=== PATIENT | female | born 1975 | race Caucasian/White ===

== ENCOUNTER 2017-10-11 11:16 | Emergency (ER) | payer OTHER, SELFPAY | END 2017-10-11 12:58 | disposition home or self-care (01) | PROVIDERS: Emergency Provider Emergency Medicine; Family Provider Internal Medicine Adolescent Medicine; Visit Provider Emergency Medicine | DX: S83.92XA Sprain of unspecified site of left knee, initial encounter (principal); S20.211A Contusion of right front wall of thorax, initial encounter; W18.2XXA Fall in (into) shower or empty bathtub, initial encounter; Y92.002 Bathroom of unspecified non-institutional (private) residence as the place of occurrence of the external cause; Z79.899 Other long term (current) drug therapy; E11.9 Type 2 diabetes mellitus without complications; I10 Essential (primary) hypertension; E78.5 Hyperlipidemia, unspecified; K21.9 Gastro-esophageal reflux disease without esophagitis; D64.9 Anemia, unspecified; Z88.6 Allergy status to analgesic agent | CPT/HCPCS: 71101; 73562; 99282 ==

== ENCOUNTER → 2017-11-20 14:44 | Outpatient (CLI) | payer MEDICAID, SELFPAY ==
[2017-11-20 16:37] LABS: Blood Urea Nitrogen 14 mg/dL (7-18); Creatinine,Serum 0.84 mg/dL (0.55-1.02); Estimated Glomerular Filt Rate 74 ml/min (>60); GFR (African American) 89 ML/MIN (>60)
== END ==
PROVIDERS: PCP Internal Medicine Adolescent Medicine; Visit Provider Podiatrist
DX: M79.671 Pain in right foot (principal); M79.672 Pain in left foot; M72.2 Plantar fascial fibromatosis
CPT/HCPCS: 36415; 82565; 84520

== ENCOUNTER → 2017-11-21 12:56 | Outpatient (CLI) | payer MEDICAID, SELFPAY ==
--- NOTE | 2017-11-21 13:02 | MR_ITS ---
MR foot RT wo/w con Ordering Physician: Nichole Phan DPM Patient Age: 42 years: Female . HISTORY: ITS.REASON: RT PT, FDL TENDON TRANSFER, R/O NEW TEAR Status post right posterior tibialis tendon repairFDL transfer surgery. Excision of bone spur medial malleolus to 2916. 1. Pain in both feet M79.671; M79.672 2. Posterior tibial tendon dysfunction (PTTD) of right lower extremity 3. Plantar fasciitis of right foot 4. Plantar fasciitis of left foot M72.2 TECHNIQUE: Multiplanar multisequence imaging on 1.5 Renee MRI right foot COMPARISON :Previous radiographs 08/17/2016 & September 03, 2017 FINDINGS . I believe there is Abnormal signal is seen throughout the tibialis posterior tendon. Begins proximally and I believe evident just behind the medial medial malleolus. More distally Postsurgical changes are seen at the medial aspect of navicular at the posterior tibialis tendon insertion region. The flexor digitalis longus tendon appears relatively enlarged & hypertrophied. It seems to blend in with the medial aspect of of navicular which may reflect the reported FD L tendon transfer procedure.. There are likely some scarring & fibrosis here accounting for low signal changes here overlying the medial margin of the navicular. The recent weightbearing plain films shows slight pes planus is less evident on the MR.. The metatarsals & tarsals intact.. Minimal spurring at insertion of Achilles tendon. No remarkable plantar calcaneal spur noted on MR normal recent prior films. No inflammation along the plantar aponeurosis. The ankle joint maintained. Subtalar joint upper normal fluid. Scant edema throughout soft tissues of the heel pad region negligible. There is some mild roughening at tip of the medial malleolus which may reflect a previous trimmed spurring in this region. Nonspecific ill-defined IMPRESSION Postsurgical changes medial aspect navicular and overlying this region are evident reflecting theFDL transfer to address the abnormal posterior tibialis tendon . There appear to be abnormal signal and atrophy of the posterior tibialis tendon with slight enlargement of the flexor digitorum longus tendon behind the medial malleolus.
== END ==
PROVIDERS: Family Provider Internal Medicine Adolescent Medicine; PCP Internal Medicine Adolescent Medicine; Visit Provider Podiatrist
DX: M79.671 Pain in right foot (principal)
CPT/HCPCS: 73720; A9576

== ENCOUNTER → 2017-12-03 17:16 | Outpatient (CLI) | payer MEDICAID, SELFPAY | PROVIDERS: Visit Provider Podiatrist | DX: M21.41 Flat foot [pes planus] (acquired), right foot (principal); M21.42 Flat foot [pes planus] (acquired), left foot; M79.671 Pain in right foot; M79.672 Pain in left foot; S86.892A Other injury of other muscle(s) and tendon(s) at lower leg level, left leg, initial encounter ==

== ENCOUNTER → 2017-12-05 08:00 | Outpatient (CLI) | payer MEDICAID, SELFPAY ==
--- NOTE | 2017-12-05 15:38 | XR_ITS ---
XR ankle LT min 3V HISTORY: Left ankle pain ORDERING PHYSICIAN: Nichole Phan DPM PATIENT AGE: 42 years COMPARISON: 09/03/2017 FINDINGS: No fracture or dislocation. No lytic or blastic change. There is normal mineralization.. The joint spaces are well-preserved. No significant degenerative/arthritic changes. No erosive changes evident. Minimal spurring once again noted involving the major distal tibia. Small calcaneal spur noted IMPRESSION: No change no acute finding. Minimal spurring anterior distal tibia with small calcaneal spur present
--- NOTE | 2017-12-05 15:38 | XR_ITS ---
XR ankle RT min 3V HISTORY: ITS.REASON: BILATERAL ANKLE PAIN ORDERING PHYSICIAN: Nichole Phan DPM PATIENT AGE: 42 years COMPARISON: 09/03/2017 FINDINGS: Weightbearing views are performed No fracture or dislocation. No lytic or blastic change. There is normal mineralization.. The joint spaces are well-preserved. No significant degenerative/arthritic changes. No erosive changes evident. There is a small calcific density at the medial malleolus nonspecific and may be due to old injury. There is minimal spurring of the anterior distal tibia as before IMPRESSION: 1. No no change with no acute finding. 2. Suspect old small avulsion fracture medial malleolus
== END ==
PROVIDERS: Visit Provider Podiatrist
DX: M25.571 Pain in right ankle and joints of right foot; M25.572 Pain in left ankle and joints of left foot
CPT/HCPCS: 73610

== ENCOUNTER 2017-12-11 08:59 | Outpatient (RCR) | payer MEDICAID, SELFPAY ==
--- NOTE | 2017-12-11 09:41 | HMH.PTOPEV ---
Rehab Outpatient Evaluation Rehab OP Evaluation Start: 12/11/17 09:30 Freq: Status: Active Protocol: Document 12/11/17 09:30 MAGGY (Rec: 12/11/17 09:40 MAGGY [id number]) Electronically Signed By Neri Rogers, PT 12/11/17 09:30 Outpatient Therapy Subjective History Subjective History Pt reports h/o chronic R foot pain since undergoing sx. in 2015 for a FDL T/F. Pt reports sx. procedure improved s/s for a while, but a 'new pain' started ~6 months ago. Pt reports medial aspect foot pain, with referred pain into medial ankle/calf area. Chief Complaint Pain Symptom Type Ache Throb Sharp Dull Symptoms Relieved By Rest/Positioning Symptoms Aggravated By Standing Physical Activity Walking Prior Functional Limitations Housework Standing Walking Current Functional Limitations Housework Standing Walking Symptom Description Constant but Variable Level of pain today (0-10) 3 Pain scale - at its best (0-10) 2 Pain scale - at its worst (0-10) 5 Ankle/Foot Eval Gait Observation General Gait Pattern Observation No Deviations/Normal Antalgic Gait Assistive Device Ambulation Assistive Device None Palpation Tenderness right Ankle/Foot Palpation Findings Tenderness Ankle/Foot Palpation Overall Comment 3/4 post. tib. tendon ROM left Ankle/Foot ROM Reason Not Measured Within Functional Limits right Ankle/Foot Dorsiflexion w/Knee Flexed 0-10 Active Range of Motion (degrees) Ankle/Foot Plantar Flexion Active Range 0-50 of Motion (degrees) Ankle/Foot Eversion Active Range of 0-30 Motion (degrees) Ankle/Foot Inversion Active Range of 0-35 Motion (degrees) Ankle/Foot ROM Limitations Pain MMT left Ankle Dorsiflexion Strength Grade 4 Good Ankle Plantarflexion Strength Grade 4 Good Foot Eversion Strength Grade 4- Good- Foot Inversion Strength Grade 4- Good- right Ankle Dorsiflexion Strength Grade 4- Good- Ankle Plantarflexion Strength Grade 4- Good- Foot Eversion Strength Grade 4- Good- Foot Inversion Strength Grade 3+ Fair+ Outpatient Therapy Assessment Impairments Problems/Impairmments Palpation Tenderness
== END 2017-12-11 09:00 | disposition home or self-care (01) ==
LOC: PT 08:59
PROVIDERS: Family Provider Internal Medicine Adolescent Medicine; Visit Provider Podiatrist
DX: M21.41 Flat foot [pes planus] (acquired), right foot (principal); M21.42 Flat foot [pes planus] (acquired), left foot; M79.671 Pain in right foot; M79.672 Pain in left foot; S86.892A Other injury of other muscle(s) and tendon(s) at lower leg level, left leg, initial encounter

== ENCOUNTER → 2017-12-12 12:29 | Outpatient (CLI) | payer MEDICAID, SELFPAY ==
[2017-12-12 12:58] LABS: Basophils % 0.3 % (0.1-2.0); Eosinophils # 0.1 K/mm3 (0.0-0.4); Eosinophils % 0.6 % (0.1-12.0); Hematocrit 36.3 % (37.0-47.0); Hemoglobin 12.2 g/dL (12.2-16.2); Lymphocytes # 2.9 K/mm3 (0.7-4.5); Lymphocytes % 23.8 K/mm3 (10-50); Mean Corpuscular HGB Conc 33.6 g/dL (31.8-35.4); Mean Corpuscular Hemoglobin 25.9 pg (27.0-31.2); Mean Corpuscular Volume 77.3 fl (81-99); Mean Platelet Volume 7.4 fl (7.4-10.4); Monocytes # 0.6 K/mm3 (0.1-1.0); Monocytes % 4.5 % (1.7-9.3); Neutrophils # 8.7 K/mm3 (1.8-7.8); Neutrophils % 70.8 % (37.0-80.0); Platelet Count 367 K/mm3 (142-424); Red Blood Count 4.69 M/mm3 (4.20-5.40); Red Cell Distribution Width 13.7 % (11.5-17.5); White Blood Count 12.3 K/mm3 (4.8-10.8)
[2017-12-12 13:16] LABS: Alanine Aminotransferase 29 U/L (12-78); Albumin Level 3.5 gm/dL (3.4-5.0); Albumin/Globulin Ratio 0.9 (1.1-1.8); Alkaline Phosphatase 68 U/L (46-116); Anion Gap 11.9 mEq/L (5-15); Aspartate Amino Transferase 10 U/L (15-37); Bilirubin,Total 0.4 mg/dL (0.2-1.0); Blood Urea Nitrogen 17 mg/dL (7-18); Calcium 9.2 mg/dL (8.5-10.1); Carbon Dioxide 27 mmol/L (21.0-32.0); Chloride 104 mmol/L (98-107); Chol/HDL Ratio 3.4 (1-3.5); Cholesterol 163 mg/dL (140-200); Creatinine,Serum 0.85 mg/dL (0.55-1.02); Estimated Glomerular Filt Rate 73 ml/min (>60); GFR (African American) 88 ML/MIN (>60); Glucose 131 mg/dL (74-106); HDL Cholesterol 48 mg/dL (29-89); LDL Cholesterol 54 mg/dL (0-130); Potassium 3.9 mmoL/L (3.5-5.1); Sodium 139 mmol/L (136-145); Thyroid Stimulating Hormone 2.33 uIU/ml (0.358-3.740); Total Protein,Serum 7.5 gm/dL (6.4-8.2); Triglycerides 305 mg/dL (30-200); VLDL Cholesterol 61 mg/dL (0-40)
[2017-12-12 14:00] LABS: Hemoglobin A1C 6.8 % (0.0-7.0)
== END ==
PROVIDERS: PCP Internal Medicine Adolescent Medicine; Visit Provider Internal Medicine Adolescent Medicine
DX: E78.5 Hyperlipidemia, unspecified (principal); E11.9 Type 2 diabetes mellitus without complications; E04.1 Nontoxic single thyroid nodule; K62.5 Hemorrhage of anus and rectum
CPT/HCPCS: 36415; 80053; 80061; 83036; 84443; 85025

== ENCOUNTER → 2017-12-14 09:44 | Outpatient (POV) | payer MEDICAID, SELFPAY | PROVIDERS: Visit Provider Podiatrist | DX: Z00.00 Encounter for general adult medical examination without abnormal findings (principal) ==

== ENCOUNTER → 2018-01-11 11:31 | Outpatient (POV) | payer MEDICAID, SELFPAY | PROVIDERS: Visit Provider Podiatrist | DX: Z00.00 Encounter for general adult medical examination without abnormal findings (principal) ==

== ENCOUNTER 2018-03-07 08:00 | Outpatient (RCR) | payer MEDICAID, SELFPAY ==
--- NOTE | 2018-01-30 14:55 | HMH.PTOPEV ---
Rehab Outpatient Evaluation Rehab OP Evaluation Start: 01/29/18 17:22 Freq: Status: Active Protocol: Document 01/29/18 17:22 RUBY (Rec: 01/29/18 18:23 MAGILANNY [id number]) Electronically Signed By Zeferino Berg, PT 01/29/18 17:22 Outpatient Therapy Subjective History Subjective History Ms. Farfan is a 42 year old female who presents to outpatient PT for chronic bilateral ft. pain R>L for a few years of insidious onset that has progressively gotten worse per pt. report. Patient underwent surgical reconstruction R posterior tibialis tendon with FDL transfer in 2016. Obserbvation indicates significant bilateral pes planus. Pt. currently using orthotics for arch support for approximatley 1 month. PMH includes HTN, high cholesterol , hysterectomy. Chief Complaint Pain Symptom Type Sharp Other Symptoms Relieved By Rest/Positioning Heat Ice Brace/Support OTC Meds Prescription Meds Symptoms Aggravated By Standing Physical Activity Walking Prior Functional Limitations None Current Functional Limitations Housework Standing Squatting Recreation Activity Walking Stairs Balance Symptom Description Activity Dependent Level of pain today (0-10) 0 Pain scale - at its best (0-10) 0 Pain scale - at its worst (0-10) 7 Ankle/Foot Eval Gait Observation General Gait Pattern Observation Antalgic Gait Assistive Device Ambulation Assistive Device None Palpation Tenderness right Ankle/Foot Palpation Findings Tenderness Ankle/Foot Palpation Overall Comment R post. tibialis insertion 2/4 +TTP ATF TTP negative PTF TTP negative CF TTP negative Deltoid ligament TTP negative left Ankle/Foot Palpation Findings None/Nor
--- NOTE | 2018-03-07 10:08 | HMH.RHREAS ---
Rehab Reassessment Rehab OP Re-assessment Start: 03/07/18 08:20 Freq: Status: Active Protocol: Document 03/07/18 08:20 RUBY (Rec: 03/07/18 08:55 RUBY [id number]) Electronically Signed By Zeferino Berg, PT 03/07/18 08:20 Rehab Re-assessment Subjective Subjective Pt reports 0% improvement to date. Pt reports non- compliance with HEP. Objective Objective Notes AROM: -DF: 3 -PF: 60 -INV: 35 -EV: 16 MMT: -INV 4/5 -PF 4/5 -DF 4+/5 -EV 4+/5 Pain: current 01/29; worst past week 05/31 Neuro: WNL Assessment Progress Assessment Slower Than Expected Assessment Notes Non-compliance with HEP/ regular attendance to treatment noted. Persistent functional limitations with any standing/walking activity. Reviewed importance of attendance and completion of HEP for decreased symptoms. Patient goals met STG's Goals Not Met LTG's Revised Goals NA Plan Plan Continue with POC Frequency of Therapy 2x/week Duration of therapy 4 weeks Time and Billing Re-Eval Time 15 Re-Eval Billing Units 1 PHYSICIAN CERTIFICATION: I certify the specified therapy services for Ena Farfan are required, authorized, and reviewed every 30 days.
== END 2018-03-07 08:01 | disposition home or self-care (01) ==
LOC: PT 08:00
PROVIDERS: Family Provider Internal Medicine Adolescent Medicine; PCP Internal Medicine Adolescent Medicine; Visit Provider Podiatrist
DX: M76.822 Posterior tibial tendinitis, left leg (principal); M76.821 Posterior tibial tendinitis, right leg
CPT/HCPCS: 97014; 97016; 97033; 97035; 97110; 97164; G0283

== ENCOUNTER 2018-03-14 08:10 | Observation (INO) ==
--- NOTE | 2018-03-14 08:55 | Emergency Department Note ---
ED Disposition Clinical Impression: Atypical chest pain, Hypertension, Diabetes, Chest pain, Elevated d-dimer Disposition: Still a Patient Condition on Discharge: Fair Referrals: Sang Araiza MD [Primary Care Provider] - - Critical Care Critical Care Time: No Attestation: On 03/14/18, the high probability of a clinically significant, sudden or life threatening deterioration of the following system(s) required my full and direct attention, intervention and personal management. The time I documented below is in addition to time spent performing reported procedures but includes the following listed in this critical care notation. Medical Decision Making - Wyatt Inquiry Pt receiving controlled substance: No Wyatt was queried for this patient: No Vital Signs: 03/14/18 08:11 03/14/18 09:11 03/14/18 12:00 Temperature 98.0 F 98.0 F Temperature Source Oral Oral Pulse Rate [Right Radial] 76 79 77 Respiratory Rate 20 18 18 Blood Pressure [Right Arm] 148/99 133/100 126/80 Blood Pressure Mean [Right Arm] 115 111 95 Blood Pressure Source [Right Arm] Automatic Cuff Automatic Cuff Blood Pressure Position [Right Arm] Sitting Sitting 02 Sat by Pulse Oximetry 98 97 95 Oxygen Delivery Method Room Air Room Air - Lab Data Lab Results 03/14/18 09:10: WBC 6.4, RBC 4.74, Hgb 11.7 L, Hct 34.9 L, MCV 73.5 L, MCH 24.7 L, MCHC 33.7, RDW 14.3, Plt Count 337, MPV 7.8, Neut % (Auto) 63.1, Lymph % ( Auto) 31.2, [place] % (Auto) 4.0, Eos % (Auto) 1.2, Baso % (Auto) 0.5, Neut # (Auto ) 4.0, Lymph # (Auto) 2.0, [place] # (Auto) 0.3, Eos # (Auto) 0.1, Baso # (Auto) 0.0, ESR 29 H 03/14/18 09:10: D-Dimer 602 H* 03/14/18 09:10: Sodium 135 L, Potassium 4.1, Chloride 103, Carbon Dioxide 21, Anion Gap 15.1 H, BUN 18, Creatinine 0.80, Estimated Creat Clear 138, Estimated GFR 78, Est GFR ( Amer) 94, Glucose 178 H, Calcium 9.3, Total Bilirubin 0.4, AST 17, ALT 25, Alkaline Phosphatase 74, Total Creatine Kinase 98, CK-MB ( CK-2) 1.1, CK-MB (CK-2) Rel Index 1.1, Troponin I < 0.02, C-Reactive Protein < 0.2, Total Protein 7.7, Albumin 3.5, Globulin 4.2 H, Albumin/Globulin Ratio 0.8 L 03/14/18 09:10: B-Natriuretic Peptide 12 Result diagrams: 03/14/18 09:10 03/14/18 09:10 Orders (Tests/Meds): ED MEDICATIONS Discontinued Medications Generic Name Dose Route Start Last Admin Trade Name Freq PRN Reason Stop Dose Admin Amlodipine Besylate 5 mg 03/14/18 11:55 03/14/18 12:49 Norvasc 5mg Tablet PO 03/14/18 11:56 5 mg ONCE ONE Administration Aspirin 324 mg 03/14/18 09:11 03/14/18 09:20 Aspirin 81mg Chewable Tablet PO 03/14/18 09:12 324 mg ONCE ONE Administration Iopamidol 70 ml 03/14/18 12:18 03/14/18 12:19 [id number]-204; 100ml Vial IV 03/14/18 12:19 70 ml ONCE ONE Administration Nitroglycerin 0.4 mg 03/14/18 08:51 03/14/18 09:20 Nitrostat 0.4mg Sl Tablet SL 03/14/18 08:52 0.4 mg ONCE ONE Administration Sodium Chloride 50 ml 03/14/18 12:18 03/14/18 12:19 Rad-Ns 50ml Vial IV 03/14/18 12:19 50 ml ONCE ONE Administration Sodium Chloride 10 ml 03/14/18 12:18 03/14/18 12:19 Rad-Saline Flush 10ml Syringe IV 03/14/18 12:19 10 ml ONCE ONE Administration - Radiology Data #1 Image(s): Chest Image Reviewed: Yes I reviewed the patient's radiology image Preliminary Findings: Abnormal IMPRESSION: 1. No acute finding. 2. Subtle increased density left paraspinal region at the cardiophrenic angle which may be better evaluated with CT. Mediastinal fat pad, hiatal hernia, or mass is a consideration. I did order a ct chest. the reading is pending. - CT Data CT Scan: Chest Time Received: 12:[address] Reviewed: Yes: I discussed the CT results w/the radiologist, I have viewed the radiologist's interpretation Preliminary Findings: Normal/NAD - ECG Data Tracing #1 Normal sinus rhythm 78/min baseline artifact poor R-wave progression is no acute findings. ECG initial impression date: 03/14/18 ECG initial impression time: 08:11 Medical Decision Narrative: 1200 PM The patient remained chest pain-free underwent negative CT scan for pulmonary embolism consult who agreed to see the patient in consultation for possible cardiac catheterization. 1230 spoke to María Araiza's private nurse practitioner accepted the patient for admission. 1233 patient declined admission because of recent graduation she understand the risk of heart attack and . 1325 the patient agreed for admission. Chest Pain HPI - General Chief Complaint: Chest Pain Stated Complaint: CHEST PAIN/SOA Time Seen by Provider: 03/14/18 08:11 Mode of Arrival: Ambulatory Limitations: No Limitations Description of Symptoms (Recalled from ER Triage Doc. by RN): CHEST PAIN SINCE YESTERDAY MORNING WHILE AT WORK DOING [employer]. CHEST PAIN LASTED A COUPLE HOURS AND STOPPED. CP CAME BACK AT MIDNIGHT, ACCOMPANIED BY SOA AND NAUSEA. - History of Present Illness HPI narrative: 42 years old white female non-smoker with history of hypertension and diabetes mellitus. Yesterday , she developed left upper chest sharp pain rated 6/10 worse with deep inspiration that lasted from 9 AM until noon. The pain subsided spontaneously and reoccurred at midnight rated 10/10 when she was laying down and got better this morning to 6/10. She admits for mild shortness of breath without palpitations or hemoptysis. She has no hematemesis coffee- ground emesis melanotic stool or bleeding per rectum. MD complaint: chest pain Onset (ago): day(s) (1 day.) Time: 00:00 Duration: constant Activity at onset: during rest Pain location: left chest Severity: moderate Severity scale (1-10): 6 Quality: sharp Exacerbating factors: inspiration Risk Factors for CAD: Hypertension, Diabetes Treatments prior to or on arrival for Cardiac Chest Pain: none - Related Data Home Medications Medication Instructions Recorded Confirmed atorvastatin 40 mg tablet 40 mg PO QDAY 10/25/17 03/14/18 carvedilol 25 mg tablet 25 mg PO BID 10/25/17 03/14/18 hydrochlorothiazide 25 mg tablet 25 mg PO QDAY 10/25/17 03/14/18 lisinopril 10 mg tablet 10 mg PO QDAY 10/25/17 03/14/18 meloxicam 7.5 mg tablet 7.5 mg PO QDAY 10/25/17 03/14/18 metformin 500 mg tablet 500 mg PO BID 10/25/17 03/14/18 omeprazole 20 mg capsule,delayed 20 mg PO ONCE 10/25/17 03/14/18 release potassium chloride ER 20 mEq 20 meq PO QDAY 10/25/17 03/14/18 tablet,extended release Previous Rx's Medication Instructions Recorded diclofenac 1 % topical gel 4 g TOPICAL QID #30 g 12/03/17 Allergies Allergy/AdvReac Type Severity Reaction Status Date / Time acetaminophen [From ULTRACET] Allergy Unknown Verified 03/14/18 08:19 tramadol [TRAMADOL] Allergy Unknown I-ITCHING Verified 03/14/18 08:19 [facility] History I have reviewed the patient's past medical history: Yes Medical History: Reports:: Diabetes Mellitus Type 2, Hyperlipidemia, Hypertension Denies:: Cancer, Diabetes Mellitus Type 1, MRSA Other Medical History: Reports: Arthritis. Denies: Hypothyroidism, Thyroid Disease Other Surgeries: Yes: Hysterectomy-Partial, Tubal Ligation, Other Amputation: No Fractures: No Comment: S/p right posterior tibial tendon repair, flexor digitorum longus tendon transfer and excision of medial malleolus bone spur (Dr. Marcel Benitez, ) - Social History Educational Level: Completed High School Smoking Status: Former smoker Tobacco Type: cigarettes # Packs/Day (cigarettes): 0 #Yrs smoked (if former smoker): 12 Alcohol Intake: never Alcohol Intake Frequency:: other Substance Use Type: denies use Occupational Status: employed - Psychiatric History Expresses thoughts of harming self/others: None Suicide Plan Description: No Plan Family Hx:: Diabetes, Hypertension, Hyperlipidemia Comment: heart murmur, irregular heart rate ROS Obtained: Yes All systems reviewed & no additional complaints Physical Exam - General General appearance: alert, in no apparent distress - Head Head exam: atraumatic, normocephalic, normal inspection - Eye Eye exam: Present: normal appearance, PERRL, EOMI - ENT ENT exam: Present: normal exam, normal oropharynx, mucous membranes moist, TM's normal bilaterally, normal external ear exam - Neck Neck exam: Present: normal inspection, full ROM, trachea midline. Absent: tenderness, meningismus, lymphadenopathy - Chest Chest inspection: Present: normal inspection, symmetric chest wall rise. Absent : tenderness - Respiratory Respiratory exam: Present: normal lung sounds bilaterally. Absent: respiratory distress - Cardiovascular Cardiovascular exam: Present: regular rate, normal rhythm. Absent: JVD - Abdominal Exam Abdominal exam: Present: soft, normal bowel sounds. Absent: distention, tenderness, guarding, rebound, rigidity - Extremities Exam Extremities exam: Present: normal inspection, full ROM, normal capillary refill. Absent: calf tenderness - Back Exam Back exam: Present: normal inspection. Absent: tenderness - Neurological Exam Neurological exam: Present: alert, oriented X3, CN II-XII intact, normal gait, motor sensory deficit, reflexes normal - Psychiatric Psychiatric exam: Present: normal affect, normal mood - Skin Skin exam: Present: warm, dry, intact, normal color - Lymphatic Lymphatic Findings: no adenopathy
[2018-03-14 09:31] LABS: Basophils % 0.5 % (0.1-2.0); Eosinophils # 0.1 K/mm3 (0.0-0.4); Eosinophils % 1.2 % (0.1-12.0); Hematocrit 34.9 % (37.0-47.0); Hemoglobin 11.7 g/dL (12.2-16.2); Lymphocytes % 31.2 K/mm3 (10-50); Mean Corpuscular HGB Conc 33.7 g/dL (31.8-35.4); Mean Corpuscular Hemoglobin 24.7 pg (27.0-31.2); Mean Corpuscular Volume 73.5 fl (81-99); Mean Platelet Volume 7.8 fl (7.4-10.4); Monocytes # 0.3 K/mm3 (0.1-1.0); Neutrophils % 63.1 % (37.0-80.0); Platelet Count 337 K/mm3 (142-424); Red Blood Count 4.74 M/mm3 (4.20-5.40); Red Cell Distribution Width 14.3 % (11.5-17.5); White Blood Count 6.4 K/mm3 (4.8-10.8)
[2018-03-14 10:05] LABS: Alanine Aminotransferase 25 U/L (12-78); Albumin Level 3.5 gm/dL (3.4-5.0); Albumin/Globulin Ratio 0.8 (1.1-1.8); Alkaline Phosphatase 74 U/L (46-116); Anion Gap 15.1 mEq/L (5-15); Aspartate Amino Transferase 17 U/L (15-37); Bilirubin,Total 0.4 mg/dL (0.2-1.0); Blood Urea Nitrogen 18 mg/dL (7-18); Calcium 9.3 mg/dL (8.5-10.1); Carbon Dioxide 21 mmol/L (21.0-32.0); Chloride 103 mmol/L (98-107); Creatine Kinase 98 U/L (26-192); Globulin 4.2 gm/dl (1.3-3.2); Glucose 178 mg/dL (74-106); Potassium 4.1 mmoL/L (3.5-5.1); Sodium 135 mmol/L (136-145); Total Protein,Serum 7.7 gm/dL (6.4-8.2)
[2018-03-14 10:24] LABS: Erythrocyte Sedimentation Rate 29 mm/hr (0-20)
[2018-03-14 10:40] LABS: C-Reactive Protein < 0.2 mg/L (0.0-0.9)
--- NOTE | 2018-03-14 14:20 | Pharmacy Consult Notes ---
[facility] Pharmacy VTE Monitoring - Patient Demographics Admission date: 03/14/18 Report Date: 03/14/18 Time: 14:20 Allergies/Adverse Reactions: Patient Allergies acetaminophen [From ULTRACET] Allergy (Unknown, Verified 03/14/18 08:19) tramadol [TRAMADOL] Allergy (Unknown, Verified 03/14/18 08:19) I-ITCHING Height: 1.57 m Weight: 97.522 kg Patient Problems: Current Active Problems Atypical chest pain (Acute) Hypertension (Acute) Diabetes (Acute) Chest pain (Acute) Elevated d-dimer (Acute) - VTE Risk Labs: VTE Related Lab Results Hgb 11.7 g/dL (12.2-16.2) L 03/14/18 09:10 Hct 34.9 % (37.0-47.0) L 03/14/18 09:10 Plt Count 337 K/mm3 (142-424) 03/14/18 09:10 BUN 18 mg/dL (7-18) 03/14/18 09:10 Creatinine 0.80 mg/dL (0.55-1.02) 03/14/18 09:10 Estimated Creat Clear 138 mL/min (0-300) 03/14/18 09:10 Clinical Trial Participant: No - Prophylaxis VTE Prophylaxis Ordered?: Yes Types of VTE Prophylaxis: TEDS Knee High
--- NOTE | 2018-03-14 14:54 | Consult Report ---
History of Present Illness Consult date: 03/14/18 Requesting physician: Sang Araiza Consult reason: chest pain Chief complaint: chest pain Additional Medical History:: 1. DM, treated for about 8 yrs 2. Obesity 3. HTN 4. Hyperlipidemia History of present illness: 42-year-old white female with history of diabetes, hypertension hyperlipidemia presented to the emergency department for recurrent episodes of chest pain. Initial chest pain started yesterday evening and resolve spontaneously. Symptoms recurred in the middle of the night about 2 AM and woke her from sleep. Symptoms continued until she reached the ER at which time nitroglycerin was given and symptoms resolved. Initial troponin noted to be normal. EKG is sinus rhythm without acute ST segment changes. Cardiology consulted for evaluation recommendations. D-dimer noted to be [address] of the chest showing no evidence of pulmonary embolism. [facility] History Medical History: Reports:: Diabetes Mellitus Type 2, Hyperlipidemia, Hypertension Denies:: Cancer, Diabetes Mellitus Type 1, MRSA Other Medical History: Reports: Arthritis. Denies: Hypothyroidism, Thyroid Disease Other Surgeries: Yes: Hysterectomy-Partial, Tubal Ligation, Other Amputation: No Fractures: No - *Social History Educational Level: Completed High School Smoking Status: Former smoker Tobacco Type: cigarettes # Packs/Day (cigarettes): 0 #Yrs smoked (if former smoker): 12 Alcohol Intake: never Alcohol Intake Frequency:: other Substance Use Type: denies use Occupational Status: employed - Psychiatric History Expresses thoughts of harming self/others: None Suicide Plan Description: No Plan *Family Hx:: Diabetes, Hypertension, Hyperlipidemia Meds Home Medications Medication Instructions Recorded Confirmed Type atorvastatin 40 mg tablet 40 mg PO DAILY 10/25/17 03/14/18 History carvedilol 25 mg tablet 25 mg PO BID 10/25/17 03/14/18 History hydrochlorothiazide 25 mg tablet 25 mg PO DAILY 10/25/17 03/14/18 History lisinopril 10 mg tablet 10 mg PO DAILY 10/25/17 03/14/18 History meloxicam 7.5 mg tablet 7.5 mg PO DAILY 10/25/17 03/14/18 History metformin 500 mg tablet 500 mg PO DAILY 10/25/17 03/14/18 History omeprazole 20 mg capsule,delayed 20 mg PO DAILY 10/25/17 03/14/18 History release Cetirizine HCl 10 mg PO DAILY 03/14/18 03/14/18 History Fluticasone Propionate 1 spr IH DAILY 03/14/18 03/14/18 History Linaclotide [Linzess] 145 mcg PO DAILY 03/14/18 03/14/18 History Potassium Chloride [Klor-con 20 20 meq PO DAILY 03/14/18 03/14/18 History mEq tablet] Ropinirole HCl 0.25 - 0.5 mg PO HS 03/14/18 03/14/18 History Allergies Allergy/AdvReac Type Severity Reaction Status Date / Time acetaminophen [From ULTRACET] Allergy Unknown Verified 03/14/18 08:19 tramadol [TRAMADOL] Allergy Unknown I-ITCHING Verified 03/14/18 08:19 Review of Systems - *Cardiovascular Reports chest pain, Reports shortness of breath with activity - *Respiratory Reports shortness of breath with activity - *Gastrointestinal Denies abdominal pain - *Neurologic Denies abnormal speech Exam Vital signs and Labs for Last 24 Hours: Temp Pulse Resp BP Pulse Ox 98.1 F 71 16 159/73 99 03/14/18 13:30 03/14/18 13:30 03/14/18 13:30 03/14/18 13:30 03/14/18 13:30 Laboratory Results - last 24 hr 03/14/18 09:10: WBC 6.4, RBC 4.74, Hgb 11.7 L, Hct 34.9 L, MCV 73.5 L, MCH 24.7 L, MCHC 33.7, RDW 14.3, Plt Count 337, MPV 7.8, Neut % (Auto) 63.1, Lymph % ( Auto) 31.2, [place] % (Auto) 4.0, Eos % (Auto) 1.2, Baso % (Auto) 0.5, Neut # (Auto ) 4.0, Lymph # (Auto) 2.0, [place] # (Auto) 0.3, Eos # (Auto) 0.1, Baso # (Auto) 0.0, ESR 29 H 03/14/18 09:10: D-Dimer 602 H* 03/14/18 09:10: Sodium 135 L, Potassium 4.1, Chloride 103, Carbon Dioxide 21, Anion Gap 15.1 H, BUN 18, Creatinine 0.80, Estimated Creat Clear 138, Estimated GFR 78, Est GFR ( Amer) 94, Glucose 178 H, Calcium 9.3, Total Bilirubin 0.4, AST 17, ALT 25, Alkaline Phosphatase 74, Total Creatine Kinase 98, CK-MB ( CK-2) 1.1, CK-MB (CK-2) Rel Index 1.1, Troponin I < 0.02, C-Reactive Protein < 0.2, Total Protein 7.7, Albumin 3.5, Globulin 4.2 H, Albumin/Globulin Ratio 0.8 L 03/14/18 09:10: B-Natriuretic Peptide 12 I & O for Last 24 hours: Intake & Output 03/12/18 03/13/18 03/14/18 03/15/18 11:59 11:59 11:59 11:59 Weight 215 lb 215 lb - *Routine Neck Exam Absent: JVD, carotid bruit - *Routine Respiratory Exam Present: CTA bilaterally - *Routine Cardiovascular Exam Present: RRR. Absent: murmur, gallop, rubs - *Routine Extremities Exam Absent: edema - *Routine Neurological Exam Present: alert, oriented X3, moving all extremities Assessment and Plan (1) Hyperlipidemia associated with type 2 diabetes mellitus Current visit: Yes Status: Acute Category: Medical Code(s): E11.69 - Type 2 diabetes mellitus with other specified complication; E78.5 - Hyperlipidemia, unspecified (2) Chest pain Current visit: Yes Status: Acute Category: Medical Code(s): R07.9 - Chest pain, unspecified (3) Diabetes Current visit: Yes Status: Acute Category: Medical Code(s): E11.9 - Type 2 diabetes mellitus without complications (4) Hypertension Current visit: Yes Status: Acute Category: Medical Code(s): I10 - Essential (primary) hypertension - Assessment and plan all Dx Assessment and Plan for all problems:: 1. Add norvasc 5 mg and ASA 81 mg PO daily to her medical regimen for chest pain , BP 2. Due to the patient's body habitus, I do not feel stress testing or stress testing with Myoview is an appropriate option. 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 Recommendation is for left heart catheterization. Risks, benefits and procedure explained to the patient and she agrees to proceed.
--- NOTE | 2018-03-14 17:06 | History & Physical Report ---
*Admission Date: 03/14/18 *Chief complaint: chest pain *History of present illness: 42-year-old white female with history of diabetes, hypertension hyperlipidemia presented to the emergency department for recurrent episodes of chest pain. Initial chest pain started yesterday evening and resolve spontaneously. Symptoms recurred in the middle of the night about 2 AM and woke her from sleep. Symptoms continued until she reached the ER at which time nitroglycerin was given and symptoms resolved. Initial troponin noted to be normal. EKG is sinus rhythm without acute ST segment changes. Cardiology consulted for evaluation recommendations. D-dimer noted to be [address] of the chest showing no evidence of pulmonary embolism. Above per FELI Shabazz [facility] History I have reviewed the patient's past medical history: Yes Medical History: Reports:: Diabetes Mellitus Type 2, Hyperlipidemia, Hypertension Denies:: Cancer, Diabetes Mellitus Type 1, MRSA Other Medical History: Reports: Arthritis. Denies: Hypothyroidism, Thyroid Disease Other Surgeries: Yes: Hysterectomy-Partial, Tubal Ligation, Other Amputation: No Fractures: No - *Social History Educational Level: Completed High School Smoking Status: Former smoker Tobacco Type: cigarettes # Packs/Day (cigarettes): 0 #Yrs smoked (if former smoker): 12 Alcohol Intake: never Alcohol Intake Frequency:: other Substance Use Type: denies use Occupational Status: employed Housing: house Household Members: significant other, children - Psychiatric History Expresses thoughts of harming self/others: None Suicide Plan Description: No Plan *Family Hx:: Diabetes, Hypertension, Hyperlipidemia Review of Systems - Review of Systems Review of systems:: pertinent systems reviewed and negative unless documented below - *Cardiovascular Reports chest pain - *Neurologic Denies abnormal speech Meds Home Medications Medication Instructions Recorded Confirmed Type atorvastatin 40 mg tablet 40 mg PO DAILY 10/25/17 03/14/18 History carvedilol 25 mg tablet 25 mg PO BID 10/25/17 03/14/18 History hydrochlorothiazide 25 mg tablet 25 mg PO DAILY 10/25/17 03/14/18 History lisinopril 10 mg tablet 10 mg PO DAILY 10/25/17 03/14/18 History meloxicam 7.5 mg tablet 7.5 mg PO DAILY 10/25/17 03/14/18 History metformin 500 mg tablet 500 mg PO DAILY 10/25/17 03/14/18 History omeprazole 20 mg capsule,delayed 20 mg PO DAILY 10/25/17 03/14/18 History release Cetirizine HCl 10 mg PO DAILY 03/14/18 03/14/18 History Fluticasone Propionate 1 spr IH DAILY 03/14/18 03/14/18 History Linaclotide [Linzess] 145 mcg PO DAILY 03/14/18 03/14/18 History Potassium Chloride [Klor-con 20 20 meq PO DAILY 03/14/18 03/14/18 History mEq tablet] Ropinirole HCl 0.25 - 0.5 mg PO HS 03/14/18 03/14/18 History Allergies Allergy/AdvReac Type Severity Reaction Status Date / Time acetaminophen [From ULTRACET] Allergy Unknown Verified 03/14/18 08:19 tramadol [TRAMADOL] Allergy Unknown I-ITCHING Verified 03/14/18 08:19 Exam Vital signs and Labs for Last 24 Hours: Temp Pulse Resp BP Pulse Ox 98.3 F 81 16 143/94 99 03/14/18 15:55 03/14/18 15:55 03/14/18 15:55 03/14/18 15:55 03/14/18 15:55 Laboratory Results - last 24 hr 03/14/18 09:10: WBC 6.4, RBC 4.74, Hgb 11.7 L, Hct 34.9 L, MCV 73.5 L, MCH 24.7 L, MCHC 33.7, RDW 14.3, Plt Count 337, MPV 7.8, Neut % (Auto) 63.1, Lymph % ( Auto) 31.2, [place] % (Auto) 4.0, Eos % (Auto) 1.2, Baso % (Auto) 0.5, Neut # (Auto ) 4.0, Lymph # (Auto) 2.0, [place] # (Auto) 0.3, Eos # (Auto) 0.1, Baso # (Auto) 0.0, ESR 29 H 03/14/18 09:10: D-Dimer 602 H* 03/14/18 09:10: Sodium 135 L, Potassium 4.1, Chloride 103, Carbon Dioxide 21, Anion Gap 15.1 H, BUN 18, Creatinine 0.80, Estimated Creat Clear 138, Estimated GFR 78, Est GFR ( Amer) 94, Glucose 178 H, Calcium 9.3, Total Bilirubin 0.4, AST 17, ALT 25, Alkaline Phosphatase 74, Total Creatine Kinase 98, CK-MB ( CK-2) 1.1, CK-MB (CK-2) Rel Index 1.1, Troponin I < 0.02, C-Reactive Protein < 0.2, Total Protein 7.7, Albumin 3.5, Globulin 4.2 H, Albumin/Globulin Ratio 0.8 L 03/14/18 09:10: B-Natriuretic Peptide 12 03/14/18 14:50: Troponin I < 0.02 I & O for Last 24 hours: Intake & Output 03/12/18 03/13/18 03/14/18 03/15/18 11:59 11:59 11:59 11:59 Weight 215 lb 216 lb 2 oz Narrative: Alert and oriented x3. Rate rhythm regular. No LE edema. Pulses 2+ bilaterally. Lung sounds clear and equal. Abdomen soft and nontender. Skin pink, warm and dry. No neuro deficits. H&P: Result - Labs Labs: Short CBC 03/14/18 Range/Units 09:10 WBC 6.4 (4.8-10.8) K/mm3 Hgb 11.7 L (12.2-16.2) g/dL Hct 34.9 L (37.0-47.0) % Plt Count 337 (142-424) K/mm3 BMP 03/14/18 09:10 Sodium 135 L Potassium 4.1 Chloride 103 Carbon Dioxide 21 BUN 18 Creatinine 0.80 Glucose 178 H Calcium 9.3 Cardiac Enzymes 03/14/18 03/14/18 Range/Units 09:10 14:50 Total Creatine Kinase 98 (26-192) U/L CK-MB (CK-2) 1.1 (0.0-3.6) ng/ml Troponin I < 0.02 < 0.02 (0.00-0.06) ng/ml Liver Function 03/14/18 Range/Units 09:10 Total Bilirubin 0.4 (0.2-1.0) mg/dL AST 17 (15-37) U/L ALT 25 (12-78) U/L Alkaline Phosphatase 74 (46-116) U/L Albumin 3.5 (3.4-5.0) gm/dL Assessment and Plan (1) Hyperlipidemia associated with type 2 diabetes mellitus Current visit: Yes Status: Acute Category: Medical Code(s): E11.69 - Type 2 diabetes mellitus with other specified complication; E78.5 - Hyperlipidemia, unspecified (2) Chest pain Current visit: Yes Status: Acute Category: Medical Code(s): R07.9 - Chest pain, unspecified (3) Diabetes Current visit: Yes Status: Acute Category: Medical Code(s): E11.9 - Type 2 diabetes mellitus without complications (4) Hypertension Current visit: Yes Status: Acute Category: Medical Code(s): I10 - Essential (primary) hypertension - Assessment and plan all Dx Assessment and Plan for all problems:: Serial tropinons. NPO after midnight for LHC in the morning.
--- NOTE | 2018-03-15 07:22 | Progress Note ---
Internal Medicine - PN: Fidelia *Date: 03/15/18 *Time: 07:21 Interval history: Overnight patient is felt well. No complaints. Exam Vital signs and Labs for Last 24 Hours: Temp Pulse Resp BP Pulse Ox 98.4 F 80 20 131/81 96 03/15/18 04:00 03/15/18 06:24 03/15/18 04:00 03/15/18 04:00 03/15/18 04:00 Laboratory Results - last 24 hr 03/14/18 09:10: WBC 6.4, RBC 4.74, Hgb 11.7 L, Hct 34.9 L, MCV 73.5 L, MCH 24.7 L, MCHC 33.7, RDW 14.3, Plt Count 337, MPV 7.8, Neut % (Auto) 63.1, Lymph % ( Auto) 31.2, [place] % (Auto) 4.0, Eos % (Auto) 1.2, Baso % (Auto) 0.5, Neut # (Auto ) 4.0, Lymph # (Auto) 2.0, [place] # (Auto) 0.3, Eos # (Auto) 0.1, Baso # (Auto) 0.0, ESR 29 H 03/14/18 09:10: D-Dimer 602 H* 03/14/18 09:10: Sodium 135 L, Potassium 4.1, Chloride 103, Carbon Dioxide 21, Anion Gap 15.1 H, BUN 18, Creatinine 0.80, Estimated Creat Clear 138, Estimated GFR 78, Est GFR ( Amer) 94, Glucose 178 H, Calcium 9.3, Total Bilirubin 0.4, AST 17, ALT 25, Alkaline Phosphatase 74, Total Creatine Kinase 98, CK-MB ( CK-2) 1.1, CK-MB (CK-2) Rel Index 1.1, Troponin I < 0.02, C-Reactive Protein < 0.2, Total Protein 7.7, Albumin 3.5, Globulin 4.2 H, Albumin/Globulin Ratio 0.8 L 03/14/18 09:10: B-Natriuretic Peptide 12 03/14/18 14:50: Troponin I < 0.02 03/14/18 17:08: POC Glucose 135 H 03/14/18 20:23: Troponin I < 0.02 03/15/18 02:55: Troponin I < 0.02 03/15/18 06:16: POC Glucose 179 H I & O for Last 24 hours: Intake & Output 03/12/18 03/13/18 03/14/18 03/15/18 11:59 11:59 11:59 11:59 Intake Total 240 / 240 Balance 240 / 240 Weight 215 lb 216 lb 2 oz Narrative: Alert, oriented 3, heart rate regular. Lungs clear. Assessment and Plan (1) Hyperlipidemia associated with type 2 diabetes mellitus Current visit: Yes Status: Acute Category: Medical Code(s): E11.69 - Type 2 diabetes mellitus with other specified complication; E78.5 - Hyperlipidemia, unspecified (2) Chest pain Current visit: Yes Status: Acute Category: Medical Code(s): R07.9 - Chest pain, unspecified (3) Diabetes Current visit: Yes Status: Acute Category: Medical Code(s): E11.9 - Type 2 diabetes mellitus without complications (4) Hypertension Current visit: Yes Status: Acute Category: Medical Code(s): I10 - Essential (primary) hypertension - Assessment and plan all Dx Assessment and Plan for all problems:: Heart cath today. Depending on results may discharge later this afternoon versus intervention issues.
[2018-03-15 07:40] LABS: Anion Gap 12.9 mEq/L (5-15); Potassium 3.9 mmoL/L (3.5-5.1)
--- NOTE | 2018-03-15 16:26 | Discharge Summary ---
General - General Admission date:: 03/14/18 Discharge date: 03/15/18 HPI HPI: 42-year-old white female with history of diabetes, hypertension hyperlipidemia presented to the emergency department for recurrent episodes of chest pain. Initial chest pain started yesterday evening and resolve spontaneously. Symptoms recurred in the middle of the night about 2 AM and woke her from sleep. Symptoms continued until she reached the ER at which time nitroglycerin was given and symptoms resolved. Initial troponin noted to be normal. EKG is sinus rhythm without acute ST segment changes. Cardiology consulted for evaluation recommendations. D-dimer noted to be [address] of the chest showing no evidence of pulmonary embolism. Above per FELI Shabazz Hospital Course Hospital Course: Patient was admitted, ruled out for NC, did have an elevated d-dimer so was kept overnight and subjected to left heart cath this morning which was clear except for some 30% atherosclerotic lesions but not felt to be the cause of her chest pain and not amenable to intervention. She was counseled about cardiac risk factors, she felt much better after initial presentation to the ER with no further chest pain. She will be discharged home to follow-up routinely with me at her next scheduled visit. Objective Vital signs: Temp Pulse Resp BP Pulse Ox 97.9 F 84 18 137/87 97 03/15/18 07:53 03/15/18 14:45 03/15/18 14:45 03/15/18 14:45 03/15/18 14:45 Narrative: Positive alert, blood pressure normal, radial cath site looks great, good pulse , normal perfusion. Lungs are clear, heart rate regular. Results Labs on day of discharge: Labs from last 24 hours 03/15/18 03/15/18 03/15/18 07:19 06:16 02:55 Sodium 135 L Potassium 3.9 Chloride 102 Carbon Dioxide 24 Anion Gap 12.9 BUN 14 Creatinine 0.83 Estimated Creat Clear 134 Estimated GFR 75 Est GFR ( Amer) 90 Glucose 176 H POC Glucose 179 H Troponin I < 0.02 03/14/18 03/14/18 20:23 17:08 Sodium Potassium Chloride Carbon Dioxide Anion Gap BUN Creatinine Estimated Creat Clear Estimated GFR Est GFR ( Amer) Glucose POC Glucose 135 H Troponin I < 0.02 DS: Diagnosis - Discharge Diagnosis (1) Hyperlipidemia associated with type 2 diabetes mellitus Status: Chronic (2) Chest pain Status: Resolved (3) Diabetes Status: Chronic (4) Hypertension Status: Chronic Discharge Plan - Patient Discharge Instructions ACTIVITY: Continue current activity (No work for the next 4 days) DIET: continue same diet, diabetic diet Patient Instructions: Carbohydrate-Counting Diet - Follow up Plan Follow up with: Sang Araiza MD [Primary Care Provider] - 2 weeks Disposition: Home, Self-[facility]ci Medications: Home Medications Medication Instructions Recorded Confirmed Type atorvastatin 40 mg tablet 40 mg PO DAILY 10/25/17 03/14/18 History carvedilol 25 mg tablet 25 mg PO BID 10/25/17 03/14/18 History hydrochlorothiazide 25 mg tablet 25 mg PO DAILY 10/25/17 03/14/18 History lisinopril 10 mg tablet 10 mg PO DAILY 10/25/17 03/14/18 History meloxicam 7.5 mg tablet 7.5 mg PO DAILY 10/25/17 03/14/18 History metformin 500 mg tablet 500 mg PO DAILY 10/25/17 03/14/18 History omeprazole 20 mg capsule,delayed 20 mg PO DAILY 10/25/17 03/14/18 History release Cetirizine HCl 10 mg PO DAILY 03/14/18 03/14/18 History Fluticasone Propionate 1 spr IH DAILY 03/14/18 03/14/18 History Linaclotide [Linzess] 145 mcg PO DAILY 03/14/18 03/14/18 History Potassium Chloride [Klor-con 20 20 meq PO DAILY 03/14/18 03/14/18 History mEq tablet] Ropinirole HCl 0.25 - 0.5 mg PO HS 03/14/18 03/14/18 History Prescriptions/Medication Reconciliation: Continue meloxicam 7.5 mg tablet 7.5 mg PO DAILY hydrochlorothiazide 25 mg tablet 25 mg PO DAILY carvedilol 25 mg tablet 25 mg PO BID omeprazole 20 mg capsule,delayed release 20 mg PO DAILY lisinopril 10 mg tablet 10 mg PO DAILY metformin 500 mg tablet 500 mg PO DAILY atorvastatin 40 mg tablet 40 mg PO DAILY diclofenac 1 % topical gel 4 g TOPICAL QID #30 g Ropinirole HCl 0.25 - 0.5 mg PO HS Linaclotide [Linzess] 145 mcg PO DAILY Potassium Chloride [Klor-con 20 mEq tablet] 20 meq PO DAILY Fluticasone Propionate 1 spr IH DAILY Cetirizine HCl 10 mg PO DAILY
[2018-03-15 17:34] VITALS: BP 130/81
== END 2018-03-15 17:20 | disposition home or self-care (01) ==
LOC: 2ND 08:10 → ER 08:10 → 2ND 15:27
PROVIDERS: ADMIT Internal Medicine Adolescent Medicine; ATTEND Internal Medicine Adolescent Medicine

== ENCOUNTER 2018-07-19 15:30 | Outpatient (RCR) | payer MEDICAID, SELFPAY | END 2018-07-19 15:31 | disposition home or self-care (01) | LOC: PT 15:30 | PROVIDERS: Family Provider Internal Medicine Adolescent Medicine; PCP Internal Medicine Adolescent Medicine; Visit Provider Internal Medicine Adolescent Medicine | DX: M54.32 Sciatica, left side (principal) | CPT/HCPCS: 97010; 97012; 97014; 97035; 97110; 97163; G0283 ==

== ENCOUNTER → 2018-11-27 15:06 | Outpatient (CLI) | payer MEDICAID, SELFPAY ==
--- NOTE | 2018-11-27 15:12 | US_ITS ---
US thyroid HISTORY: ITS.REASON: THYROID NODULE ORDERING PHYSICIAN: Sang Araiza MD PATIENT AGE: 43 years Comparison: 06/06/2016 FINDINGS: The right lobe measures 4.4 x 1.5 x 1.6 cm. Nodule A: Oval hypoechoic nodule at 7 mm mid to lower pole unchanged Nodule B: 11 x 7 mm unchanged lower pole with heterogeneous echogenicity The left lobe is 4.3 x 1.6 x 2.1 cm. Nodule A: Upper pole 2.2 x 1.4 cm isoechoic not significantly changed. The isthmus is slightly thickened at 4 mm IMPRESSION: Overall no change enlarged thyroid gland with bilateral thyroid nodules
== END ==
PROVIDERS: PCP Internal Medicine Adolescent Medicine; Visit Provider Internal Medicine Adolescent Medicine
DX: E04.1 Nontoxic single thyroid nodule (principal)
CPT/HCPCS: 76536

== ENCOUNTER → 2019-05-13 17:39 | Outpatient (CLI) | payer MEDICAID, SELFPAY ==
[2019-05-13 18:46] LABS: Basophils % 0.4 % (0.1-2.0); Eosinophils % 0.4 % (0.1-12.0); Hematocrit 39.6 % (37.0-47.0); Hemoglobin 12.4 g/dL (12.2-16.2); Lymphocytes # 1.8 K/mm3 (0.7-4.5); Mean Corpuscular HGB Conc 31.4 g/dL (31.8-35.4); Mean Corpuscular Hemoglobin 23.3 pg (27.0-31.2); Mean Corpuscular Volume 74.1 fl (81-99); Monocytes # 0.4 K/mm3 (0.1-1.0); Monocytes % 6.5 % (1.7-9.3); Neutrophils # 4.5 K/mm3 (1.8-7.8); Neutrophils % 66.6 % (37.0-80.0); Platelet Count 403 K/mm3 (142-424); Red Blood Count 5.34 M/mm3 (4.20-5.40); Red Cell Distribution Width 15.1 % (11.5-17.5); White Blood Count 6.8 K/mm3 (4.8-10.8)
[2019-05-13 19:06] LABS: Alanine Aminotransferase 26 U/L (12-78); Albumin Level 3.7 gm/dL (3.4-5.0); Albumin/Globulin Ratio 0.9 (1.1-1.8); Alkaline Phosphatase 81 U/L (46-116); Anion Gap 14.8 mEq/L (5-15); Aspartate Amino Transferase 8 U/L (15-37); Bilirubin,Total 0.5 mg/dL (0.2-1.0); Blood Urea Nitrogen 18 mg/dL (7-18); Carbon Dioxide 26 mmol/L (21.0-32.0); Chloride 102 mmol/L (98-107); Chol/HDL Ratio 4.1 (1-3.5); Cholesterol 180 mg/dL (140-200); Creatinine,Serum 0.99 mg/dL (0.55-1.02); Estimated Glomerular Filt Rate 60 ml/min (>60); Free T4 (Free Thyroxine) 1.11 ng/dl (0.76-1.46); GFR (African American) 73 ML/MIN (>60); Globulin 4.2 gm/dl (1.3-3.2); Glucose 142 mg/dL (74-106); HDL Cholesterol 44 mg/dL (29-89); LDL Cholesterol 90 mg/dL (0-130); Potassium 3.8 mmoL/L (3.5-5.1); Sodium 139 mmol/L (136-145); Thyroid Stimulating Hormone 1.46 uIU/ml (0.358-3.740); Total Protein,Serum 7.9 gm/dL (6.4-8.2); Triglycerides 230 mg/dL (30-200); VLDL Cholesterol 46 mg/dL (0-40)
[2019-05-13 21:13] LABS: Hemoglobin A1C 6.6 % (0.0-7.0)
[2019-05-15 08:22] LABS: Vitamin D 25 Hydroxy 10.1 ng/mL (30.0-100.0)
== END ==
PROVIDERS: Visit Provider Emergency Medicine
DX: E11.9 Type 2 diabetes mellitus without complications (principal); Z79.84 Long term (current) use of oral hypoglycemic drugs
CPT/HCPCS: 80053; 80061; 82652; 83036; 84439; 84443; 85025

== ENCOUNTER → 2019-05-14 14:09 | Outpatient (CLI) | payer MEDICAID, SELFPAY ==
[2019-05-16 15:03] LABS: Microalbumin, Urine 12.6 ug/mL (Not Estab.)
== END ==
PROVIDERS: Visit Provider Emergency Medicine
DX: E11.9 Type 2 diabetes mellitus without complications (principal); Z79.84 Long term (current) use of oral hypoglycemic drugs
CPT/HCPCS: 82043

== ENCOUNTER → 2019-06-13 08:52 | Outpatient (CLI) | payer MEDICAID, SELFPAY ==
--- NOTE | 2019-06-13 08:54 | MM_ITS ---
PROCEDURE: MM DIG SCREENING MAMM BI W/CAD CLINICAL INDICATION: Routine Screening Mammogram There is no personal or family history of breast cancer COMPARISON: DMDBAV DIG MAMM-DX KAREN ADD VIEWS from 09/09/2013 DMDB DIG MAMM-DX KAREN from 02/06/2014 DMSB DIG MAMM-SCREEN KAREN from 02/08/2015 TECHNIQUE: Standard CC and MLO images were obtained. R2 CAD reviewed. FINDINGS: The breasts are composed primarily of fat with minimal scattered fibroglandular densities in each breast. There is a stable nodular density lower central portion of the left breast. There is no suspicious lesion in the suspicious microcalcifications. IMPRESSION: Fatty type breast parenchyma with no suspicious lesion seen BI-RAD Category: 2 Benign Finding(s) FOLLOW-UP: 1YR 1 Year Follow-up (A letter has been sent to the patient regarding results of the study.) Dictated by: Dr. Dashawn Nguyễn MD 06/14/2019 14:47 Signed by: <Electronically signed by Dr. Dashawn Nguyễn MD in [place]> 06/14/2019 14:47
== END ==
PROVIDERS: PCP Emergency Medicine; Visit Provider Emergency Medicine
DX: Z12.31 Encounter for screening mammogram for malignant neoplasm of breast (principal)
CPT/HCPCS: 77067

== ENCOUNTER → 2019-06-26 09:05 | Outpatient (CLI) | payer MEDICAID, SELFPAY | PROVIDERS: PCP Emergency Medicine; Visit Provider Emergency Medicine | DX: Z71.3 Dietary counseling and surveillance (principal); E11.9 Type 2 diabetes mellitus without complications | CPT/HCPCS: 97802 ==

== ENCOUNTER → 2019-08-15 14:15 | Outpatient (CLI) | payer OTHER, SELFPAY ==
--- NOTE | 2019-08-15 14:28 | MR_ITS ---
PROCEDURE: MR LUMBAR SPINE WO CON CLINICAL INDICATION: back pain Low back pain, bilateral leg pain with tingling COMPARISON: SPLUMBWO CT lumbar spine wo con from 11/16/2018 TECHNIQUE: Standard multiplanar multiecho sequences are performed without contrast. 3-D MIP and myelographic images are also rendered and reviewed FINDINGS: Normal alignment. The spinal cord ends at the T11-T12 region. T10-T11: Degenerative disc disease. Moderate right-sided facet and ligamentum hypertrophy with some mild impingement upon the posterior lateral aspect of the cord on the right. This is incompletely imaged and may be better evaluated with thoracic spine MRI if clinically desired T11-T12: Axial images suggest a minimal left paracentral disc protrusion without impingement. There is motion artifact which obscures fine detail. T12-L1: Mild degenerative changes L1-L2: Unremarkable. L2-L3: Unremarkable L3-L4: Unremarkable L4-5: Mild concentric bulging disc along with facet and ligamentum hypertrophy. This results in moderate right lateral recess and foraminal narrowing and mild left lateral recess and foraminal narrowing. L5-S1: Facet and ligamentum hypertrophy with mild foraminal narrowing. IMPRESSION: 1. T10-T11: Degenerative disc disease. Moderate right-sided facet and ligamentum hypertrophy with some mild impingement upon the posterior lateral aspect of the cord on the right. This is incompletely imaged and may be better evaluated with thoracic spine MRI if clinically desired 2. L4-5: Mild concentric bulging disc along with facet and ligamentum hypertrophy. This results in moderate right lateral recess and foraminal narrowing and mild left lateral recess and foraminal narrowing. 3. L5-S1: Facet and ligamentum hypertrophy with mild foraminal narrowing. 4. No herniated disc or canal stenosis Dictated by: Bubba Black MD 08/16/2019 11:24 Electronically signed by Bubba Black MD in [place] 08/16/2019 11:24
== END ==
PROVIDERS: PCP Emergency Medicine; Visit Provider Emergency Medicine
DX: M54.9 Dorsalgia, unspecified (principal)
CPT/HCPCS: 72148; 76376

== ENCOUNTER → 2019-09-01 09:48 | Outpatient (CLI) | payer OTHER, SELFPAY ==
--- NOTE | 2019-09-01 09:51 | XR_ITS ---
PROCEDURE: XR FOOT WT BEARING LT 3V CLINICAL INDICATION: pain Bilateral foot pain, falling arches COMPARISON: FTL3 FOOT-LT-3 VIEWS from 06/30/2014 FTR3 FOOT-RT-3 VIEWS from 08/17/2016 FTL3 FOOT-LT-3 VIEWS from 09/03/2017 FTR3 FOOT-RT-3 VIEWS from 09/03/2017 FINDINGS: No fracture or dislocation. No lytic or blastic change. There is normal mineralization. There are osteoarthritic changes at the 1st metatarsophalangeal joint. This is somewhat worse than when compared to the previous exam. Type 1 os naviculare. There is pes planus. There is a small calcaneal spur. Prominent bony spurring is present long the dorsal distal aspect of the 1st metatarsal. 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
--- NOTE | 2019-09-01 09:51 | XR_ITS ---
PROCEDURE: XR FOOT WT BEARING RT 3V CLINICAL INDICATION: pain Pain, falling arches COMPARISON: FTL3 FOOT-LT-3 VIEWS from 06/30/2014 FTR3 FOOT-RT-3 VIEWS from 08/17/2016 FTL3 FOOT-LT-3 VIEWS from 09/03/2017 FTR3 FOOT-RT-3 VIEWS from 09/03/2017 FINDINGS: No fracture or dislocation. No lytic or blastic change. There is normal mineralization. Mild osteoarthritis of the 1st MTP joint and the talonavicular joint as well as the metatarsal tarsal junction and the anterior aspect of the tibial talar joint. Borderline the the pes planus. Other findings:None. IMPRESSION: Mild osteoarthritis 1st MTP joint with borderline pes planus Dictated by: Bubba Black MD 09/01/2019 11:56 Electronically signed by Bubba Black MD in [place] 09/01/2019 11:56
== END ==
PROVIDERS: PCP Emergency Medicine; Visit Provider Podiatrist
DX: M79.672 Pain in left foot (principal); M79.671 Pain in right foot
CPT/HCPCS: 73630

== ENCOUNTER 2019-09-02 15:30 | Outpatient (RCR) | payer OTHER, SELFPAY | END 2019-09-02 15:35 | disposition home or self-care (01) | LOC: PT 15:30 | PROVIDERS: Visit Provider Emergency Medicine | DX: M54.9 Dorsalgia, unspecified (principal) | CPT/HCPCS: 97010; 97014; 97033; 97035; 97110; 97163; G0283 ==

== ENCOUNTER → 2019-10-27 09:56 | Outpatient (CLI) | payer OTHER, SELFPAY ==
[2019-10-27 11:24] LABS: Thyroid Stimulating Hormone 2.04 uIU/ml (0.358-3.740)
[2019-10-28 08:33] LABS: Iron 39 ug/dL (27-159); UIBC 321 ug/dL (131-425)
[2019-10-28 16:10] LABS: FSH 5.6 mIU/mL (.); Iron Saturation 11 % (15-55); Progesterone 6.8 ng/mL (.)
[2019-10-28 16:11] LABS: Vitamin B12 508 pg/mL (232-1245)
[2019-10-30 08:14] LABS: Testosterone, Total, LC/MS 30.6 ng/dL (.)
[2019-10-31 06:26] LABS: Estrogen 172 pg/mL (.)
== END ==
PROVIDERS: Visit Provider Nurse Practitioner Psychiatric/Mental Health
DX: Z00.00 Encounter for general adult medical examination without abnormal findings (principal); R53.83 Other fatigue; F43.10 Post-traumatic stress disorder, unspecified; F41.1 Generalized anxiety disorder
CPT/HCPCS: 36415; 82607; 82652; 82672; 83001; 83540; 83550; 84144; 84403; 84443

== ENCOUNTER → 2019-12-12 17:05 | Outpatient (CLI) | payer OTHER, SELFPAY ==
[2019-12-12 17:44] LABS: Basophils % 0.4 % (0.1-2.0); Eosinophils # 0.1 K/mm3 (0.0-0.4); Hematocrit 37.1 % (37.0-47.0); Hemoglobin 11.6 g/dL (12.2-16.2); Lymphocytes # 2.2 K/mm3 (0.7-4.5); Lymphocytes % 25.8 % (10-50); Mean Corpuscular HGB Conc 31.3 g/dL (31.8-35.4); Mean Corpuscular Hemoglobin 24.2 pg (27.0-31.2); Mean Corpuscular Volume 77.4 fl (81-99); Mean Platelet Volume 8.5 fl (7.4-10.4); Monocytes # 0.5 K/mm3 (0.1-1.0); Monocytes % 5.7 % (1.7-9.3); Neutrophils # 5.8 K/mm3 (1.8-7.8); Platelet Count 416 K/mm3 (142-424); Red Cell Distribution Width 14.3 % (11.5-17.5); White Blood Count 8.7 K/mm3 (4.8-10.8)
[2019-12-12 18:18] LABS: Chloride 101 mmol/L (98-107); Potassium 4.2 mmoL/L (3.5-5.1); Sodium 140 mmol/L (136-145)
[2019-12-12 18:20] LABS: Alanine Aminotransferase 17 U/L (12-78); Alkaline Phosphatase 82 U/L (38-126); Aspartate Amino Transferase 23 U/L (14-36); Bilirubin,Total 0.2 mg/dl (0.2-1.3); Blood Urea Nitrogen 19 mg/dl (7-17); Estimated Glomerular Filt Rate 67 ml/min (>60); GFR (African American) 82 ML/MIN (>60)
[2019-12-12 18:21] LABS: Albumin/Globulin Ratio 1.2 (1.1-1.8); Anion Gap 15.2 mEq/L (5-15); Calcium 9.5 mg/dl (8.4-10.2); Carbon Dioxide 28 mmol/L (22.0-30.0); Chol/HDL Ratio 3.5 (1-3.5); Cholesterol 199 mg/dl (140-200); Globulin 3.3 g/dL (1.3-3.2); Glucose 94 mg/dl (74-100); HDL Cholesterol 57 mg/dl (40-60); Total Protein,Serum 7.3 g/dl (6.3-8.2); Triglycerides 268 mg/dl (30-150); VLDL Cholesterol 54 mg/dL (0-40)
[2019-12-12 18:32] LABS: Direct LDL Cholesterol 101.83 mg/dL (100-129)
[2019-12-12 18:37] LABS: Free T4 (Free Thyroxine) 0.95 ng/dl (0.78-2.19)
[2019-12-12 18:51] LABS: Thyroid Stimulating Hormone 2.74 uIU/mL (0.465-4.68)
[2019-12-12 20:05] LABS: Hemoglobin A1C 6.5 % (4.0-6.0)
[2019-12-14 07:07] LABS: Creatinine, Urine 140.7 mg/dL (Not Estab.); Microalbumin, Urine 4.1 ug/mL (Not Estab.)
[2019-12-16 08:03] LABS: Vitamin D 25 Hydroxy 34.5 ng/mL (30.0-100.0)
== END ==
PROVIDERS: Visit Provider Emergency Medicine
DX: E11.9 Type 2 diabetes mellitus without complications (principal); Z79.84 Long term (current) use of oral hypoglycemic drugs
CPT/HCPCS: 80053; 80061; 82043; 82570; 82652; 83036; 84439; 84443; 85025

== ENCOUNTER → 2020-01-04 13:55 | Outpatient (CLI) | payer OTHER, SELFPAY | PROVIDERS: PCP Emergency Medicine; Visit Provider Emergency Medicine | DX: G47.33 Obstructive sleep apnea (adult) (pediatric) (principal); R06.83 Snoring | CPT/HCPCS: 95806 ==

== ENCOUNTER → 2020-01-05 12:15 | Outpatient (CLI) | payer OTHER, SELFPAY ==
--- NOTE | 2020-01-05 12:24 | XR_ITS ---
PROCEDURE: XR FOOT WT BEARING LT 3V CLINICAL INDICATION: pain COMPARISON: FTL3 FOOT-LT-3 VIEWS from 09/03/2017 FTR3 FOOT-RT-3 VIEWS from 09/03/2017 XR FOOT WT BEARING LT 3V from 09/01/2019 XR FOOT WT BEARING RT 3V from 09/01/2019 FINDINGS: Moderate osteoarthritic changes are present at the 1st metatarsophalangeal joint with bony hypertrophy at the distal aspect of the 1st metatarsal with a prominent dorsal spur. Mild osteoarthritic changes are present also at the talonavicular and navicular cuneiform junction dorsally. Bony hypertrophy also noted at the anterior distal tibia Borderline pes planus. There is a type 1 os naviculare Other findings:None. IMPRESSION: Osteoarthritic change with borderline pes planus. No change with no acute finding Dictated by: Bubba Black MD 01/05/2020 14:52 Electronically signed by Bubba Black MD in [place] 01/05/2020 14:52
--- NOTE | 2020-01-05 12:24 | XR_ITS ---
PROCEDURE: XR FOOT WT BEARING RT 3V CLINICAL INDICATION: pain Right foot pain COMPARISON: FTL3 FOOT-LT-3 VIEWS from 09/03/2017 FTR3 FOOT-RT-3 VIEWS from 09/03/2017 XR FOOT WT BEARING LT 3V from 09/01/2019 XR FOOT WT BEARING RT 3V from 09/01/2019 FINDINGS: No fracture or dislocation. No lytic or blastic change. There is normal mineralization. Mild osteoarthritic changes are present at the 1st metatarsophalangeal joint with minimal spurring at the talonavicular and navicular cuneiform junction dorsally. Borderline pes planus. Other findings:None. IMPRESSION: No change in the osteoarthritic change with borderline pes planus Dictated by: Bubba Black MD 01/05/2020 14:50 Electronically signed by Bubba Black MD in [place] 01/05/2020 14:50
== END ==
PROVIDERS: PCP Emergency Medicine; Visit Provider Podiatrist
DX: M20.5X2 Other deformities of toe(s) (acquired), left foot (principal); M21.41 Flat foot [pes planus] (acquired), right foot; M76.821 Posterior tibial tendinitis, right leg; M76.822 Posterior tibial tendinitis, left leg
CPT/HCPCS: 73630

== ENCOUNTER → 2020-01-27 12:12 | Outpatient (CLI) | payer OTHER, SELFPAY | PROVIDERS: PCP Emergency Medicine; Visit Provider Physician Assistant | DX: R07.9 Chest pain, unspecified (principal); R06.00 Dyspnea, unspecified; I49.9 Cardiac arrhythmia, unspecified; I10 Essential (primary) hypertension; E11.69 Type 2 diabetes mellitus with other specified complication; Z79.84 Long term (current) use of oral hypoglycemic drugs; Z87.891 Personal history of nicotine dependence | CPT/HCPCS: 93225; 93226 ==

== ENCOUNTER → 2020-02-03 09:39 | Outpatient (CLI) | payer OTHER, SELFPAY ==
--- NOTE | 2020-02-03 09:39 | CA_ITS ---
APPROVED REPORT EXAM: Comprehensive 2D, Doppler, and color-flow Echocardiogram Construction Accountant: Shira Menjivar CRT Ht: 5 ft 2 in Wt: 208lbs BSA: 1.94 BP: 134/89 mmHg Indications: Chest Pain, Shortness of Breath, Diabetes, Hyperlipidemia, Hypertension/HDD, arrhythmia on sleep study, gerd 2D Dimensions LVOT 1.88 cm (M/F) 1.5-2.5 M-Mode Dimensions RVDd 1.39 cm (0.9-2.6) LVDd 3.93 cm (3.5-5.7) LVDs 2.74 cm (3.5-5.7) IVSd 2.38 cm (0.6-1.1) PWd 0.72 cm (0.6-1.1) EF (Teich) 58.30% FS 30.30% EDV (Teich) 67.10 mL ESV (Teich) 28.00 mL LV Diastology E/A Ratio 1.48 Mitral Valve MV A Velocity 70.00 (40-130 cm/s) Left Ventricle Left atrium is mildly enlarged, left ventricle is normal size, mild qualitative concentric left ventricular hypertrophy, visually estimated ejection fraction 55% with no regional wall motion abnormality. Grade 1 diastolic dysfunction seen without tissue Doppler evidence of raise left atrial pressure. Right Ventricle Right atrium right ventricle mildly enlarged with normal contractility. Aortic Valve Aortic valve is minimally thickened and fibrosed, there is no aortic stenosis or aortic insufficiency. Mitral Valve Mitral valve is grossly normal, there is mild mitral regurgitation. Tricuspid Valve Tricuspid valve is grossly normal, there is mild tricuspid regurgitation, tricuspid regurgitation jet velocity is inadequate for calculation of the right ventricular systolic pressure. Pulmonic Valve Pulmonic valve is minimally fibrosed, there is mild pulmonic insufficiency, there is no pulmonic stenosis. Great Vessels Aortic root is normal size. Pericardium No significant pericardial effusion noted. Conclusion 1. Mild mitral enlargement, normal left ventricular size, mild concentric left ventricular hypertrophy, visually estimated ejection fraction 55% with no regional wall motion abnormality, grade 1 diastolic dysfunction seen without tissue Doppler evidence of raise left atrial pressure. 2. Mildly enlarged right ventricle with normal contractility. 3. Mild mitral and tricuspid regurgitation. 4. No significant pericardial effusion noted. Electronically signed by : Tanvir Perez, 02/03/2020 17:42:04
== END ==
PROVIDERS: PCP Emergency Medicine; Visit Provider Nurse Practitioner Family
DX: R07.9 Chest pain, unspecified (principal); R06.00 Dyspnea, unspecified; I49.9 Cardiac arrhythmia, unspecified; E11.69 Type 2 diabetes mellitus with other specified complication; I10 Essential (primary) hypertension; Z87.891 Personal history of nicotine dependence
CPT/HCPCS: 93306

== ENCOUNTER → 2020-02-09 11:40 | Outpatient (CLI) | payer OTHER, SELFPAY ==
[2020-02-09 13:39] LABS: Ferritin 9.02 ng/ml (6.24-137)
== END ==
PROVIDERS: Visit Provider Specialist
DX: E83.10 Disorder of iron metabolism, unspecified (principal); G25.81 Restless legs syndrome
CPT/HCPCS: 36415; 82728

== ENCOUNTER 2020-02-09 14:29 | Emergency (ER) | payer OTHER, SELFPAY ==
[2020-02-09 14:33] VITALS: BP 164/107; PULSE 101; RESP 18; TEMP 36.9; O2SAT 95; BMI 37.3
--- NOTE | 2020-02-09 14:41 | XR_ITS ---
PROCEDURE: XR CHEST PORTABLE CLINICAL HISTORY: cough/respiratory symptoms COMPARISON: AGCHEST CT angio chest from 03/14/2018 CXR2V XR chest 2V from 03/14/2018 CXR1VP XR chest portable from 11/16/2018 XR CHEST 2V from 06/03/2019 FINDINGS: The cardiomediastinal silhouette and pulmonary vascularity are within normal limits. Patchy density is present in the left lower lobe and retrocardiac region which could be due to an area of atelectasis or infiltrate. Hiatal hernia is noted. The remaining lungs are clear. No acute bony abnormalities. IMPRESSION: Left lower lobe atelectasis or infiltrate. Dictated by: Bubba Black MD 02/09/2020 15:01 Electronically signed by Bubba Black MD in [place] 02/09/2020 15:01
--- NOTE | 2020-02-09 14:46 | HMH.COUGH ---
Cough Clinic HPI - History of Present Illness Complaint:: Cough HPI:: She presents with a 2 to 3-day history of sore throat and cough which is occasionally productive of white-colored sputum. No fever. She has had some mild nasal congestion and postnasal drainage. She does note some mild shortness of breath which is about baseline for her. States she feels cold but no arlene chills. She had an episode of vomiting this morning. She does smoke. She works at [employer]. Home Medications: Home Medications Medication Instructions Recorded Confirmed Type atorvastatin 40 mg tablet 40 mg PO DAILY 10/25/17 02/09/20 History carvedilol 25 mg tablet 25 mg PO BID 10/25/17 02/09/20 History Potassium Chloride [Klor-con 20 20 meq PO DAILY 03/14/18 02/09/20 History mEq tablet] hydrochlorothiazide 25 mg tablet 25 mg PO DAILY 05/13/19 02/09/20 History metformin 1,000 mg tablet 1,000 mg PO BID 05/13/19 02/09/20 History Methocarbamol [Robaxin 500mg Tab] 500 mg PO BID 06/03/19 02/09/20 History ergocalciferol (vitamin D2) 1,250 50,000 unit PO QWEEK #12 cap 08/13/19 02/09/20 Rx mcg (50,000 unit) capsule diclofenac sodium 1 % topical gel 4 g TOPICAL QID #30 g 09/01/19 02/09/20 Rx linaclotide 145 mcg capsule 145 mcg PO DAILY #30 cap 12/09/19 02/09/20 Rx lisinopril 10 mg tablet 10 mg PO DAILY #90 tab 12/15/19 02/09/20 Rx cetirizine 10 mg tablet 10 mg PO DAILY #90 tab 01/06/20 02/09/20 Rx cholecalciferol (vitamin D3) 25 1,000 unit PO DAILY #90 cap 01/07/20 02/09/20 Rx mcg (1,000 unit) capsule omeprazole 20 mg capsule,delayed 20 mg PO DAILY #90 cap 01/07/20 02/09/20 Rx release trazodone 50 mg tablet 50 mg PO QHS PRN #30 tab 01/19/20 02/09/20 Rx cyclobenzaprine 10 mg tablet 10 mg PO HS #90 tab 01/22/20 02/09/20 Rx oxybutynin chloride 10 mg 10 mg PO DAILY tab 01/27/20 02/09/20 History tablet,extended release 24 hr ropinirole 1 mg tablet 1 mg PO QHS tab 01/27/20 02/09/20 History Aspirin [Low Dose Aspirin EC] 81 mg PO DAILY 02/09/20 02/09/20 History Diclofenac Sodium [Diclofenac 75mg 75 mg PO BID 02/09/20 02/09/20 History Tab] Gabapentin [Gabapentin 300mg Cap] 300 mg PO TID 02/09/20 02/09/20 History Phentermine HCl 37.5 mg PO DAILY 02/09/20 02/09/20 History Quetiapine Fumarate 200 mg PO QHS 02/09/20 02/09/20 History Sertraline HCl [Zoloft] 100 mg PO DAILY 02/09/20 02/09/20 History cefUROXime axetiL [Ceftin 500mg 500 mg PO BID #20 tab 02/09/20 Rx Tab (GEQ)] lansoprazole 30 mg capsule,delayed 30 mg PO DAILY cap 02/09/20 02/09/20 History release Allergies/Adverse Reactions: Allergies Allergy/AdvReac Type Severity Reaction Status Date / Time acetaminophen [From ULTRACET] Allergy Unknown Verified 02/09/20 10:33 tramadol [TRAMADOL] Allergy Unknown I-ITCHING Verified 02/09/20 10:33 Cough Clinic Triage - Symptoms Fever History: No Chills: Yes Myalgia: Yes Nasal Drainage: Yes Sore Throat: No Productive Cough: Yes Non-productive Cough: No Ear or Sinus Pain: No Joint Pain: No Chest Pain: Yes Rash: No Shortness of Breath: Yes Nausea or Vomitting: Yes Headache: Yes Abdominal Pain: No Diarrhea: Yes - Exposure History Foreign Travel: No Direct Contact with COVID-19 Patient: No - Risk Factors Greater than 60 Years Old: No COPD: No Diabetes: Yes Heart Disease: No Home Oxygen Use: No Chronic Renal Disease: No Chronic Liver Disease: No Neurologic/Neurodevelopmental/intellectual disability: Yes (ANXIETY) Other Chronic Diseases: No If Female, currently : No Current Smoker: No Former Smoker: Yes Cough Clinic History Medical History: Reports:: Diabetes Mellitus Type 2, Gastroesophageal Reflux Disease(GERD), Hyperlipidemia, Hypertension Denies:: Cancer, Diabetes Mellitus Type 1, Internal Pacemaker, MRSA, Seizures Other Medical History: Reports: Arthritis. Denies: Blood Transfusion Reaction, Hypothyroidism, Thyroid Disease Other Surgeries: Yes: No Previous Surgery, Cholecystectomy, Colonoscopy, Hyster
[2020-02-09 14:51] LABS: Hematocrit 35.1 % (37.0-47.0); Hemoglobin 11.6 g/dL (12.2-16.2); Mean Corpuscular HGB Conc 33.1 g/dL (31.8-35.4); Mean Corpuscular Hemoglobin 24.3 pg (27.0-31.2); Mean Corpuscular Volume 73.3 fl (81-99); Red Blood Count 4.79 M/mm3 (4.20-5.40); Red Cell Distribution Width 16.2 % (11.5-17.5); White Blood Count 12.9 K/mm3 (4.8-10.8)
[2020-02-09 14:52] LABS: Basophils % 0.2 % (0.1-2.0); Eosinophils # 0.1 K/mm3 (0.0-0.4); Eosinophils % 0.7 % (0.1-12.0); Mean Platelet Volume 7.3 fl (7.4-10.4); Monocytes # 0.7 K/mm3 (0.1-1.0); Monocytes % 5.2 % (1.7-9.3); Neutrophils % 77.9 % (37.0-80.0); Platelet Count 358 K/mm3 (142-424)
[2020-02-09 15:30] VITALS: BP 164/107; PULSE 101; RESP 18; TEMP 36.9; O2SAT 95
== END 2020-02-09 15:31 | disposition home or self-care (01) ==
PROVIDERS: Emergency Provider Family Medicine; PCP Emergency Medicine
DX: J20.9 Acute bronchitis, unspecified (principal); K21.9 Gastro-esophageal reflux disease without esophagitis; E78.5 Hyperlipidemia, unspecified; I10 Essential (primary) hypertension; E11.9 Type 2 diabetes mellitus without complications; Z79.899 Other long term (current) drug therapy; Z90.49 Acquired absence of other specified parts of digestive tract
CPT/HCPCS: 36415; 71045; 85025; 99201; 99213

== ENCOUNTER → 2020-02-17 10:35 | Outpatient (CLI) | payer OTHER, SELFPAY ==
[2020-02-18 04:18] LABS: Iron 41 ug/dL (27-159); UIBC 346 ug/dL (131-425)
[2020-02-20 09:16] LABS: Iron Saturation 11 % (15-55)
== END ==
PROVIDERS: Visit Provider Nurse Practitioner Family
DX: D50.9 Iron deficiency anemia, unspecified (principal)
CPT/HCPCS: 36415; 83540; 83550

== ENCOUNTER → 2020-03-15 10:06 | Outpatient (CLI) | payer OTHER, SELFPAY ==
[2020-03-15 11:37] LABS: Coronavirus 19 IgG Antibody Negative (Negative); Coronavirus 19 IgM Antibody Negative (Negative)
== END ==
PROVIDERS: Visit Provider Specialist
DX: Z03.818 Encounter for observation for suspected exposure to other biological agents ruled out (principal)
CPT/HCPCS: 36415; 86328

== ENCOUNTER → 2020-03-16 20:21 | Outpatient (CLI) | payer OTHER, SELFPAY | PROVIDERS: PCP Emergency Medicine; Visit Provider Specialist | DX: G47.30 Sleep apnea, unspecified (principal); R06.83 Snoring; E66.9 Obesity, unspecified; G25.81 Restless legs syndrome | CPT/HCPCS: 95810 ==

== ENCOUNTER 2020-05-24 19:33 | Emergency (ER) | payer OTHER, SELFPAY ==
[2020-05-24 19:46] VITALS: BMI 35.5
--- NOTE | 2020-05-24 19:50 | XR_ITS ---
PROCEDURE: XR KNEE RT 3V CLINICAL INDICATION: INJURY And a COMPARISON: KNEE3R KNEE-3 VIEWS-RT from 06/01/2013 KNEE3L KNEE-3 VIEWS-LT from 11/14/2014 KNEE3L KNEE-3 VIEWS-LT from 10/11/2017 FINDINGS: No fracture or dislocation. No lytic or blastic change. There is normal mineralization. Mild osteoarthritic change of the medial compartment and patellofemoral joint. Small calcific density in the intercondylar region of the distal femur suggesting a loose body. Other findings:None. IMPRESSION: No acute finding. Degenerative changes with possible loose body This exam was originally interpreted on 05/24/2020 and has been resubmitted for 2nd signature on 06/28/2020 Dictated by: Bubba Black MD 06/29/2020 05:01 Bubba Black MD in [place] 06/29/2020 05:01
[2020-05-24 20:16] VITALS: BP 131/104; PULSE 101; RESP 16; TEMP 36.5; O2SAT 97; BMI 35.5
[2020-05-24 20:27] VITALS: BP 131/104; PULSE 101; RESP 16; TEMP 36.5; O2SAT 97
--- NOTE | 2020-05-24 20:30 | HMH.EDUTC ---
[facility] [place] Disposition Clinical Impression: Contusion of right knee Qualifiers: Encounter type: initial encounter Qualified Code(s): S80.01XA - Contusion of right knee, initial encounter Disposition: Home, Self-Care Condition on Discharge: Good Instructions: How to Use Crutches, DI for Knee Pain, How to Use a Knee Immobilizer Additional Instructions: Rest the extremity, apply ice for 15 minutes as tolerated three or four times per day, Elevate the extremity as tolerated while you are resting. Take ibuprofen for pain. I sent in a prescription to your pharmacy. Follow up with Dr. Rojas (orthopedics). I put in a referral but you need to call her office and schedule an appointment. Follow up with your regular doctor. GO TO THE ER FOR ANY WORSENING SYMPTOMS Prescriptions: Ibuprofen [Ibuprofen 600mg Tablet] 600 mg PO Q6HP PRN #30 tab PRN Reason: Mild Pain Transmission Status: Received by Clinic Pharmacy Referrals: Richard Pratt MD [Primary Care Provider] - Columba Rojas MD [Physician] - Time of Disposition: 20:34 Medical Decision Making - Medical Records Medical records reviewed: No: I reviewed the patient's medical records. - Wyatt Inquiry Pt receiving controlled substance: No Vital Signs: 05/24/20 20:16 05/24/20 20:27 Temperature 97.7 F 97.7 F Temperature Source Oral Pulse Rate 101 H Pulse Rate [Right Brachial] 101 H Respiratory Rate 16 16 Blood Pressure 131/104 H Blood Pressure [Right Arm] 131/104 H Blood Pressure Mean [Right Arm] 113 Blood Pressure Source [Right Arm] Automatic Cuff Blood Pressure Position [Right Arm] Sitting 02 Sat by Pulse Oximetry 97 Oxygen Delivery Method Room Air Orders (Tests/Meds): ORDERS Category Date Time Status Knee XR right 3 views [XR knee RT 3V] Stat Exams 05/24/20 19:50 Taken - Radiology Data #1 Image(s): Knee Image Reviewed: Yes I reviewed the patient's radiology image Preliminary Findings: No Fracture Seen [facility] [place] HPI - General Stated complaint: ao 0803 @ 1300 injured R knee Time Seen by Provider: 05/24/20 20:20 Mode of Arrival: Ambulatory Source of Information: Patient Limitations: No Limitations Description of Symptoms (Recalled from Triage Doc. by RN): PATIENT C/O RIGHT KNEE PAIN AFTER FALLING DOWN 4 STEPS. DENIES HITTING HEAD OR ANY OTHER INJURY HEENT Symptoms (Recalled from RN notes): No Resp Symptoms (Recalled from RN notes): No Skin Symptoms (Recalled from RN notes): No MS Symptoms (Recalled from RN notes): Yes Functional Status (Recalled from RN notes): WNL - History of Present Illness Provider Complaint: She states that earlier today she was walking down some stairs when she missed the bottom stair and fell forward. She came down on her right knee. Since then she has had pain of the knee when she bears weight on it. - Related Data Home Medications Medication Instructions Recorded Confirmed atorvastatin 40 mg tablet 40 mg PO DAILY 10/25/17 05/07/20 carvedilol 25 mg tablet 25 mg PO BID 10/25/17 05/07/20 Potassium Chloride [Klor-con 20 20 meq PO DAILY 03/14/18 05/07/20 mEq tablet] metformin 1,000 mg tablet 1,000 mg PO BID 05/13/19 05/07/20 Methocarbamol [Robaxin 500mg Tab] 500 mg PO BID 06/03/19 05/07/20 ropinirole 1 mg tablet 1 mg PO QHS tab 01/27/20 05/07/20 Diclofenac Sodium [Diclofenac 75mg 75 mg PO BID 02/09/20 05/07/20 Tab] lansoprazole 30 mg capsule,delayed 30 mg PO DAILY cap 02/09/20 05/07/20 release Previous Rx's Medication Instructions Recorded ergocalciferol (vitamin D2) 1,250 50,000 unit PO QWEEK #12 cap 08/13/19 mcg (50,000 unit) capsule cholecalciferol (vitamin D3) 25 1,000 unit PO DAILY #90 cap 01/07/20 mcg (1,000 unit) capsule oxybutynin chloride 10 mg 10 mg PO DAILY #90 tab 02/18/20 tablet,extended release 24 hr hydrochlorothiazide 25 mg tablet 25 mg PO DAILY #90 tab 02/19/20 diclofenac sodium 1 % topical gel 4 g TOPICAL QID #30 g 03/02/20 urea 40 %
== END 2020-05-24 20:45 | disposition home or self-care (01) ==
PROVIDERS: Emergency Provider Nurse Practitioner Family; PCP Emergency Medicine
DX: S80.01XA Contusion of right knee, initial encounter (principal); W10.9XXA Fall (on) (from) unspecified stairs and steps, initial encounter; Y92.019 Unspecified place in single-family (private) house as the place of occurrence of the external cause; E78.5 Hyperlipidemia, unspecified; K21.9 Gastro-esophageal reflux disease without esophagitis; E11.9 Type 2 diabetes mellitus without complications; I10 Essential (primary) hypertension; F41.8 Other specified anxiety disorders; Z79.899 Other long term (current) drug therapy; Z87.891 Personal history of nicotine dependence; Z90.79 Acquired absence of other genital organ(s); Z90.49 Acquired absence of other specified parts of digestive tract
CPT/HCPCS: 29505; 73562; 99202

== ENCOUNTER → 2020-06-08 09:49 | Outpatient (CLI) | payer OTHER, SELFPAY ==
--- NOTE | 2020-06-08 09:56 | XR_ITS ---
PROCEDURE: XR KNEE RT 4V CLINICAL INDICATION: 4 views weight bearing COMPARISON: No exams were available for comparison FINDINGS: No fracture or dislocation. No lytic or blastic change. There is normal mineralization. There is mild joint space narrowing medially and there is mild spurring of the tibial spines. The patella is intact and I see no joint effusion. Other findings:None. IMPRESSION: Minor degenerative changes, no acute pathology noted Dictated by: Dr. Dashawn Nguyễn MD 06/08/2020 10:27 Dr. Dashawn Nguyễn MD in [place] 06/08/2020 10:27
== END ==
PROVIDERS: PCP Emergency Medicine; Visit Provider Orthopaedic Surgery
DX: M25.561 Pain in right knee (principal)
CPT/HCPCS: 73564

== ENCOUNTER → 2020-06-21 11:00 | Outpatient (POV) | payer OTHER, SELFPAY | PROVIDERS: Visit Provider Nurse Practitioner Family | DX: Z00.00 Encounter for general adult medical examination without abnormal findings (principal) ==

== ENCOUNTER 2020-06-23 14:00 | Outpatient (RCR) | payer OTHER, SELFPAY ==
--- NOTE | 2020-06-16 11:43 | HMH.PTOPEV ---
PT Outpatient Evaluation Rehab PT Outpatient Evaluation Start: 06/16/20 11:06 Freq: Status: Active Protocol: Document 06/16/20 11:32 GALOGENET (Rec: 06/16/20 11:43 GALOAUTUMNLANNY [id number]) Electronically Signed By Zeferino Berg, PT 06/16/20 11:32 Outpatient Therapy Subjective History Subjective History Patient is a 45 year old female presenting to outpatient PT with reports of acute R knee pain starting after a fall landing on R knee 2 weeks ago. Most recent imaging indicates mild degnerative changes. Referred for R knee contusion and possible meniscus tear. Comorbidities include elevated BMI, HTN, HL, diabetes, R foot surgery, cervical fusion and GERD. Chief Complaint Pain,Clicks,Gives out/Unstable Symptom Type Throb Symptoms Relieved By Rest/Positioning,Ice,OTC Meds Symptoms Aggravated By Standing,Physical Activity, Walking Prior Functional Limitations None Current Functional Limitations Housework,Standing,Squatting, Recreation Activity,Walking, Stairs,Balance Symptom Description Constant but Variable Level of pain today (0-10) 3 Pain scale - at its best (0-10) 2 Pain scale - at its worst (0-10) 8 Hip/Knee Eval Gait Observation General Gait Pattern Observation No Deviations/Normal Palpation Tenderness right Knee Palpation Finding Tenderness Knee Palpation Overall Comment M/L joint line 3/4 MMT Hip Flexion Strength Grade 4- Good- Hip Abduction Strength Grade 3+ Fair+ Hip Adduction Strength Grade 3+ Fair+ Hip Extension Strength Grade 3+ Fair+ Hip External Rotation Strength Grade 3+ Fair+ Hip Internal Rotation Strength Grade 3+ Fair+ Knee Extension Strength Grade 4- Good- Knee Flexion Strength Grade 4 Good ROM Hip ROM Reason Not Measured Within Functional Limits Knee ROM Reason Not Measured Within Functional Limits Special Tests Knee Anterior Drawer Test Negative Right Knee Anterior Elo Test Negative Right Knee Pivot Shift Test Negative Right Knee Valgus Stress Test Negative Right Knee Varus Stress Test Negative Right Knee Lei Test Negative Right Outpatient Therapy Assessment Impairments Problems/Impairmments Palpation Tenderness,Impaired Range of Motion,Impaired
== END 2020-06-23 14:57 | disposition home or self-care (01) ==
LOC: PT 14:00
PROVIDERS: PCP Emergency Medicine; Visit Provider Orthopaedic Surgery
DX: M25.561 Pain in right knee (principal); S80.01XA Contusion of right knee, initial encounter
CPT/HCPCS: 97010; 97014; 97033; 97035; 97163; G0283

== ENCOUNTER → 2020-07-29 12:09 | Outpatient (CLI) | payer OTHER, SELFPAY ==
[2020-07-29 14:16] LABS: Coronavirus 19 IgG Antibody Negative (Negative); Coronavirus 19 IgM Antibody Negative (Negative)
== END ==
PROVIDERS: Visit Provider Internal Medicine Gastroenterology
DX: Z01.89 Encounter for other specified special examinations (principal)
CPT/HCPCS: 36415; 86328

== ENCOUNTER 2020-07-30 12:11 | Day surgery (SDC) | payer OTHER, SELFPAY ==
[2020-07-22 15:11] VITALS: BMI 35.6
[2020-07-30 12:33] VITALS: BP 142/90; PULSE 64; RESP 18; TEMP 36.6; O2SAT 95
[2020-07-30 12:43] LABS: POC Glucose,Bedside 95 (70-110)
[2020-07-30 13:12] VITALS: O2SAT 98
--- NOTE | 2020-07-30 13:16 | P.PN_ITS ---
[facility] Anesthesia Checklist - Patient Identification Patient Identification: Arm Band - Structural Data Admitted From: Home Planned Operative Procedure/s: flexible sigmoidoscopy Consent for Planned Operative Procedure(s) Verified: Yes Verified Documents: Surgical Consent, History and Physical - NPO Status Verified Time NPO: 00:00 - Additional verifications Anesthesia Reactions: No Hx Blood Transfusions: No Blood Transfusion Reaction: No - Airway Assessment C-Spine Mobility Assessed: Yes (mp2) TMJ Mobility Assessed: Yes Dentition: Good Dentition - Neurological Assessment Level of Consciousness: Awake, Alert - Anesthesia Plan Anesthesia Risk discussed: Yes Anesthesia Plan: Verified ASA Class: III Anesthesia Type: MAC [facility] History I have reviewed the patient's past medical history: Yes Medical History: Reports:: Anxiety, Depression, Diabetes Mellitus Type 2, Gastroesophageal Reflux Disease(GERD), Hyperlipidemia, Hypertension Denies:: Cancer, Diabetes Mellitus Type 1, Internal Pacemaker, MRSA, Seizures *Have you ever received a pneumonia vaccine?: Yes *Have you received a flu vaccine this season?: Yes Other Medical History: Reports: Arthritis. Denies: Blood Transfusion Reaction, Hypothyroidism, Thyroid Disease Anesthesia experience/problems:: nac Other Surgeries: Yes: Cholecystectomy, Colonoscopy, Hysterectomy-Total, Hysterectomy-Partial, Tubal Ligation, Other. No: Pacemaker Amputation: No Fractures: No - *Social History Last grade of school completed: High school graduate Smoking Status: Never smoker Tobacco Type: cigarettes # Packs/Day (cigarettes): 0 #Yrs smoked (if former smoker): 12 Alcohol Intake: never Alcohol Intake Frequency:: other Substance Use Type: denies use *Occupational Status:: employed Housing: house Household Members: significant other *Travel in the last 8 weeks: None - Psychiatric History Pschychiatric History:: Reports:: Anxiety, Depression Family Hx:: Unable to obtain
--- NOTE | 2020-07-30 13:26 | HMH.PROC ---
[facility] Procedure Note Procedure Note:: Flexible Sigmoidoscopy Procedure Report: Sigmoidoscopy with hemorrhoid band ligation Endoscopist: René Spence II, MD Referring physician: Richard Pratt MD/Roseanne Boyer MD Date of Procedure: July 30, 2020 Equipment: Olympus 180 variable stiffness pediatric colonoscope Sedation: MAC sedation Indication: Mrs. Farfan is a 45-year-old female with moderate to marked rectal bleeding that occurs daily and has been going on for a long time. She has chronic constipation but doing very well with Linzess 145 mcg daily. She had a colonoscopy (Maicol Lunsford MD) in May 2015 which was reportedly normal to the cecum. The patient reports no significant abdominal pain or weight loss. She does get some bloating and cramps that preceded her bowel movement. She reports no family history of colon cancer. Procedure: Prior to the procedure, a history and physical exam was performed, and patient's medications and allergies were reviewed. The risks, benefits and alternatives of the sedation and procedure were discussed with the patient. All questions were answered and informed consent was obtained. The patient was brought to the procedure room. Patient identification and proposed procedure were verified by the physician and the nurse. The patient was placed in a left lateral decubitus position and the scope was passed under direct vision. Throughout the procedure, the patient's blood pressure, pulse, and oxygen saturations were monitored continuously. The colonoscopy was accomplished without difficulty. The patient tolerated the procedure well. Findings: On digital rectal examination there were external hemorrhoidal tags with some hemorrhoidal prolapse. The scope was then inserted through the anal canal to the rectum and advanced to 40 cm. Upon withdrawal, the sigmoid and rectum were normal. Upon retroflexion within the rectum there were grade 2-3 internal hemorrhoids. These were banded using 4 bands on 3 columns of hemorrhoids with excellent ligation effect. Impression: 1. Normal sigmoidoscopy to 40 cm 2. Grade 2-3 internal hemorrhoids status post band ligation x4 Plan: I would encourage continuation of Linzess. She will need to add bulk (FiberCon). We will discuss further treatment options.
[2020-07-30 13:36] VITALS: BP 96/62; PULSE 70; RESP 16; TEMP 36.4; O2SAT 93
[2020-07-30 13:46] VITALS: BP 94/64; PULSE 65; RESP 16; O2SAT 93
[2020-07-30 13:56] VITALS: BP 128/86; PULSE 73; RESP 16; O2SAT 97
[2020-07-30 14:06] VITALS: BP 135/96; PULSE 70; RESP 16; O2SAT 95
== END 2020-07-30 14:06 | disposition home or self-care (01) ==
LOC: OUTP 12:12
PROVIDERS: PCP Emergency Medicine; Visit Provider Internal Medicine Gastroenterology
PROC: 0DJD8ZZ Inspection of Lower Intestinal Tract, Via Natural or Artificial Opening Endoscopic (ICD-10-PCS; CPT 45330; principal; 2020-07-30 12:30)
DX: K64.1 Second degree hemorrhoids; K21.9 Gastro-esophageal reflux disease without esophagitis; E78.5 Hyperlipidemia, unspecified; I10 Essential (primary) hypertension; E11.9 Type 2 diabetes mellitus without complications; F41.9 Anxiety disorder, unspecified; F32.9 Major depressive disorder, single episode, unspecified; M19.90 Unspecified osteoarthritis, unspecified site; E03.9 Hypothyroidism, unspecified; Z90.49 Acquired absence of other specified parts of digestive tract; Z90.711 Acquired absence of uterus with remaining cervical stump; Z88.8 Allergy status to other drugs, medicaments and biological substances
CPT/HCPCS: 45350; 82962

== ENCOUNTER → 2020-10-06 14:26 | Outpatient (CLI) | payer OTHER, SELFPAY ==
[2020-10-06 16:12] LABS: Ferritin 10.3 ng/ml (6.24-137)
== END ==
PROVIDERS: Visit Provider Specialist
DX: E83.10 Disorder of iron metabolism, unspecified (principal)
CPT/HCPCS: 36415; 82728

== ENCOUNTER → 2020-11-13 11:41 | Outpatient (CLI) | payer OTHER, SELFPAY ==
[2020-11-13 13:33] LABS: Coronavirus 19 IgG Antibody Negative (Negative); Coronavirus 19 IgM Antibody Negative (Negative)
== END ==
PROVIDERS: Visit Provider Internal Medicine Gastroenterology
DX: Z01.812 Encounter for preprocedural laboratory examination (principal); Z20.822 Contact with and (suspected) exposure to COVID-19; Z13.810 Encounter for screening for upper gastrointestinal disorder; R13.10 Dysphagia, unspecified
CPT/HCPCS: 36415; 86328

== ENCOUNTER 2020-11-15 10:32 | Day surgery (SDC) | payer OTHER, SELFPAY ==
[2020-11-09 14:30] VITALS: BMI 35.3
[2020-11-15] VITALS (7 sets, daily range): BP systolic 139–161; BP diastolic 88–99; PULSE 70–82; RESP 16–18; TEMP 36.5–36.6; O2SAT 91–97
[2020-11-15 10:57] LABS: POC Glucose,Bedside 118 (70-110)
--- NOTE | 2020-11-15 11:09 | HMH.ANESCL ---
[facility] Anesthesia Checklist - Patient Identification Patient Identification: Arm Band - Structural Data Admitted From: Home Planned Operative Procedure/s: egd Consent for Planned Operative Procedure(s) Verified: Yes Verified Documents: Surgical Consent, History and Physical - NPO Status Verified Time NPO: 00:00 - Additional verifications Anesthesia Reactions: No Hx Blood Transfusions: No Blood Transfusion Reaction: No - Airway Assessment C-Spine Mobility Assessed: Yes (mp2) TMJ Mobility Assessed: Yes Dentition: Good Dentition - Neurological Assessment Level of Consciousness: Awake, Alert - Anesthesia Plan Anesthesia Risk discussed: Yes Anesthesia Plan: Verified ASA Class: III Anesthesia Type: MAC [facility] History I have reviewed the patient's past medical history: Yes Medical History: Reports:: Anxiety, Depression, Diabetes Mellitus Type 2, Gastroesophageal Reflux Disease(GERD), Hyperlipidemia, Hypertension Denies:: Cancer, Diabetes Mellitus Type 1, Internal Pacemaker, MRSA, Seizures *Have you ever received a pneumonia vaccine?: No *Have you received a flu vaccine this season?: No Other Medical History: Reports: Arthritis. Denies: Blood Transfusion Reaction, Hypothyroidism, Thyroid Disease Anesthesia experience/problems:: nac Laterality Cases: Right: Other Other Surgeries: Yes: Cholecystectomy, Colonoscopy, Hysterectomy-Total, Hysterectomy-Partial, Tubal Ligation, Other. No: Pacemaker Amputation: No Fractures: No - *Social History Last grade of school completed: High school graduate Smoking Status: Never smoker Tobacco Type: cigarettes # Packs/Day (cigarettes): 0 #Yrs smoked (if former smoker): 12 Alcohol Intake: never Alcohol Intake Frequency:: other Substance Use Type: denies use *Occupational Status:: employed Housing: house Household Members: significant other *Travel in the last 8 weeks: None - Psychiatric History Pschychiatric History:: Reports:: Anxiety, Depression Family Hx:: Hyperlipidemia, Hypertension, Diabetes
--- NOTE | 2020-11-15 11:16 | P.PCN_ITS ---
[facility] Procedure Note Procedure Note:: Upper Endoscopy Procedure Report: Esophagogastroduodenoscopy with cold biopsies Endoscopost: René Spence II, MD Referring Physician: Richard Pratt MD/Roseanne Boyer MD Date of Procedure: November 15, 2020 Equipment: Olympus GIF 180 standard upper endoscope Sedation: MAC sedation Indications: Mrs. Farfan is a 45-year-old female with chronic GERD. She is on omeprazole 40 mg by mouth daily. She does have moderate bloating and some early satiety. She does report heartburn and regurgitation. She reports no belching, nausea or emesis. She reports no epigastric or retrosternal pain. She does have chronic constipation and does take combined MiraLAX plus Metamucil. Her insurance would not cover Linzess. She reports no dysphagia or globus sensation. This is her first upper endoscopy. Procedure: Prior to the procedure, a history and physical exam was performed, and patient's medications and allergies were reviewed. The risks, benefits and alternatives of the sedation and procedure were discussed with the patient. All questions were answered and informed consent was obtained. The patient was brought to the procedure room. Patient identification and proposed procedure were verified by the physician and the nurse. The patient was placed in a left lateral decubitus position and the scope was passed under direct vision. Throughout the procedure, the patient's blood pressure, pulse, and oxygen saturations were monitored continuously. The upper GI endoscopy was accomplished without difficulty. The patient tolerated the procedure well. Findings: The scope was passed directly into the upper esophagus and advanced to the third portion of the duodenum. The post bulbar duodenum and duodenal bulb were normal with normal mucosa and conniventes. Cold biopsies were taken from the duodenum to rule out celiac disease. The scope was withdrawn through a normal duodenal bulb and pylorus into the stomach. There was bile reflux with moderate linear reactive gastropathy of the antrum and body of the stomach. Upon retroflexion there was a 2 to 3 cm hiatal hernia. 2 biopsies were taken in the antrum and along the lesser curvature for histology to rule out gastritis and/or H pylori. The scope was then withdrawn into the esophagus. There was a serrated Z-line with 1 single tongue of salmon-colored mucosa that was biopsied to rule out very short segment Gonzalez's esophagus. There was no evidence of reflux esophagitis, Schatzki's ring or strictures. There were tertiary co ntractions of mild esophageal dysmotility. The remainder of the esophageal mucosa was normal. Impression: 1. Nonerosive GERD with mild esophageal dysmotility and small 2 to 3 cm hiatal hernia 2. Bile reflux with linear reactive gastropathy Plan: I will follow-up the biopsies. We will discuss additional treatment options of the patient's chronic GERD. She does have some functional GERD but did not have complicated GERD (no reflux esophagitis or obvious Gonzalez's).
== END 2020-11-15 12:15 | disposition home or self-care (01) ==
LOC: OUTP 10:34
PROVIDERS: PCP Emergency Medicine; Visit Provider Internal Medicine Gastroenterology
PROC: 0DJ08ZZ Inspection of Upper Intestinal Tract, Via Natural or Artificial Opening Endoscopic (ICD-10-PCS; CPT 43235; principal; 2020-11-15 11:30)
DX: K21.9 Gastro-esophageal reflux disease without esophagitis (principal); K22.4 Dyskinesia of esophagus; K31.9 Disease of stomach and duodenum, unspecified; K44.9 Diaphragmatic hernia without obstruction or gangrene; E11.9 Type 2 diabetes mellitus without complications; I10 Essential (primary) hypertension; F41.9 Anxiety disorder, unspecified; F32.9 Major depressive disorder, single episode, unspecified; M19.90 Unspecified osteoarthritis, unspecified site; Z83.438 Family history of other disorder of lipoprotein metabolism and other lipidemia; Z82.49 Family history of ischemic heart disease and other diseases of the circulatory system; Z83.3 Family history of diabetes mellitus
CPT/HCPCS: 43239; 82962

== ENCOUNTER → 2020-11-18 14:26 | Outpatient (CLI) | payer OTHER, SELFPAY ==
--- NOTE | 2020-11-18 14:30 | XR_ITS ---
PROCEDURE: XR FOOT WT BEARING LT 3V CLINICAL INDICATION: pain COMPARISON: CR XR FOOT WT BEARING LT 3V from 09/01/2019 CR XR FOOT WT BEARING RT 3V from 09/01/2019 CR XR FOOT WT BEARING RT 3V from 01/05/2020 CR XR FOOT WT BEARING LT 3V from 01/05/2020 FINDINGS: No fracture or dislocation. No lytic or blastic change. There is normal mineralization. There are severe osteoarthritic changes at the 1st MTP joint. Bony spurs at the 1st MTP joint and distal 1st metatarsal. There is moderate pes planus. The osteoarthritis appears somewhat worse compared to the previous exam. Other findings:None. 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
--- NOTE | 2020-11-18 14:30 | XR_ITS ---
PROCEDURE: XR FOOT WT BEARING RT 3V CLINICAL INDICATION: pain COMPARISON: CR XR FOOT WT BEARING LT 3V from 09/01/2019 CR XR FOOT WT BEARING RT 3V from 09/01/2019 CR XR FOOT WT BEARING RT 3V from 01/05/2020 CR XR FOOT WT BEARING LT 3V from 01/05/2020 FINDINGS: No fracture or dislocation. No lytic or blastic change. There is normal mineralization. Mild osteoarthritic change 1st MTP joint with borderline pes planus not significantly changed. Other findings:None. IMPRESSION: No change mild osteoarthritis 1st MTP joint with pes planus Dictated by: Bubba Black MD 11/18/2020 18:15 Bubba Black MD in [place] 11/18/2020 18:15
== END ==
PROVIDERS: PCP Emergency Medicine; Visit Provider Podiatrist
DX: M79.672 Pain in left foot (principal); M79.671 Pain in right foot
CPT/HCPCS: 73630

== ENCOUNTER → 2020-11-24 18:07 | Outpatient (CLI) | payer OTHER, SELFPAY ==
[2020-11-24 19:25] LABS: Basophils % 0.4 % (0.1-2.0); Eosinophils % 0.5 % (0.1-12.0); Hematocrit 42.5 % (37.0-47.0); Hemoglobin 13.5 g/dL (12.2-16.2); Lymphocytes # 2.2 K/mm3 (0.7-4.5); Lymphocytes % 29.4 % (10-50); Mean Corpuscular HGB Conc 31.6 g/dL (31.8-35.4); Mean Corpuscular Hemoglobin 25.1 pg (27.0-31.2); Mean Corpuscular Volume 79.5 fl (81-99); Mean Platelet Volume 7.9 fl (7.4-10.4); Monocytes # 0.4 K/mm3 (0.1-1.0); Monocytes % 4.7 % (1.7-9.3); Neutrophils # 4.9 K/mm3 (1.8-7.8); Neutrophils % 64.9 % (37.0-80.0); Platelet Count 441 K/mm3 (142-424); Red Blood Count 5.35 M/mm3 (4.20-5.40); Red Cell Distribution Width 14.5 % (11.5-17.5); White Blood Count 7.5 K/mm3 (4.8-10.8)
[2020-11-24 19:40] LABS: Alanine Aminotransferase 15 U/L (12-78); Albumin Level 4.8 g/dl (3.5-5.0); Albumin/Globulin Ratio 1.1 (1.1-1.8); Alkaline Phosphatase 99 U/L (38-126); Anion Gap 10.2 mEq/L (5-15); Aspartate Amino Transferase 24 U/L (14-36); Bilirubin,Total 0.2 mg/dl (0.2-1.3); Blood Urea Nitrogen 15 mg/dl (7-17); Calcium 10.7 mg/dl (8.4-10.2); Carbon Dioxide 31 mmol/L (22.0-30.0); Chloride 100 mmol/L (98-107); Chol/HDL Ratio 4.1 (1-3.5); Cholesterol 236 mg/dl (140-200); Estimated Glomerular Filt Rate 77 ml/min (>60); GFR (African American) 93 ML/MIN (>60); Globulin 4.2 g/dL (1.3-3.2); Glucose 81 mg/dl (74-100); HDL Cholesterol 58 mg/dl (40-60); Potassium 4.2 mmoL/L (3.5-5.1); Sodium 137 mmol/L (136-145); Triglycerides 386 mg/dl (30-150); VLDL Cholesterol 77 mg/dL (0-40)
[2020-11-24 19:52] LABS: Direct LDL Cholesterol 88.23 mg/dL (100-129)
[2020-11-24 19:54] LABS: Hemoglobin A1C 5.8 % (4.0-6.0)
[2020-11-24 20:12] LABS: Thyroid Stimulating Hormone 3.76 uIU/mL (0.465-4.68)
[2020-11-24 20:15] LABS: Free T4 (Free Thyroxine) 1.18 ng/dl (0.78-2.19)
== END ==
PROVIDERS: Visit Provider Emergency Medicine
DX: E11.9 Type 2 diabetes mellitus without complications (principal); E55.9 Vitamin D deficiency, unspecified; Z79.84 Long term (current) use of oral hypoglycemic drugs
CPT/HCPCS: 80053; 80061; 82306; 83036; 84439; 84443; 85025

== ENCOUNTER 2021-03-26 09:32 | Observation (INO) | payer OTHER, SELFPAY ==
[2021-03-26] VITALS (12 sets, daily range): BP systolic 144–179; BP diastolic 95–123; PULSE 80–135; RESP 18–28; TEMP 36.7–37.3; O2SAT 92–98; BMI 35.6; BMI 35.9; BMI 36.2
--- NOTE | 2021-03-26 09:45 | ECG_ITS ---
APPROVED REPORT Exam: Resting ECG HR:130 bpm ECG Measurements Heart Rate 130 AXES HI 140 P 43 QRSd 76 QRS 36 QT 298 T 35 QTc 438 Conclusion Sinus tachycardia Possible Left atrial enlargement Low voltage QRS Abnormal ECG Electronically signed by : Sang Araiza, 03/27/2021 08:52:27
--- NOTE | 2021-03-26 09:46 | XR_ITS ---
PROCEDURE INFORMATION: Exam: XR Chest Exam date and time: 03/26/2021 9:46 AM Age: 45 years old Clinical indication: Cough TECHNIQUE: Imaging protocol: XR of the chest. Views: 1 view. COMPARISON: CR XR CHEST PORTABLE 02/09/2020 2:45 PM FINDINGS: Lungs: Parenchymal opacity in the left retrocardiac region- atelectasis versus infiltrate. Pleural spaces: Unremarkable. No pleural effusion. No pneumothorax. Heart/Mediastinum: Hiatal hernia Bones/joints: Unremarkable. IMPRESSION: Parenchymal opacity in the left retrocardiac region- atelectasis versus infiltrate.
[2021-03-26 09:52] LABS: Adenovirus,PCR Not Detected (NotDetected); Bordetella Pertussis Not Detected (NotDetected); Chlamydophila Pneumoniae, PCR Not Detected (NotDetected); Coronavirus 19, PCR Not Detected (NotDetected); Coronavirus 229E Not Detected (NotDetected); Coronavirus NL63 Not Detected (NotDetected); Coronavirus OC43 Not Detected (NotDetected); Coronovirus HKU1,PCR Not Detected (NotDetected); Human Metapneumovirus Not Detected (NotDetected); Influenza A, PCR Not Detected (NotDetected); Influenza AH1, 2009 Not Detected (NotDetected); Influenza AH1, PCR Not Detected (NotDetected); Influenza AH3,PCR Not Detected (NotDetected); Influenza B, PCR Not Detected (NotDetected); Mycoplasma Pneumoniae, PCR Not Detected (NotDetected); Parainfluenza 1, PCR Not Detected (NotDetected); Parainfluenza 2, PCR Not Detected (NotDetected); Parainfluenza 3, PCR Not Detected (NotDetected); Parainfluenza 4, PCR Not Detected (NotDetected); Respiratory Syncytial Virus Not Detected (NotDetected); Rhinovirus/Enterovirus Not Detected (NotDetected)
[2021-03-26 10:00] LABS: Basophils % 0.1 % (0.1-2.0); Eosinophils # 0.1 K/mm3 (0.0-0.4); Eosinophils % 0.3 % (0.1-12.0); Mean Platelet Volume 7.3 fl (7.4-10.4)
[2021-03-26 10:02] LABS: Hematocrit 38.4 % (37.0-47.0); Hemoglobin 12.9 g/dL (12.2-16.2); Lymphocytes % 5.3 % (10-50); Mean Corpuscular HGB Conc 33.5 g/dL (31.8-35.4); Mean Corpuscular Hemoglobin 25.3 pg (27.0-31.2); Mean Corpuscular Volume 75.7 fl (81-99); Monocytes # 0.5 K/mm3 (0.1-1.0); Monocytes % 2.9 % (1.7-9.3); Neutrophils # 17.1 K/mm3 (1.8-7.8); Neutrophils % 91.4 % (37.0-80.0); Platelet Count 311 K/mm3 (142-424); Red Blood Count 5.07 M/mm3 (4.20-5.40); Red Cell Distribution Width 15.4 % (11.5-17.5); White Blood Count 18.7 K/mm3 (4.8-10.8)
[2021-03-26 10:04] LABS: Chloride 103 mmol/L (98-107); Potassium 3.8 mmoL/L (3.5-5.1); Sodium 137 mmol/L (136-145)
[2021-03-26 10:06] LABS: Blood Urea Nitrogen 14 mg/dl (7-17)
[2021-03-26 10:07] LABS: Alanine Aminotransferase 23 U/L (12-78); Albumin Level 4.6 g/dl (3.5-5.0); Albumin/Globulin Ratio 1.3 (1.1-1.8); Alkaline Phosphatase 104 U/L (38-126); Anion Gap 13.8 mEq/L (5-15); Aspartate Amino Transferase 23 U/L (14-36); Bilirubin,Total 0.4 mg/dl (0.2-1.3); Calcium 9.3 mg/dl (8.4-10.2); Carbon Dioxide 24 mmol/L (22.0-30.0); Creatinine Clearance Estimated 121 mL/min (50-200); Estimated Glomerular Filt Rate 77 ml/min (>60); GFR (African American) 93 ML/MIN (>60); Globulin 3.6 g/dL (1.3-3.2); Glucose 183 mg/dl (74-100); Total Protein,Serum 8.2 g/dl (6.3-8.2)
[2021-03-26 10:10] LABS: Lactic Acid 2.5 mmol/L (0.7-2.1); MANUAL DIFFERENTIAL MANUAL DIFFERENTIAL (MANUAL DIFF)
--- NOTE | 2021-03-26 10:10 | HMH.EDGENADL ---
ED Disposition Clinical Impression: Dehydration, Pneumonia, Vomiting Disposition: Admitted As Inpatient Condition on Discharge: Good - Critical Care Critical Care Time: No Attestation: On 03/26/21, the high probability of a clinically significant, sudden or life threatening deterioration of the following system(s) required my full and direct attention, intervention and personal management. The time I documented below is in addition to time spent performing reported procedures but includes the following listed in this critical care notation. Medical Decision Making - Medical Records MR Comment: Pneumonia in addition to leukocytosis and fever with nausea vomiting and elevated lactic acid she will be admitted for pneumonia and for hydration. Dr. Araiza was called and he agreed admission. - Wyatt Inquiry Pt receiving controlled substance: No Vital Signs: 03/26/21 09:32 03/26/21 09:42 03/26/21 10:30 Temperature 99.2 F Temperature Source Oral Pulse Rate 135 H 93 H Pulse Rate [Radial] 132 H Respiratory Rate 20 28 H 18 Blood Pressure 167/107 H 166/100 H Blood Pressure [Right Arm] 179/123 H Blood Pressure Mean 130 122 Blood Pressure Mean [Right Arm] 141 Blood Pressure Position Blood Pressure Position [Right Arm] Sitting 02 Sat by Pulse Oximetry 98 93 L 92 L Oxygen Delivery Method Room Air 03/26/21 11:00 03/26/21 11:30 03/26/21 12:00 Temperature Temperature Source Pulse Rate 104 H 103 H 100 H Pulse Rate [Radial] Respiratory Rate 22 22 18 Blood Pressure 156/117 H 144/95 H 154/97 H Blood Pressure [Right Arm] Blood Pressure Mean 129 111 115 Blood Pressure Mean [Right Arm] Blood Pressure Position Blood Pressure Position [Right Arm] 02 Sat by Pulse Oximetry 92 L 94 L 96 Oxygen Delivery Method 03/26/21 12:30 03/26/21 13:22 Temperature 99 F Temperature Source Oral Pulse Rate 96 H 105 H Pulse Rate [Radial] Respiratory Rate 18 20 Blood Pressure 157/106 H 150/103 H Blood Pressure [Right Arm] Blood Pressure Mean 118 Blood Pressure Mean [Right Arm] Blood Pressure Position Sitting Blood Pressure Position [Right Arm] 02 Sat by Pulse Oximetry 96 Oxygen Delivery Method Room Air - Lab Data Lab Results 03/26/21 09:40: Chlamy pneumoniae PCR Not detected, Adenovirus (PCR) Not detected, B. pertussis DNA (PCR) Not detected, Coronavirus OC43 (PCR) Not detected, Coronavirus HKU1 (PCR) Not detected, Coronavirus 229E (PCR) Not detected, SARS-CoV-2 (PCR) Not detected, Coronavirus NL63 (PCR) Not detected, Human Metapneumovir PCR Not detected, Influenza A (H1) PCR Not detected, Influ A (H1N1/09) PCR Not detected, Influenza A (H3) PCR Not detected, Influenza Type A (PCR) Not detected, Influenza Type B (PCR) Not detected, M. pneumoniae (PCR) Not detected, Parainfluenza 1 (PCR) Not detected, Parainfluenza 2 (PCR) Not detected, Parainfluenza 3 (PCR) Not detected, Parainfluenza 4 (PCR) Not detected, RSV (PCR) Not detected, Entero/Rhino (PCR) Not detected 03/26/21 09:50: WBC 18.7 H, RBC 5.07, Hgb 12.9, Hct 38.4, MCV 75.7 L, MCH 25.3 L, MCHC 33.5, RDW 15.4, Plt Count 311, MPV 7.3 L, Neut % (Auto) 91.4 H, Lymph % (Auto) 5.3 L, [place] % (Auto) 2.9, Eos % (Auto) 0.3, Baso % (Auto) 0.1, Neut # (Auto) 17.1 H, Lymph # (Auto) 1.0, [place] # (Auto) 0.5, Eos # (Auto) 0.1, Baso # (Auto) 0.0, Total Counted 100, Neutrophils % (Manual) 84 H, Lymphocytes % (Manual) 13, Monocytes % (Manual) 3, Platelet Estimate Normal, RBC Morphology Not Reportable, Anisocytosis 1+, Microcytosis 1+ 03/26/21 09:50: Sodium 137, Potassium 3.8, Chloride 103, Carbon Dioxide 24, Anion Gap 13.8, BUN 14, Creatinine 0.80, Estimated Creat Clear 121, Estimated GFR 77, Est GFR ( Amer) 93, Glucose 183 H, Calcium 9.3, Total Bilirubin 0.4, AST 23, ALT 23, Alkaline Phosphatase 104, Total Protein 8.2, Albumin 4.6, Globulin 3.6 H, Albumin/Globulin Ratio 1.3 03/26/21 09:50: Lactate 2.5 H Result diagrams: 03/26/21 13:55
[2021-03-26 10:19] LABS: Anisocytosis 1+; Lymphocytes % 13 % (10-50); Microcytosis 1+; Monocytes % 3 % (2-9); Neutrophils % 84 % (42-76); Platelet Estimate Normal; Total Cells Counted 100
--- NOTE | 2021-03-26 11:00 | PC.NURSE ---
PT RESTING UPDATED ON PLAN OF CARE
--- NOTE | 2021-03-26 11:59 | PC.NURSE ---
ATTEMPTED TO CALL REPORT NURSE OFF THE FLOOR HE WILL HAVE TO CALL YOU BACK
--- NOTE | 2021-03-26 12:36 | PC.NURSE ---
REPORT CALLED TO FLOOR
--- NOTE | 2021-03-26 12:46 | PC.NURSE ---
REVIEWED BLOOD PRESSURES WITH NO NEW ORDERS NOTED
[2021-03-26 13:44] LABS: Reflex Lactic Add Lactic Reflex
[2021-03-26 14:14] LABS: Basophils % 0.1 % (0.1-2.0); Eosinophils # 0.1 K/mm3 (0.0-0.4); Eosinophils % 0.3 % (0.1-12.0); Hematocrit 35.8 % (37.0-47.0); Hemoglobin 11.7 g/dL (12.2-16.2); Lymphocytes # 1.4 K/mm3 (0.7-4.5); Lymphocytes % 6.8 % (10-50); Mean Corpuscular HGB Conc 32.8 g/dL (31.8-35.4); Mean Corpuscular Hemoglobin 24.9 pg (27.0-31.2); Mean Corpuscular Volume 76.1 fl (81-99); Mean Platelet Volume 7.4 fl (7.4-10.4); Monocytes # 0.5 K/mm3 (0.1-1.0); Monocytes % 2.2 % (1.7-9.3); Neutrophils # 18.7 K/mm3 (1.8-7.8); Neutrophils % 90.5 % (37.0-80.0); Platelet Count 289 K/mm3 (142-424); Red Cell Distribution Width 15.4 % (11.5-17.5); White Blood Count 20.7 K/mm3 (4.8-10.8)
[2021-03-26 14:18] LABS: Chloride 105 mmol/L (98-107); Sodium 138 mmol/L (136-145)
[2021-03-26 14:19] LABS: Potassium 4.1 mmoL/L (3.5-5.1)
[2021-03-26 14:21] LABS: Alanine Aminotransferase 18 U/L (12-78); Alkaline Phosphatase 85 U/L (38-126); Anion Gap 11.1 mEq/L (5-15); Aspartate Amino Transferase 35 U/L (14-36); Bilirubin,Total 0.5 mg/dl (0.2-1.3); Blood Urea Nitrogen 13 mg/dl (7-17); Carbon Dioxide 26 mmol/L (22.0-30.0); Creatinine Clearance Estimated 121 mL/min (50-200); Estimated Glomerular Filt Rate 77 ml/min (>60); GFR (African American) 93 ML/MIN (>60); Lactic Acid Follow Up (RFLX 1) 1.3 mmol/L (0.7-2.1)
[2021-03-26 14:22] LABS: Albumin Level 3.9 g/dl (3.5-5.0); Albumin/Globulin Ratio 1.1 (1.1-1.8); Calcium 8.6 mg/dl (8.4-10.2); Globulin 3.5 g/dL (1.3-3.2); Glucose 121 mg/dl (74-100); Total Protein,Serum 7.4 g/dl (6.3-8.2)
--- NOTE | 2021-03-26 14:37 | HMH.PHAINT ---
HOME MEDICATIONS RECONCILED FROM PATIENT INTERVIEW AND FILL HISTORY.
--- NOTE | 2021-03-26 14:39 | HMH.PHAVTE ---
[facility] Pharmacy VTE Monitoring - Patient Demographics Admission date: 03/26/21 Report Date: 03/26/21 Time: 14:39 Allergies/Adverse Reactions: Patient Allergies lisinopril Allergy (Severe, Verified 03/04/21 11:38) Cough tramadol [TRAMADOL] Allergy (Unknown, Verified 03/04/21 11:38) I-ITCHING acetaminophen [From ULTRACET] Adverse Reaction (Unknown, Verified 03/26/21 14:29) UPSET STOMACH Height: 1.57 m Weight: 88.45 kg Patient Problems: Current Active Problems Dehydration (Acute) Pneumonia (Acute) Vomiting (Acute) - VTE Risk Labs: VTE Related Lab Results Hgb 11.7 g/dL (12.2-16.2) L 03/26/21 13:55 Hct 35.8 % (37.0-47.0) L 03/26/21 13:55 Plt Count 289 K/mm3 (142-424) 03/26/21 13:55 BUN 13 mg/dl (7-17) 03/26/21 13:55 Creatinine 0.80 mg/dl (0.52-1.04) 03/26/21 13:55 Estimated Creat Clear 121 mL/min (50-200) 03/26/21 13:55 - Prophylaxis VTE Prophylaxis Ordered?: Yes Types of VTE Prophylaxis: TEDS Knee High Location of Applied Device: Bilateral Lower Extremeties
--- NOTE | 2021-03-26 15:15 | PC.NURSE ---
SHE IS AOX4, ABLE TO MAKE NEEDS KNOWN TO STAFF, SHE IS TOLERATING RA AT THIS TIME WITH O2 SATS IN THE MID 90'S, SHE HAS DENIED N/V SINCE ARRIVING TO THE FLOOR, HAS REMAINED MILDLY HYPERTENSIVE, NO C/O PAIN THUS FAR, TOLERATED DIET WELL, AMBULATED TO RESTROOM UNDER HER OWN POWER, NO NEEDS AT THIS TIME, WILL CONTINUE TO MONITOR.
--- NOTE | 2021-03-26 15:40 | PC.NURSE ---
pt had sputum induction at this time with NO resutls. Pt has cup at beside. Room air sat 95%.
[2021-03-27] VITALS: BP 139/98; PULSE 87; RESP 18; TEMP 36.6; O2SAT 95
[2021-03-27 03:25] VITALS: BP 133/84; PULSE 99; RESP 17; TEMP 36.7; O2SAT 94
[2021-03-27 05:02] VITALS: BMI 36.2
--- NOTE | 2021-03-27 05:46 | PC.NURSE ---
Patient oriented times four. Admitted for PNA. Patient SpO2 stable all above 95% on room air. Patient slept comfortably most of this shift. Patient to have a CXR 2 view. Patient has maintenance fluids NS 100 ml/hr. Patient did not require pain medication this shift. Will continue to monitor for any acute changes.
--- NOTE | 2021-03-27 06:00 | XR_ITS ---
PROCEDURE INFORMATION: Exam: XR Chest Exam date and time: 03/27/2021 6:00 AM Age: 45 years old Clinical indication: Shortness of breath; Patient HX: Pneumonia TECHNIQUE: Imaging protocol: XR of the chest. Views: 2 views. COMPARISON: CR XR CHEST PORTABLE 03/26/2021 9:51 AM FINDINGS: Lungs: There is hypoinflation with a persistent mild retrocardiac infiltrate. Pleural spaces: No pleural effusion or pneumothorax is seen. Heart/Mediastinum: The cardiac silhouette does not appear enlarged given the poor inspiratory effort. Bones/joints: The bones are normal. IMPRESSION: Persistent retrocardiac infiltrate.
[2021-03-27 08:00] VITALS: BP 149/88; PULSE 86; RESP 18; TEMP 36.8; O2SAT 92
[2021-03-27 08:38] LABS: Basophils % 0.1 % (0.1-2.0); Eosinophils # 0.1 K/mm3 (0.0-0.4); Hematocrit 32.9 % (37.0-47.0); Hemoglobin 10.8 g/dL (12.2-16.2); Lymphocytes # 2.1 K/mm3 (0.7-4.5); Lymphocytes % 13.6 % (10-50); Mean Corpuscular HGB Conc 32.9 g/dL (31.8-35.4); Mean Corpuscular Hemoglobin 25.1 pg (27.0-31.2); Mean Corpuscular Volume 76.3 fl (81-99); Mean Platelet Volume 7.4 fl (7.4-10.4); Monocytes # 0.3 K/mm3 (0.1-1.0); Neutrophils # 12.6 K/mm3 (1.8-7.8); Neutrophils % 83.3 % (37.0-80.0); Platelet Count 273 K/mm3 (142-424); Red Blood Count 4.31 M/mm3 (4.20-5.40); Red Cell Distribution Width 15.6 % (11.5-17.5); White Blood Count 15.1 K/mm3 (4.8-10.8)
[2021-03-27 08:39] LABS: MANUAL DIFFERENTIAL MANUAL DIFFERENTIAL (MANUAL DIFF)
[2021-03-27 08:42] LABS: Chloride 108 mmol/L (98-107)
[2021-03-27 08:43] LABS: Potassium 3.6 mmoL/L (3.5-5.1); Sodium 136 mmol/L (136-145)
[2021-03-27 08:46] LABS: Anion Gap 10.6 mEq/L (5-15); Blood Urea Nitrogen 13 mg/dl (7-17); Calcium 8.5 mg/dl (8.4-10.2); Carbon Dioxide 21 mmol/L (22.0-30.0); Creatinine Clearance Estimated 123 mL/min (50-200); Estimated Glomerular Filt Rate 77 ml/min (>60); GFR (African American) 93 ML/MIN (>60); Glucose 151 mg/dl (74-100)
[2021-03-27 09:11] LABS: Anisocytosis 1+; Lymphocytes % 22 % (10-50); Microcytosis 1+; Monocytes % 1 % (2-9); Neutrophils % 77 % (42-76); Platelet Estimate Normal; Total Cells Counted 100
--- NOTE | 2021-03-27 09:25 | HMH.HP ---
*Admission Date: 03/26/21 *Chief complaint: vomiting *History of present illness: this patient presented to [facility] ED PER PVT CAR WITH C/O NAUSEA, VOMITING, COUGH, CHILLS, GENERALIZED ACHES STARTING THIS AM. PT STATES UNABLE TO KEEP ANYTHING DOWN 45-year-old female walked to the emergency room complaining cough nausea vomiting for today. Also muscle aches. She denied any chest pain or shortness of breath. She denies any diarrhea. The only medical problem she has is [id number] diabetes and hypertension. The vomiting is clear not brown or green. pt was seen and admitted with cap and started on ivf and meds [facility] History I have reviewed the patient's past medical history: Yes Medical History: Reports:: Anxiety, Depression, Diabetes Mellitus Type 2, Gastroesophageal Reflux Disease(GERD), Hyperlipidemia, Hypertension Denies:: Cancer, Diabetes Mellitus Type 1, Internal Pacemaker, MRSA, Seizures *Have you ever received a pneumonia vaccine?: No *Have you received a flu vaccine this season?: No Other Medical History: Reports: Arthritis. Denies: Blood Transfusion Reaction, Hypothyroidism, Thyroid Disease Laterality Cases: Right: Other Other Surgeries: Yes: No Previous Surgery, Cholecystectomy, Colonoscopy, Hysterectomy-Total, Hysterectomy-Partial, Tubal Ligation, Other. No: Pacemaker Amputation: No Fractures: No - *Social History Last grade of school completed: High school graduate Smoking Status: Never smoker Tobacco Type: cigarettes # Packs/Day (cigarettes): 0 #Yrs smoked (if former smoker): 12 Alcohol Intake: never Alcohol Intake Frequency:: other Substance Use Type: denies use *Occupational Status:: employed Housing: house Household Members: significant other *Travel in the last 8 weeks: None - Psychiatric History Pschychiatric History:: Reports:: Anxiety, Depression Family Hx:: Hyperlipidemia, Hypertension, Diabetes Review of Systems - Review of Systems Review of systems:: pertinent systems reviewed and negative unless documented below - Constitutional Denies fever(s) - Eyes Denies change in vision - ENT Reports nasal congestion, Denies sore throat - *Cardiovascular Reports shortness of breath - *Respiratory Reports cough, Reports shortness of breath - *Gastrointestinal Reports vomiting, Denies abdominal pain - *Genitourinary Denies blood in urine - *Musculoskeletal Denies joint pain - Integumentary/Breasts Denies rash - *Neurologic Reports headache(s), Reports weakness, Denies localized weakness - Psychiatric Reports anxiety, Denies depression Meds Home Medications Medication Instructions Recorded Confirmed Type carvedilol 25 mg tablet 25 mg PO BID #180 tab 07/26/20 03/26/21 Rx lactic acid-urea lotion 1 applic TOPICAL DAILY PRN #473 ml 07/26/20 03/26/21 Rx Fluticasone Propionate [Flonase 1 spray INTRANASAL DAILY 07/30/20 03/26/21 History Allergy Relief NS] Mupirocin [Centany] 1 applic TOPICAL TID 07/30/20 03/26/21 History Urea 1 applic TOPICAL BID 07/30/20 03/26/21 History potassium chloride 20 mEq 20 meq PO DAILY #90 tab 09/14/20 03/26/21 Rx tablet,extended release(part/cryst) Aspirin [Low Dose Aspirin EC] 81 mg PO DAILY 11/09/20 03/26/21 History Metoclopramide HCl [Metoclopramide 5 mg PO TID 11/09/20 03/26/21 History 5mg Tab] ammonium lactate 12 % topical cream 12 applic TOPICAL DIRECTED 11/18/20 03/26/21 History hydrocortisone 2.5 % lotion 1 applic TOPICAL DAILY PRN #59 ml 11/24/20 03/26/21 Rx cholecalciferol (vitamin D3) 25 1,000 unit PO DAILY #90 cap 11/25/20 03/26/21 Rx mcg (1,000 unit) capsule oxybutynin chloride 10 mg 10 mg PO DAILY #90 tab 01/14/21 03/26/21 Rx tablet,extended release 24 hr cetirizine 10 mg tablet 10 mg PO DAILY #90 tab 02/16/21 03/26/21 Rx metformin 1,000 mg tablet 1,000 mg PO BID #180 tab 02/28/21 03/26/21 Rx guanfacine 2 mg tablet,extended 2 mg PO DAILY #30 tab 03/01/21 03/26/21 Rx release 24 hr sertraline 100 mg tablet 150 mg P
[2021-03-27 12:00] VITALS: BP 144/88; PULSE 89; RESP 18; TEMP 36.7; O2SAT 95
--- NOTE | 2021-03-27 14:01 | PC.NURSE ---
SHE IS AOX4, ABLE TO MAKE NEEDS KNOWN TO STAFF, SHE HAS RESTED IN BED FOR MOST OF SHIFT BUT DOES AMBULATE IN ROOM INDEPENDENTLY. SHE DOES NOT REQUIRE O2 SUPPORT AT THIS TIME, HAS DENIED N/V/D T/O THIS SHIFT, SHE HAS REMAINED AFEBRILE THUS FAR, TOLERATING PO INTAKE WELL, LUNG SOUNDS REMAIN DIMINISHED T/O BUT SHE DENIES DIFFICULTY BREATHING. NO NEEDS AT THIS TIME, WILL CONTINUE TO MONITOR.
[2021-03-27 16:00] VITALS: BP 140/84; PULSE 92; RESP 18; TEMP 36.8; O2SAT 96
[2021-03-27 20:00] VITALS: BP 155/97; PULSE 72; RESP 18; TEMP 36.6; O2SAT 96
[2021-03-28] VITALS: BP 126/82; PULSE 89; RESP 18; TEMP 36.6; O2SAT 95
--- NOTE | 2021-03-28 00:25 | PC.NURSE ---
Report received from Sammy Pope RN
[2021-03-28 04:00] VITALS: BP 144/84; PULSE 88; RESP 16; TEMP 36.9; O2SAT 95
--- NOTE | 2021-03-28 04:35 | PC.NURSE ---
No acute changes at this time. Pt has slept well this shift. Has c/o discomfort to legs x1. VS have remained stable. Pt remains on RA. Urine specimen obtained. Awaiting results. Will continue to monitor.
[2021-03-28 04:54] LABS: Microscopic, Urine URINE MICROSCOPIC (MICROSCOPIC)
[2021-03-28 05:37] LABS: Appearance,Urine CLEAR (Clear); Bilirubin,Urine Negative (Negative); Blood, Urine Negative (Negative); Color,Urine STRAW (Yellow); Glucose,Urine (UA) Negative (Negative); Ketones,Urine Negative (Negative); Leukocyte Esterase,Urine Negative (Negative); Nitrate,Urine Negative (Negative); Protein,Urine Negative (Negative); Specific Gravity, Urine 1.015 (1.005-1.030); Urobilinogen,Urine 0.2 EU/dl (0.2)
[2021-03-28 05:51] LABS: Squamous Epithelial Cell,Urine Occasional #/hpf (0-5); WBC,Urine Occasional #/hpf (0-3)
[2021-03-28 06:59] VITALS: BMI 36.2
[2021-03-28 08:00] VITALS: BP 164/86; PULSE 85; RESP 18; TEMP 36.9; O2SAT 97
--- NOTE | 2021-03-28 08:44 | HMH.DCSUM ---
General - General Admission date:: 03/26/21 Discharge date: 03/28/21 HPI HPI: this patient presented to [facility] ED PER PVT CAR WITH C/O NAUSEA, VOMITING, COUGH, CHILLS, GENERALIZED ACHES STARTING THIS AM. PT STATES UNABLE TO KEEP ANYTHING DOWN 45-year-old female walked to the emergency room complaining cough nausea vomiting for today. Also muscle aches. She denied any chest pain or shortness of breath. She denies any diarrhea. The only medical problem she has is [id number] diabetes and hypertension. The vomiting is clear not brown or green. pt was seen and admitted with cap and started on ivf and meds Hospital Course Hospital Course: Laboratory Tests 03/26/21 03/26/21 03/26/21 09:40 09:50 09:50 WBC 18.7 H RBC 5.07 Hgb 12.9 Hct 38.4 MCV 75.7 L MCH 25.3 L MCHC 33.5 RDW 15.4 Plt Count 311 MPV 7.3 L Neut % (Auto) 91.4 H Lymph % (Auto) 5.3 L [place] % (Auto) 2.9 Eos % (Auto) 0.3 Baso % (Auto) 0.1 Neut # (Auto) 17.1 H Lymph # (Auto) 1.0 [place] # (Auto) 0.5 Eos # (Auto) 0.1 Baso # (Auto) 0.0 Total Counted 100 Neutrophils % (Manual) 84 H Lymphocytes % (Manual) 13 Monocytes % (Manual) 3 Platelet Estimate Normal RBC Morphology Not Reportable Anisocytosis 1+ Microcytosis 1+ Sodium 137 Potassium 3.8 Chloride 103 Carbon Dioxide 24 Anion Gap 13.8 BUN 14 Creatinine 0.80 Estimated Creat Clear 121 Estimated GFR 77 Est GFR ( Amer) 93 Glucose 183 H Lactate Calcium 9.3 Total Bilirubin 0.4 AST 23 ALT 23 Alkaline Phosphatase 104 Total Protein 8.2 Albumin 4.6 Globulin 3.6 H Albumin/Globulin Ratio 1.3 Urine Color Urine Appearance Urine pH Ur Specific [place] Urine Protein Urine Glucose (UA) Urine Ketones Urine Blood Urine Nitrate Urine Bilirubin Urine Urobilinogen Ur Leukocyte Esterase Urine WBC Ur Squamous Epith Cells Chlamy pneumoniae PCR Not detected Adenovirus (PCR) Not detected B. pertussis DNA (PCR) Not detected Coronavirus OC43 (PCR) Not detected Coronavirus HKU1 (PCR) Not detected Coronavirus 229E (PCR) Not detected SARS-CoV-2 (PCR) Not detected Coronavirus NL63 (PCR) Not detected Human Metapneumovir PCR Not detected Influenza A (H1) PCR Not detected Influ A (H1N1/09) PCR Not detected Influenza A (H3) PCR Not detected Influenza Type A (PCR) Not detected Influenza Type B (PCR) Not detected M. pneumoniae (PCR) Not detected Parainfluenza 1 (PCR) Not detected Parainfluenza 2 (PCR) Not detected Parainfluenza 3 (PCR) Not detected Parainfluenza 4 (PCR) Not detected RSV (PCR) Not detected Entero/Rhino (PCR) Not detected 03/26/21 03/26/21 03/26/21 09:50 13:55 13:55 WBC 20.7 H* RBC 4.70 Hgb 11.7 L Hct 35.8 L MCV 76.1 L MCH 24.9 L MCHC 32.8 RDW 15.4 Plt Count 289 MPV 7.4 Neut % (Auto) 90.5 H Lymph % (Auto) 6.8 L [place] % (Auto) 2.2 Eos % (Auto) 0.3 Baso % (Auto) 0.1 Neut # (Auto) 18.7 H Lymph # (Auto) 1.4 [place] # (Auto) 0.5 Eos # (Auto) 0.1 Baso # (Auto) 0.0 Total Counted Neutrophils % (Manual) Lymphocytes % (Manual) Monocytes % (Manual) Platelet Estimate RBC Morphology Anisocytosis Microcytosis Sodium 138 Potassium 4.1 Chloride 105 Carbon Dioxide 26 Anion Gap 11.1 BUN 13 Creatinine 0.80 Estimated Creat Clear 121 Estimated GFR 77 Est GFR ( Amer) 93 Glucose 121 H D Lactate 2.5 H Calcium 8.6 Total Bilirubin 0.5 AST 35 D ALT 18 Alkaline Phosphatase 85 Total Protein 7.4 Albumin 3.9 D Globulin 3.5 H Albumin/Globulin Ratio 1.1 Urine Color Urine Appearance Urine pH Ur Specific [place] Urine Protein Urine Glucose (UA) Urine Ketones Ur
== END 2021-03-28 11:24 | disposition home or self-care (01) | DRG 195 ==
LOC: ER 11:45 → 2ND 13:01
PROVIDERS: Admitting Provider Internal Medicine Adolescent Medicine; Emergency Provider Internal Medicine; PCP Emergency Medicine; Visit Provider Emergency Medicine
DX: J18.9 Pneumonia, unspecified organism (principal); E11.42 Type 2 diabetes mellitus with diabetic polyneuropathy; I10 Essential (primary) hypertension; K21.9 Gastro-esophageal reflux disease without esophagitis; E78.5 Hyperlipidemia, unspecified; E03.9 Hypothyroidism, unspecified; Z79.84 Long term (current) use of oral hypoglycemic drugs; E66.01 Morbid (severe) obesity due to excess calories; Z68.36 Body mass index [BMI] 36.0-36.9, adult
CPT/HCPCS: 71045; 71046; 80048; 80053; 81001; 83605; 85007; 85025; 87040; 87581; 87633; 87798; 93005; 96365; 96366; 96375; 99284; G0378; J0456; J2405

== ENCOUNTER → 2021-07-05 12:03 | Outpatient (CLI) | payer OTHER, SELFPAY | PROVIDERS: Visit Provider Podiatrist | DX: M79.671 Pain in right foot (principal); B35.3 Tinea pedis | CPT/HCPCS: 87077; 87186; 87205 ==

== ENCOUNTER → 2021-09-09 10:14 | Outpatient (CLI) | payer OTHER, SELFPAY ==
--- NOTE | 2021-09-09 10:21 | XR_ITS ---
PROCEDURE: XR ELBOW RT MIN 3V CLINICAL INDICATION: pain post fall COMPARISON: No exams were available for comparison FINDINGS: No fracture or dislocation. No lytic or blastic change. There is normal mineralization. Bony hypertrophic changes are present at the coracoid process. No displaced fat pad. IMPRESSION: No acute finding. Hypertrophic changes of the coracoid process Dictated by: Bubba Black MD 09/09/2021 15:06 Bubba Black MD in [place] 09/09/2021 15:06
--- NOTE | 2021-09-09 10:21 | XR_ITS ---
PROCEDURE: XR FOREARM RT 2V CLINICAL INDICATION: pain post fall COMPARISON: CR XR ELBOW RT MIN 3V from 09/09/2021 FINDINGS: There is hypertrophy of the coracoid process. At the base of a bony spur at this region there is some irregularity of bony cortex. This is not well demonstrated on the elbow images. The remaining radius and ulna have an unremarkable appearance. IMPRESSION: Possible nondisplaced fracture involving the base of a prominent spur at the coracoid process along the medial aspect of the proximal humerus otherwise negative Dictated by: Bubba Black MD 09/09/2021 15:09 Bubba Black MD in [place] 09/09/2021 15:09
--- NOTE | 2021-09-09 10:21 | XR_ITS ---
PROCEDURE: XR WRIST RT W SCAPHOID CLINICAL INDICATION: pain post fall COMPARISON: No exams were available for comparison FINDINGS: No fracture or dislocation. No lytic or blastic change. There is normal mineralization. The joint spaces are well-preserved. No significant degenerative/arthritic changes. No erosive changes evident. Other findings:None. IMPRESSION: No acute findings. Dictated by: Bubba Black MD 09/09/2021 15:10 Bubba Black MD in [place] 09/09/2021 15:10
--- NOTE | 2021-09-09 10:21 | XR_ITS ---
PROCEDURE: XR HAND RT MIN 3V CLINICAL INDICATION: pain post fall COMPARISON: CR XR HAND LT MIN 3V from 11/08/2019 FINDINGS: No fracture or dislocation. No lytic or blastic change. There is normal mineralization. The joint spaces are well-preserved. No significant degenerative/arthritic changes. No erosive changes evident. Other findings:None. IMPRESSION: No acute findings. Dictated by: Bubba Black MD 09/09/2021 15:05 Bubba Black MD in [facility] 09/09/2021 15:05
== END ==
PROVIDERS: PCP Emergency Medicine; Visit Provider Family Medicine
DX: M79.601 Pain in right arm (principal)
CPT/HCPCS: 73080; 73090; 73110; 73130

== ENCOUNTER → 2021-09-27 17:28 | Outpatient (CLI) | payer OTHER, SELFPAY ==
[2021-09-27 17:44] LABS: Coronavirus 19, PCR Not Detected (NotDetected); Influenza A, PCR Not Detected (NotDetected); Influenza B, PCR Not Detected (NotDetected)
== END ==
PROVIDERS: Visit Provider Nurse Practitioner Family
DX: Z20.822 Contact with and (suspected) exposure to COVID-19 (principal); R05.9 Cough, unspecified
CPT/HCPCS: C9803; U0003; U0005

== ENCOUNTER → 2021-12-02 16:00 | Outpatient (CLI) | payer OTHER, SELFPAY ==
[2021-12-02 18:54] LABS: Alanine Aminotransferase 24 U/L (12-78); Albumin Level 4.5 g/dl (3.5-5.0); Albumin/Globulin Ratio 1.3 (1.1-1.8); Alkaline Phosphatase 83 U/L (38-126); Anion Gap 12.1 mEq/L (5-15); Aspartate Amino Transferase 31 U/L (14-36); Bilirubin,Total 0.5 mg/dl (0.2-1.3); Blood Urea Nitrogen 12 mg/dl (7-17); Calcium 9.6 mg/dl (8.4-10.2); Carbon Dioxide 28 mmol/L (22.0-30.0); Chloride 105 mmol/L (98-107); Chol/HDL Ratio 4.5 (1-3.5); Cholesterol 232 mg/dl (140-200); Estimated Glomerular Filt Rate 77 ml/min (>60); GFR (African American) 93 ML/MIN (>60); Globulin 3.4 g/dL (1.3-3.2); Glucose 99 mg/dl (74-100); HDL Cholesterol 52 mg/dl (40-60); Potassium 4.1 mmoL/L (3.5-5.1); Sodium 141 mmol/L (136-145); Total Protein,Serum 7.9 g/dl (6.3-8.2); Triglycerides 248 mg/dl (30-150); VLDL Cholesterol 50 mg/dL (0-40)
[2021-12-02 19:01] LABS: Basophils # 0.1 K/mm3 (0-0.2); Basophils % 1.7 % (0.1-2.0); Eosinophils # 0.1 K/mm3 (0.0-0.4); Eosinophils % 1.3 % (0.1-12.0); Hematocrit 41.9 % (37.0-47.0); Hemoglobin 13.2 g/dL (12.2-16.2); Lymphocytes # 2.2 K/mm3 (0.7-4.5); Lymphocytes % 26.4 % (10-50); Mean Corpuscular HGB Conc 31.5 g/dL (31.8-35.4); Mean Corpuscular Hemoglobin 24.6 pg (27.0-31.2); Mean Corpuscular Volume 78.2 fl (81-99); Mean Platelet Volume 8.4 fl (7.4-10.4); Monocytes # 0.3 K/mm3 (0.1-1.0); Neutrophils # 5.5 K/mm3 (1.8-7.8); Neutrophils % 66.5 % (37.0-80.0); Platelet Count 392 K/mm3 (142-424); Red Blood Count 5.36 M/mm3 (4.20-5.40); Red Cell Distribution Width 16.1 % (11.5-17.5); White Blood Count 8.3 K/mm3 (4.8-10.8)
[2021-12-02 19:05] LABS: Direct LDL Cholesterol 122.01 mg/dL (100-129)
[2021-12-02 19:16] LABS: 25-OH Vitamin D, Total 21.4 ng/mL (30-100)
[2021-12-02 19:25] LABS: Thyroid Stimulating Hormone 2.74 uIU/mL (0.465-4.68)
== END ==
PROVIDERS: Visit Provider Emergency Medicine
DX: E11.9 Type 2 diabetes mellitus without complications (principal); E55.9 Vitamin D deficiency, unspecified; Z79.84 Long term (current) use of oral hypoglycemic drugs; Z79.899 Other long term (current) drug therapy
CPT/HCPCS: 80053; 80061; 82306; 84439; 84443; 85025

== ENCOUNTER → 2021-12-23 13:45 | Outpatient (CLI) | payer OTHER, SELFPAY ==
--- NOTE | 2021-12-23 13:45 | MM_ITS ---
PROCEDURE INFORMATION: Exam: MG Bilateral Screening 3D Mammography Exam date and time: 12/23/2021 1:45 PM Age: 46 years old Clinical indication: Encounter for screening mammogram for malignant neoplasm of breast TECHNIQUE: Imaging protocol: Bilateral Screening tomosynthesis and 2D mammography including computer-aided detection (CAD) when performed. COMPARISON: 06/13/2019. 02/08/2015. FINDINGS: MAMMOGRAPHY: Breast composition: There are scattered areas of fibroglandular density. Mass: No suspicious masses. Architectural distortion: No suspicious distortion. Calcifications: No suspicious calcifications. Asymmetric density: Questionable broad 5.3 cm asymmetry in the left upper outer quadrant, middle depth, best seen on CC projection. This may represent summation artifact of asymmetric glandular tissue. Skin thickening: None. Axillary adenopathy: None. IMPRESSION: Questionable broad 5.3 cm asymmetry in the left upper outer quadrant, middle depth, best seen on CC projection. Recommend left breast spot compression CC/MLO view and ultrasound for further evaluation. No definite mammographic evidence of malignancy in the right breast. ASSESSMENT: BI-RADS Category 0: Incomplete- Need Additional Imaging Evaluation and/or Prior Mammograms for Comparison
== END ==
PROVIDERS: PCP Emergency Medicine; Visit Provider Emergency Medicine
DX: Z12.31 Encounter for screening mammogram for malignant neoplasm of breast (principal)
CPT/HCPCS: 77063; 77067

== ENCOUNTER → 2021-12-27 11:56 | Outpatient (CLI) | payer OTHER, SELFPAY | PROVIDERS: Visit Provider Podiatrist | DX: L84 Corns and callosities (principal) | CPT/HCPCS: 87070; 87077; 87205 ==

== ENCOUNTER → 2022-01-11 14:30 | Outpatient (CLI) | payer OTHER, SELFPAY ==
--- NOTE | 2022-01-11 14:30 | US_ITS ---
PROCEDURE INFORMATION: Exam: US Left Breast, Complete Exam date and time: 01/11/2022 2:55 PM Age: 46 years old Clinical indication: Patient recalled for further evaluation of tissue asymmetry in the left breast on screening mammography TECHNIQUE: Imaging protocol: Complete ultrasound of all four quadrants of the Left breast and the retroareolar regions, including ultrasound of the axilla when performed. COMPARISON: MG MM DIG MAMM DX UNILAT LT CAD 01/11/2022 2:29 PM FINDINGS: Breast: Sonographic images of the left breast including the retroareolar region, all 4 quadrants and the axilla do not demonstrate any solid or cystic masses. No architectural distortion or acoustical shadowing. No skin thickening or axillary adenopathy. IMPRESSION: No sonographic evidence of malignancy. Annual mammographic screening is recommended unless otherwise clinically indicated. ASSESSMENT: BI-RADS Category 1: Negative
--- NOTE | 2022-01-11 14:30 | MM_ITS ---
PROCEDURE INFORMATION: Exam: MG Left Diagnostic Breast Tomosynthesis Exam date and time: 01/11/2022 2:29 PM Age: 46 years old Clinical indication: Patient recalled for further evaluation of tissue asymmetry in the left breast TECHNIQUE: Imaging protocol: Left Diagnostic tomosynthesis and 2D mammography including computer-aided detection (CAD) when performed. Unilateral or bilateral exam. COMPARISON: 1. MG MM DIG SCREENING MAMM BI W/CAD 12/23/2021 1:55 PM 2. MG MM DIG SCREENING MAMM BI W/CAD 06/13/2019 9:16 AM FINDINGS: MAMMOGRAPHY: Digital diagnostic spot compression views of the left breast demonstrate normal overlapping fibroglandular structures without persistent mass or asymmetry identified. IMPRESSION: No mammographic evidence of malignancy. Annual bilateral mammographic screening is recommended unless otherwise clinically indicated. ASSESSMENT: BI-RADS Category 1: Negative
== END ==
PROVIDERS: PCP Emergency Medicine; Visit Provider Emergency Medicine
DX: R92.8 Other abnormal and inconclusive findings on diagnostic imaging of breast (principal)
CPT/HCPCS: 76641; 77061; 77065; G0279

== ENCOUNTER → 2022-03-14 15:03 | Outpatient (CLI) | payer OTHER, SELFPAY ==
[2022-03-14 18:46] LABS: Amphetamine/Metha Screen,Urine Negative ng/ml (<1000); Barbiturates Screen,Urine Negative ng/ml (<200)
[2022-03-14 18:48] LABS: Benzodiazepines Screen,Urine Negative ng/ml (<200)
[2022-03-14 18:49] LABS: Cannabinoid Screen,Urine Positive ng/ml (<50)
[2022-03-14 18:50] LABS: Cocaine Screen,Urine Negative ng/ml (<300); Methadone Screen,Urine Negative ng/ml (<300)
[2022-03-14 18:51] LABS: Opiate Screen,Urine Negative ng/ml (<300)
[2022-03-14 18:52] LABS: Phencyclidine Screen,Urine Negative ng/ml (<25)
== END ==
PROVIDERS: PCP Emergency Medicine; Visit Provider Emergency Medicine
DX: Z79.899 Other long term (current) drug therapy (principal)
CPT/HCPCS: 80305

== ENCOUNTER 2022-06-02 09:50 | Emergency (ER) | payer OTHER, SELFPAY ==
--- NOTE | 2022-06-02 09:58 | HMH.EDGENADL ---
ED Disposition Clinical Impression: Vomiting, Ovarian cyst, Hypokalemia Disposition: Home, Self-Care Condition on Discharge: Fair Additional Instructions: At this time it was felt you are safe to be discharged from the emergency department. If new or worsening symptoms please do not hesitate to return for continued evaluation. Please follow-up with your doctor within 1 week for repeat blood work to check your kidney function, as well as discuss your bilateral ovarian cysts. Prescriptions: Ondansetron [Zofran 4mg ODT] 4 mg PO Q6H PRN #10 tab PRN Reason: Vomiting Transmission Status: Pending to [facility] #[id number] Referrals: Richard Pratt MD [Primary Care Provider] - - Critical Care Critical Care Time: No Attestation: On , the high probability of a clinically significant, sudden or life threatening deterioration of the following system(s) required my full and direct attention, intervention and personal management. The time I documented below is in addition to time spent performing reported procedures but includes the following listed in this critical care notation. Medical Decision Making - [place] Inquiry Pt receiving controlled substance: No Vital Signs: 06/02/22 10:00 06/02/22 10:32 06/02/22 11:30 Temperature 97.9 F Temperature Source Oral Pulse Rate 116 H 112 H Pulse Rate [Left Radial] 132 H Respiratory Rate 17 Blood Pressure 141/89 H 127/88 Blood Pressure [Right Arm] 137/86 Blood Pressure Mean 98 96 Blood Pressure Mean [Right Arm] 103 02 Sat by Pulse Oximetry 98 95 95 Oxygen Delivery Method Room Air Room Air 06/02/22 12:00 06/02/22 12:17 Temperature Temperature Source Pulse Rate 66 75 Pulse Rate [Left Radial] Respiratory Rate 16 16 Blood Pressure 112/72 133/83 Blood Pressure [Right Arm] Blood Pressure Mean 85 99 Blood Pressure Mean [Right Arm] 02 Sat by Pulse Oximetry 95 97 Oxygen Delivery Method Room Air Room Air - Lab Data Lab Results 06/02/22 10:10: WBC 8.6, RBC 4.71, Hgb 13.1, Hct 40.9, MCV 86.8, MCH 27.7, MCHC 31.9, RDW 14.0, Plt Count 470 H, MPV 7.8, Neut % (Auto) 82.4 H, Lymph % (Auto) 11.2, [place] % (Auto) 5.1, Eos % (Auto) 0.9, Baso % (Auto) 0.4, Neut # (Auto) 7.1, Lymph # (Auto) 1.0, [place] # (Auto) 0.4, Eos # (Auto) 0.1, Baso # (Auto) 0.0 06/02/22 10:10: Sodium 137, Potassium 3.1 L, Chloride 100, Carbon Dioxide 25, Anion Gap 15.1 H, BUN 19 H, Creatinine 1.20 H, Estimated Creat Clear 79, Estimated GFR 48 L, Est GFR ( Amer) 58 L, Glucose 122 H, Calcium 10.8 H, Magnesium 1.6, Total Bilirubin 0.5, AST 42 H, ALT 43, Alkaline Phosphatase 58, Total Protein 8.6 H, Albumin 4.9, Globulin 3.7 H, Albumin/Globulin Ratio 1.3, Lipase 58 06/02/22 10:10: SARS-CoV-2 (PCR) Not detected, Influenza A Untype (PCR) Not detected, Influenza Type B (PCR) Not detected 06/02/22 10:18: POC Glucose 116 H Result diagrams: 06/02/22 10:10 06/02/22 10:10 Orders (Tests/Meds): ED MEDICATIONS Generic Name Dose Route Start Last Admin Trade Name Freq PRN Reason Stop Dose Admin Potassium Chloride/Water 100 mls @ 50 mls/hr 06/02/22 11:45 06/02/22 12:22 Potassium Chloride 20meq/100ml Ivpb IV 06/02/22 13:44 50 mls/hr ONCE ONE Administration Discontinued Medications Generic Name Dose Route Start Last Admin Trade Name Freq PRN Reason Stop Dose Admin Lactated Ringer's 1,000 mls @ 999 mls/hr 06/02/22 10:00 06/02/22 10:39 Lactated Ringer's 1000 Ml Bag IV 06/02/22 11:00 999 mls/hr .Q1H1M MARIAH Administration Iopamidol 75 ml 06/02/22 11:08 06/02/22 11:10 Iopamidol-370 (76%);100ml Bottle IV 06/02/22 11:09 75 ml ONCE ONE Administration Ondansetron HCl 4 mg 06/02/22 09:58 06/02/22 10:39 Ondansetron 4mg/2ml Vial IV 06/02/22 09:59 4 mg ONCE ONE Administration Potassium Chloride 40 meq 06/02/22 12:49 Potassium Chloride 20meq Tab PO 06/02/22 12:50 ONCE ONE Sodium Chloride 10 ml 06/02/22 11:08 06/02/22 11:10 Sodiu
[2022-06-02 10:00] VITALS: BP 137/86; PULSE 132; RESP 17; TEMP 36.6; O2SAT 98; BMI 35.4
--- NOTE | 2022-06-02 10:21 | CT_ITS ---
FINAL REPORT TECHNIQUE: After the administration of oral and intravenous contrast, axial images were obtained through the abdomen and pelvis by computed tomography. The study was performed with techniques to keep radiation dose as low as reasonably achievable, (ALARA). Individual dose reduction techniques using automated exposure control or adjustment of mA and/or kV according to the patient's size were employed. CLINICAL HISTORY: intractable vomiting, reported ventral hernia COMPARISON: 08/18/2019 FINDINGS: Abdomen: There is mild bibasilar scarring. Moderate hiatal hernia is identified. The liver is normal in size and attenuation. The patient is status post cholecystectomy. The spleen is unremarkable. The adrenals are normal. The pancreas is unremarkable. There is a less than 1 cm left renal cyst, stable. The aorta is normal in caliber. There is no free fluid or adenopathy. Pelvis: The appendix is normal. Fluid is seen throughout the colon and distal small bowel of uncertain significance, may represent enteritis. The patient is status post hysterectomy. There are probable bilateral ovarian cysts measuring up to 32 mm on the right and 25 mm on the left. The urinary bladder is unremarkable. There is no free fluid or adenopathy. IMPRESSION: Findings may represent enteritis. Probable bilateral ovarian cysts. Recommend follow-up ultrasound in 6-8 weeks. Reviewed, Interpreted and Dictated by Ronny Stanley III, MD Transcribed by Hazel Pinon Authenticated and [facility]
[2022-06-02 10:32] VITALS: BP 141/89; PULSE 116; O2SAT 95
[2022-06-02 10:38] LABS: Coronavirus 19, PCR Not Detected (NotDetected); Influenza A, PCR Not Detected (NotDetected); Influenza B, PCR Not Detected (NotDetected)
--- NOTE | 2022-06-02 10:39 | PC.NURSE ---
pt attempted to provide urine sample, pt was unable to at this time. IV established and blood sent to the lab. covid swab sent to the lab. pt medicated per DEC. pt resting with no needs at this time.
[2022-06-02 10:45] LABS: Basophils % 0.4 % (0.1-2.0); Eosinophils # 0.1 K/mm3 (0.0-0.4); Eosinophils % 0.9 % (0.1-12.0); Hematocrit 40.9 % (37.0-47.0); Hemoglobin 13.1 g/dL (12.2-16.2); Lymphocytes % 11.2 % (10-50); Mean Corpuscular HGB Conc 31.9 g/dL (31.8-35.4); Mean Corpuscular Hemoglobin 27.7 pg (27.0-31.2); Mean Corpuscular Volume 86.8 fl (81-99); Mean Platelet Volume 7.8 fl (7.4-10.4); Monocytes # 0.4 K/mm3 (0.1-1.0); Monocytes % 5.1 % (1.7-9.3); Neutrophils # 7.1 K/mm3 (1.8-7.8); Neutrophils % 82.4 % (37.0-80.0); Platelet Count 470 K/mm3 (142-424); Red Blood Count 4.71 M/mm3 (4.20-5.40); White Blood Count 8.6 K/mm3 (4.8-10.8)
[2022-06-02 10:46] LABS: Chloride 100 mmol/L (98-107)
[2022-06-02 10:47] LABS: Potassium 3.1 mmoL/L (3.5-5.1); Sodium 137 mmol/L (136-145)
--- NOTE | 2022-06-02 10:48 | PC.NURSE ---
pt's room lights dimmed for comfort while awaiting results and CT
[2022-06-02 10:49] LABS: Alanine Aminotransferase 43 U/L (12-78); Alkaline Phosphatase 58 U/L (38-126); Anion Gap 15.1 mEq/L (5-15); Aspartate Amino Transferase 42 U/L (14-36); Bilirubin,Total 0.5 mg/dl (0.2-1.3); Blood Urea Nitrogen 19 mg/dl (7-17); Calcium 10.8 mg/dl (8.4-10.2); Carbon Dioxide 25 mmol/L (22.0-30.0); Creatinine Clearance Estimated 79 mL/min (50-200); Estimated Glomerular Filt Rate 48 ml/min (>60); GFR (African American) 58 ML/MIN (>60); Glucose 122 mg/dl (74-100); Lipase 58 U/L (23-300)
[2022-06-02 10:50] LABS: Albumin Level 4.9 g/dl (3.5-5.0); Albumin/Globulin Ratio 1.3 (1.1-1.8); Globulin 3.7 g/dL (1.3-3.2); Magnesium 1.6 mg/dl (1.6-2.3); Total Protein,Serum 8.6 g/dl (6.3-8.2)
--- NOTE | 2022-06-02 11:00 | PC.NURSE ---
pt to ct at this time
--- NOTE | 2022-06-02 11:15 | PC.NURSE ---
pt back from ct. no needs at this time
[2022-06-02 11:30] VITALS: BP 127/88; PULSE 112; O2SAT 95
--- NOTE | 2022-06-02 11:36 | PC.NURSE ---
rounded on pt, pt resting in bed, warm blanket given. Pt asked if she could urinate, pt states unable to at this time, reminded pt of urine specimen order. Pt reoriented to call light, hooked on to bedside. Will continue to monitor
[2022-06-02 12:00] VITALS: BP 112/72; PULSE 66; RESP 16; O2SAT 95
[2022-06-02 12:17] VITALS: BP 133/83; PULSE 75; RESP 16; O2SAT 97
--- NOTE | 2022-06-02 12:17 | PC.NURSE ---
contacted rad to check on status of CT results, states she will check on it
--- NOTE | 2022-06-02 12:23 | PC.NURSE ---
ER given pt preliminary CT report
--- NOTE | 2022-06-02 12:29 | PC.NURSE ---
Pt medicated per DEC. pt placed on test case developer while receiving potassium. pt provided with ovidio crackers and mary mist for po challenge per md request
[2022-06-02 12:42] LABS: POC Glucose,Bedside 116 (70-110)
--- NOTE | 2022-06-02 13:28 | PC.NURSE ---
potassium infusion still running. pt had a successful PO challenge. pt updated on POC. no needs at this time
[2022-06-02 14:04] LABS: Microscopic, Urine URINE MICROSCOPIC (MICROSCOPIC)
[2022-06-02 14:13] LABS: Appearance,Urine CLEAR (Clear); Bilirubin,Urine Negative (Negative); Blood, Urine Negative (Negative); Color,Urine YELLOW (Yellow); Glucose,Urine (UA) Negative (Negative); Ketones,Urine Negative (Negative); Leukocyte Esterase,Urine Negative (Negative); Nitrate,Urine Negative (Negative); Protein,Urine Negative (Negative); Specific Gravity, Urine 1.015 (1.005-1.030); Urobilinogen,Urine 0.2 EU/dl (0.2)
[2022-06-02 14:58] VITALS: BP 122/72; PULSE 74; RESP 17; TEMP 36.6; O2SAT 97
[2022-06-02 15:12] LABS: Bacteria,Urine 2+ /lpf
== END 2022-06-02 15:00 | disposition home or self-care (01) ==
PROVIDERS: Emergency Provider Emergency Medicine; PCP Emergency Medicine
DX: N83.202 Unspecified ovarian cyst, left side (principal); N83.201 Unspecified ovarian cyst, right side; R00.0 Tachycardia, unspecified; R53.1 Weakness; E87.6 Hypokalemia; R11.10 Vomiting, unspecified; Z20.822 Contact with and (suspected) exposure to COVID-19; I10 Essential (primary) hypertension; K21.9 Gastro-esophageal reflux disease without esophagitis; E78.5 Hyperlipidemia, unspecified; E11.9 Type 2 diabetes mellitus without complications; K43.9 Ventral hernia without obstruction or gangrene; M19.90 Unspecified osteoarthritis, unspecified site; F32.A Depression, unspecified; F41.9 Anxiety disorder, unspecified; Z79.82 Long term (current) use of aspirin; Z79.899 Other long term (current) drug therapy; Z88.6 Allergy status to analgesic agent; Z88.8 Allergy status to other drugs, medicaments and biological substances; Z87.891 Personal history of nicotine dependence; Z82.49 Family history of ischemic heart disease and other diseases of the circulatory system; Z83.438 Family history of other disorder of lipoprotein metabolism and other lipidemia; Z83.3 Family history of diabetes mellitus
CPT/HCPCS: 74177; 80053; 81001; 82962; 83690; 83735; 85025; 87086; 96374; 96375; 99285; C9803; J2405; Q9967; U0003; U0005

== ENCOUNTER → 2022-08-04 14:13 | Outpatient (CLI) | payer OTHER, SELFPAY ==
--- NOTE | 2022-08-04 14:14 | US_ITS ---
FINAL REPORT CLINICAL HISTORY: follow up to bilateral ovarian cyst COMPARISON: CT dated February 2022 FINDINGS: Transvaginal Ultrasound Technique: Transvaginal sonographic images of the pelvis were obtained. Findings: The uterus is surgically absent. The ovaries are somewhat enlarged. The right ovary measures up to 6.1 cm. The left ovary measures up to 4.2 cm. There is a possible complex cyst/cystic mass measuring 2.5 cm along the inferior right ovary. The right ovary is otherwise solid appearing. On the prior CT there or bilateral probable ovarian cysts. The left ovary is solid appearing. IMPRESSION: Somewhat enlarged ovaries of uncertain significance. Neoplasm cannot be excluded. Possible complex cyst/cystic mass along the inferior right ovary. Reviewed, Interpreted and Dictated by Ronny Stanley III, MD Transcribed by Brown Duque Authenticated and [facility]
== END ==
PROVIDERS: PCP Emergency Medicine; Visit Provider Obstetrics & Gynecology
DX: N83.209 Unspecified ovarian cyst, unspecified side (principal)
CPT/HCPCS: 76830

== ENCOUNTER 2022-09-04 10:29 | Emergency (ER) | payer OTHER, SELFPAY ==
[2022-09-04] VITALS (9 sets, daily range): BP systolic 110–147; BP diastolic 70–97; PULSE 70–81; RESP 16–20; TEMP 36.8; O2SAT 94–100; BMI 34.5
--- NOTE | 2022-09-04 | ECG_ITS ---
APPROVED REPORT Exam: Resting ECG HR:76 bpm ECG Measurements Heart Rate 76 AXES [place] 153 P 42 QRSd 87 QRS 58 QT 372 T 43 QTc 402 Conclusion SINUS RHYTHM NORMAL ECG UNCONFIRMED REPORT Electronically signed by : Sang Araiza MD 09/04/2022 21:10:15
--- NOTE | 2022-09-04 11:00 | XR_ITS ---
FINAL REPORT TECHNIQUE: Single view chest CLINICAL HISTORY: syncope COMPARISON: 03/27/2021 FINDINGS: A single view of the chest was obtained. The heart and mediastinum are within normal limits. The lungs are underinflated but clear. There is no pneumothorax. Osseous structures are unremarkable. IMPRESSION: No acute cardiopulmonary process. Reviewed, Interpreted and Dictated by Pool Alexandra MD Transcribed by Keiko Neely Authenticated and [facility]
--- NOTE | 2022-09-04 11:10 | HMH.EDDIZZ ---
Discharge Plan Disposition Patient Disposition: Home, Self-Care Condition: Good Prescriptions Prescriptions: No Action ketoconazole 2 % cream 1 applic TOPICAL BID 90 Days Qty: 60 2RF Rx Instructions: Apply to affected feet up to twice daily bupivacaine (PF) [Marcaine (PF)] 0.5 % (5 mg/mL) solution 5 mg IJ ONCE Qty: 1 0RF clobetasol 0.05 % lotion 1 applic TOPICAL BID 90 Days Qty: 118 1RF Rx Instructions: Apply to affected area twice daily ammonium lactate 12 % cream 12 applic TOPICAL DIRECTED Qty: 140 0RF atorvastatin 80 mg tablet See Rx Instructions .ROUTE .COMPLEX Qty: 90 0RF Dose Instruction: TAKE 1 TABLET BY MOUTH EVERY DAY Rx Instructions: TAKE 1 TABLET BY MOUTH EVERY DAY bupropion HCl 75 mg tablet 75 mg PO BID Qty: 180 3RF carvedilol 25 mg tablet See Rx Instructions .ROUTE .COMPLEX Qty: 180 0RF Dose Instruction: TAKE 1 TABLET BY MOUTH TWICE DAILY FOR BLOOD PRESSURE Rx Instructions: TAKE 1 TABLET BY MOUTH TWICE DAILY FOR BLOOD PRESSURE cetirizine 10 mg tablet 10 mg PO DAILY Qty: 90 0RF cholecalciferol (vitamin D3) 25 mcg (1,000 unit) capsule 25 mcg PO DAILY Qty: 90 0RF cholecalciferol (vitamin D3) 1,250 mcg (50,000 unit) capsule See Rx Instructions .ROUTE .COMPLEX Qty: 12 0RF Dose Instruction: TAKE ONE CAPSULE BY MOUTH WEEKLY Rx Instructions: TAKE ONE CAPSULE BY MOUTH WEEKLY cyclobenzaprine 10 mg tablet See Rx Instructions .ROUTE .COMPLEX Qty: 90 0RF Dose Instruction: TAKE 1 TABLET BY MOUTH AT BEDTIME FOR MUSCLE SPASMS Rx Instructions: TAKE 1 TABLET BY MOUTH AT BEDTIME FOR MUSCLE SPASMS fenofibrate 150 mg capsule See Rx Instructions .ROUTE .COMPLEX Qty: 90 0RF Dose Instruction: TAKE 1 CAPSULE BY MOUTH DAILY Rx Instructions: TAKE 1 CAPSULE BY MOUTH DAILY losartan 100 mg tablet 100 mg PO DAILY Qty: 30 2RF metformin 1,000 mg tablet See Rx Instructions .ROUTE .COMPLEX Qty: 180 0RF Dose Instruction: TAKE 1 TABLET BY MOUTH TWICE DAILY FOR DIABETES Rx Instructions: TAKE 1 TABLET BY MOUTH TWICE DAILY FOR DIABETES oxybutynin chloride 10 mg tablet extended release 24 hr 20 mg PO DAILY Qty: 180 0RF potassium chloride 20 mEq tablet,ER particles/crystals See Rx Instructions .ROUTE .COMPLEX Qty: 90 3RF Dose Instruction: TAKE 1 TABLET BY MOUTH EVERY DAY FOR POTASSIUM REPLACEMENT Rx Instructions: TAKE 1 TABLET BY MOUTH EVERY DAY FOR POTASSIUM REPLACEMENT quetiapine 200 mg tablet 200 mg PO HS Qty: 30 2RF ropinirole 1 mg tablet See Rx Instructions .ROUTE .COMPLEX Qty: 90 0RF Dose Instruction: TAKE 1 TABLET BY MOUTH AT BEDTIME FOR RESTLESS LEG SYNDROME Rx Instructions: TAKE 1 TABLET BY MOUTH AT BEDTIME FOR RESTLESS LEG SYNDROME Qelbree 200 mg capsule,extended release 24hr 200 mg PO .COMPLEX Qty: 60 1RF Rx Instructions: take 1 daily for 2 weeks; then increase to 2 capsules daily linaclotide 145 mcg capsule 145 mcg PO DAILY Qty: 30 2RF gabapentin 800 mg tablet 800 mg PO TID Qty: 90 2RF hydrocortisone acetate [Anusol-HC] 25 mg suppository 25 mg SC DAILY Qty: 12 0RF peg 3350-electrolytes [Golytely] 236-22.74-6.74 -5.86 gram recon soln 240 ml PO Q10M Qty: 4000 0RF Rx Instructions: until fecal effluent is clear (DME) Blood Glucose Test Strip See Rx Instructions .ROUTE .MEDSUPPLY Qty: 50 12RF Rx Instructions: As directed phentermine [Adipex-P] 37.5 mg tablet 37.5 mg PO DAILY Qty: 30 0RF Rx Instructions: must administer 30 minutes before or 1-2 hours after breakfast hydrocortisone [Anusol-HC] 2.5 % cream with perineal applicator 1 applic SC QD-BID PRN (Reason: hemorrhoids) Qty: 30 0RF aspirin 81 mg tablet,delayed release (DR/EC) See Rx Instructions .ROUTE .COMPLEX Qty: 90 0RF Dose Instruction: TAKE ONE TABLET BY MOUTH DAILY Rx
[2022-09-04 11:14] LABS: POC Glucose,Bedside 88 (70-110)
[2022-09-04 11:29] LABS: Basophils # 0.1 K/mm3 (0-0.2); Basophils % 0.8 % (0.1-2.0); Eosinophils # 0.1 K/mm3 (0.0-0.4); Eosinophils % 0.9 % (0.1-12.0); Hematocrit 40.2 % (37.0-47.0); Lymphocytes # 2.2 K/mm3 (0.7-4.5); Lymphocytes % 19.8 % (10-50); Mean Corpuscular HGB Conc 32.3 g/dL (31.8-35.4); Mean Corpuscular Hemoglobin 26.1 pg (27.0-31.2); Mean Corpuscular Volume 80.8 fl (81-99); Mean Platelet Volume 7.6 fl (7.4-10.4); Monocytes # 0.4 K/mm3 (0.1-1.0); Neutrophils # 8.4 K/mm3 (1.8-7.8); Neutrophils % 74.6 % (37.0-80.0); Platelet Count 508 K/mm3 (142-424); Red Blood Count 4.98 M/mm3 (4.20-5.40); Red Cell Distribution Width 13.5 % (11.5-17.5); White Blood Count 11.2 K/mm3 (4.8-10.8)
[2022-09-04 11:37] LABS: Alanine Aminotransferase 26 U/L (12-78); Albumin Level 4.5 g/dl (3.5-5.0); Albumin/Globulin Ratio 1.5 (1.1-1.8); Alkaline Phosphatase 64 U/L (38-126); Aspartate Amino Transferase 31 U/L (14-36); Bilirubin,Total 0.4 mg/dl (0.2-1.3); Blood Urea Nitrogen 30 mg/dl (7-17); Calcium 10.7 mg/dl (8.4-10.2); Carbon Dioxide 26 mmol/L (22.0-30.0); Chloride 100 mmol/L (98-107); Creatinine Clearance Estimated 84 mL/min (50-200); Estimated Glomerular Filt Rate 53 ml/min (>60); GFR (African American) 64 ML/MIN (>60); Globulin 3.1 g/dL (1.3-3.2); Glucose 97 mg/dl (74-100); Sodium 139 mmol/L (136-145); Total Protein,Serum 7.6 g/dl (6.3-8.2)
[2022-09-04 11:42] LABS: D-Dimer 0.51 ug/mL (0.0-0.5)
[2022-09-04 11:56] LABS: Troponin I < 0.01 ng/ml (0.00-0.034)
--- NOTE | 2022-09-04 12:42 | CT_ITS ---
FINAL REPORT TECHNIQUE: Axial imaging of the head was obtained without contrast. This study was performed with techniques to keep radiation doses as low as reasonably achievable, (ALARA). Individualized dose reduction techniques using automated exposure control or adjustment of mA and/or kV according to the patient''s size were employed. CLINICAL HISTORY: ams FINDINGS: The ventricles are normal in size. There is no evidence of hemorrhage. No masses are identified. No extra-axial fluid is seen. The sinuses are normal. There is no acute osseous abnormality. IMPRESSION: No acute intracranial abnormality. Reviewed, Interpreted and Dictated by Pool Alexandra MD Transcribed by Brown Duque Authenticated and [facility]
--- NOTE | 2022-09-04 12:42 | CT_ITS ---
FINAL REPORT TECHNIQUE: Thin section axial CT images were obtained from the lung apices to the upper abdomen. IV contrast was administered. MIP 3-D reformats were obtained. This study was performed with techniques to keep radiation doses as low as reasonably achievable (ALARA). Individualized dose reduction techniques using automated exposure control or adjustment of mA and/or kV according to the patient's size were employed. CLINICAL HISTORY: syncope COMPARISON: February 2018 FINDINGS: There is an indeterminate 2.1 cm nodule in the left lobe of the thyroid. The heart size is normal. There is no adenopathy. There is no filling defect to suggest PE. There is no aortic dissection. There is no pericardial effusion. There is mild dependent edema or atelectasis. There is no suspicious infiltrate or nodule. No pleural effusion. Limited images of the upper abdomen demonstrate a moderate hiatal hernia. The gallbladder is absent. IMPRESSION: No pulmonary embolism or aortic dissection. Mild dependent edema or atelectasis. Reviewed, Interpreted and Dictated by Pool Alexandra MD Transcribed by Brown Duque Authenticated and [facility]
[2022-09-04 13:33] LABS: NT Pro Brain Natriuretic Pep. 82.8 pg/mL (0-125)
[2022-09-04 13:33] LABS: Microscopic, Urine URINE MICROSCOPIC (MICROSCOPIC)
[2022-09-04 13:36] LABS: Appearance,Urine SL CLOUDY (Clear); Bilirubin,Urine Negative (Negative); Blood, Urine Negative (Negative); Color,Urine YELLOW (Yellow); Glucose,Urine (UA) Negative (Negative); Ketones,Urine TRACE (Negative); Leukocyte Esterase,Urine Negative (Negative); Nitrate,Urine Negative (Negative); Protein,Urine Negative (Negative); Specific Gravity, Urine >= 1.030 (1.005-1.030); Urobilinogen,Urine 0.2 EU/dl (0.2)
[2022-09-04 13:56] LABS: Bacteria,Urine 3+ /lpf; WBC,Urine Occasional #/hpf (0-3)
--- NOTE | 2022-09-04 14:29 | PC.NURSE ---
lab at the bedside to collect
--- NOTE | 2022-09-04 14:36 | PC.NURSE ---
Notified that CT reports were back and updated pt on POC
--- NOTE | 2022-09-04 14:57 | PC.NURSE ---
called RT for holter monitor
[2022-09-04 15:17] LABS: Troponin I < 0.01 ng/ml (0.00-0.034)
== END 2022-09-04 15:24 | disposition home or self-care (01) ==
PROVIDERS: Emergency Provider Emergency Medicine; PCP Emergency Medicine
DX: R55 Syncope and collapse (principal); R07.9 Chest pain, unspecified; R06.02 Shortness of breath; R11.10 Vomiting, unspecified; R53.1 Weakness; I49.9 Cardiac arrhythmia, unspecified; K21.9 Gastro-esophageal reflux disease without esophagitis; E11.9 Type 2 diabetes mellitus without complications; K64.9 Unspecified hemorrhoids; F32.A Depression, unspecified; F41.9 Anxiety disorder, unspecified; Z79.82 Long term (current) use of aspirin; Z79.84 Long term (current) use of oral hypoglycemic drugs; Z79.899 Other long term (current) drug therapy; Z88.6 Allergy status to analgesic agent; Z88.5 Allergy status to narcotic agent; Z88.8 Allergy status to other drugs, medicaments and biological substances; Z87.891 Personal history of nicotine dependence; Z82.49 Family history of ischemic heart disease and other diseases of the circulatory system; Z80.9 Family history of malignant neoplasm, unspecified; Z83.3 Family history of diabetes mellitus
CPT/HCPCS: 70450; 71045; 71275; 80053; 81001; 82962; 83880; 84484; 85025; 85378; 87086; 93005; 93225; 93226; 96360; 99285; Q9967

== ENCOUNTER 2022-09-07 10:29 | Day surgery (SDC) | payer OTHER, SELFPAY ==
[2022-09-07] VITALS (7 sets, daily range): BP systolic 128–168; BP diastolic 79–116; PULSE 99–111; RESP 16–18; TEMP 36.6–36.8; O2SAT 95–97; BMI 34.5
--- NOTE | 2022-09-07 10:56 | EXP.GEN.HP ---
HPI HPI HPI: Patient presents for colonoscopy.? I had seen her as a self-referral for hemorrhoids.? She has had problems with hemorrhoids for some time.? She previously had undergone colonoscopy with Dr. René Spence and had hemorrhoid banding.? She is unclear as to when this was performed.? She had seen Dr. Bautista in 2018 for this problem and this was able to be managed without surgical intervention.? She does describe some problems with chronic constipation.? She is recently been started on Linzess by her primary care provider, Dr. Pratt, and this has helped.? She describes her symptoms as itching and burning and occasional minimal blood with bowel movements.? I started her on topical therapy.? She states that she has had some improvement but continues to have some minor itching and bleeding. PFSH PFSH Medical History Cardiac dysrhythmia Chest pain Dyspnea Ex-smoker Surgical History History of colonoscopy Social History Smoking Status: Never smoker second hand exposure: No alcohol intake: never counseling provided: none substance use type: denies use current occupational status: employed Travel in the last 8 weeks: None household members: significant other housing: house number of children: 2 current occupation: [employer] current occupational exposures/hazards: No caffeine: Yes Meds Home Medications and Allergies Home Medications Medication Instructions Recorded Confirmed Type urea 40 % topical cream 1 applic topical BID Skin condition 07/30/20 07/28/22 History metoclopramide HCl 5 mg tablet 5 mg PO TID stomach 11/09/20 07/28/22 History diclofenac sodium 3 % topical gel 1 applicatio topical QID Pain 03/26/21 07/28/22 History ketoconazole 2 % topical cream 1 applic topical BID tinea 90 days 07/05/21 07/28/22 Rx #60 grams cetirizine 10 mg tablet 10 mg PO DAILY Allergy symptoms 05/10/22 07/28/22 Rx #90 tabs oxybutynin chloride 10 mg 20 mg PO DAILY BLADDER #180 tabs 05/10/22 07/28/22 Rx tablet,extended release 24 hr quetiapine 200 mg tablet 200 mg PO HS MOOD #30 tabs 05/10/22 07/28/22 Rx hydrocortisone 2.5 % topical cream 1 applic WI QD-BID PRN hemorrhoids 06/30/22 07/28/22 Rx with perineal applicator #30 grams (Anusol-HC) aspirin 81 mg tablet,delayed See Rx Instructions .Route 09/07/22 History release .COMPLEX . atorvastatin 80 mg tablet See Rx Instructions .Route 09/07/22 History .COMPLEX . bupropion HCl 75 mg tablet 75 mg PO BID . 09/07/22 History carvedilol 25 mg tablet See Rx Instructions .Route 09/07/22 History .COMPLEX bp cholecalciferol (vitamin D3) 1,250 See Rx Instructions .Route 09/07/22 History mcg (50,000 unit) capsule .COMPLEX . cholecalciferol (vitamin D3) 25 25 mcg PO DAILY . 09/07/22 History mcg (1,000 unit) capsule clobetasol 0.05 % lotion 1 applic topical BID . 09/07/22 History cyclobenzaprine 10 mg tablet See Rx Instructions .Route 09/07/22 History .COMPLEX . fenofibrate 150 mg capsule See Rx Instructions .Route 09/07/22 History .COMPLEX . gabapentin 800 mg tablet 800 mg PO TID \ 09/07/22 History hydrochlorothiazide 25 mg tablet See Rx Instructions .Route 09/07/22 History .COMPLEX . hydrocortisone acetate 25 mg 25 mg [place] DAILY . 09/07/22 History rectal suppository (Anusol-HC) linaclotide 145 mcg capsule 145 mcg PO DAILY . 09/07/22 History losartan 100 mg tablet 100 mg PO DAILY . 09/07/22 History metformin 1,000 mg tablet See Rx Instructions .Route 09/07/22 History .COMPLEX . omeprazole 40 mg capsule,delayed See Rx Instructions .Route 09/07/22 History release .COMPLEX . peg 3350-electrolytes 236 240 ml PO Q10M prep 09/07/22 History gram-22.74 gram-6.74 gram-5.86 gram solution (Golytely) potassium chloride 20 mEq See Rx Instructions .Route 09/07/22 History tablet,extended release(part/cryst) .COMPLE
--- NOTE | 2022-09-07 11:01 | EXP.ANES.CKL ---
PFSH PFS Medical History (Updated 09/07/22 @ 11:04 by Theodore Kothari RN) Cardiac dysrhythmia Chest pain Dyspnea Ex-smoker History of anxiety History of depression History of diabetes mellitus History of gastroesophageal reflux (GERD) Surgical History (Updated 09/07/22 @ 11:05 by Theodore Kothari RN) History of cholecystectomy History of colonoscopy History of hysterectomy History of removal of cyst History of tubal ligation Family History (Updated 09/07/22 @ 11:05 by Theodore Kothari RN) Other Family history of cancer Family history of cardiac disorder Family history of diabetes mellitus Social History (Updated 09/07/22 @ 11:06 by Theodore Kothari RN) Smoking Status: Never smoker second hand exposure: No alcohol intake: never counseling provided: none substance use type: denies use current occupational status: employed Travel in the last 8 weeks: None household members: significant other housing: house number of children: 2 current occupation: [employer] current occupational exposures/hazards: No caffeine: Yes [facility] Anesthesia Checklist Patient Identification Patient Identification: Arm Band and Verbal (Name & ) Structural Data Admitted From: Home Planned Operative Procedure/s: Colonoscopy Consent for Planned Operative Procedure(s) Verified: Yes NPO Status Verified Time NPO: 00:00 Additional verifications Anesthesia Reactions: No Hx Blood Transfusions: No Blood Transfusion Reaction: No Airway Assessment C-Spine Mobility Assessed: Yes TMJ Mobility Assessed: Yes Neurological Assessment Level of Consciousness: Awake Hx Seizures: No Numbness or tingling in extremities: Yes Anesthesia Plan Anesthesia Risk discussed: Yes Anesthesia Plan: Verified ASA Class: III Anesthesia Type: MAC
[2022-09-07 11:29] LABS: POC Glucose,Bedside 104 (70-110)
--- NOTE | 2022-09-07 11:43 | HMH.SCOPE ---
Procedure: Date: 09/07/22 Patient Date of :: 1975 Procedure Performed:: Flexible sigmoidoscopy Indications:: Patient presents for colonoscopy. I had seen her as a self-referral for hemorrhoids. She has had problems with hemorrhoids for some time. She previously had undergone colonoscopy with Dr. René Spence and had hemorrhoid banding. She is unclear as to when this was performed. She had seen Dr. Bautista in 2018 for this problem and this was able to be managed without surgical intervention. She does describe some problems with chronic constipation. She is recently been started on Linzess by her primary care provider, Dr. Pratt, and this has helped. She describes her symptoms as itching and burning and occasional minimal blood with bowel movements. I started her on topical therapy. She states that she has had some improvement but continues to have some minor itching and bleeding. Performing Provider:: Ronny Frias MD Referring Provider:: Hieu Pratt Sedation:: MAC sedation Procedure:: Patient was taken to endoscopy procedure room. She was positioned in lateral decubitus position. Adequate intravenous sedation was achieved. Digital examination was performed which revealed some circumferential prolapsing hemorrhoids. Variable stiffness Olympus colonoscope was inserted via the anus. Within the rectum there was solid stool balls. Retroflexion was performed which revealed circumferential internal hemorrhoids. Colonoscope was able to be advanced proximal to the solid stool balls at which time multiple additional solid stool was encountered. Colonoscope was able to be advanced further beyond this and even more solid stool was encountered occluding the lumen of the colon. Colonoscope was therefore withdrawn. Findings:: Essentially unprepped colon Circumferential internal hemorrhoids Recommendations:: She will need repeat colonoscopy with aggressive multi day bowel prep. Until her constipation issues are resolved she may have ongoing hemorrhoid problems and would fail any surgical management. Surgically she could benefit from possible PPH hemorrhoid stapling but she will need to have constipation issues managed initially. Complications:: None immediate Estimated blood obtained (mL): 0
--- NOTE | 2022-09-07 12:12 | SUR.PHASEII ---
spoke with SUNNY in Dr. Sorto office, she stated she would follow up with patient on next visit d/t it not being until October.
--- NOTE | 2022-09-07 12:16 | PC.NURSE ---
pt has not had bp medication. educated to restart meds as normal per md discharge paperwork.
== END 2022-09-07 12:19 | disposition home or self-care (01) ==
PROVIDERS: PCP Emergency Medicine; Visit Provider Surgery
PROC: 0DJD8ZZ Inspection of Lower Intestinal Tract, Via Natural or Artificial Opening Endoscopic (ICD-10-PCS; CPT 45330; principal; 2022-09-07 11:30)
DX: K64.8 Other hemorrhoids (principal); Z91.198 Patient's noncompliance with other medical treatment and regimen for other reason
CPT/HCPCS: 45378; 82962

== ENCOUNTER → 2022-09-22 16:00 | Outpatient (CLI) | payer OTHER, SELFPAY ==
[2022-09-24 09:20] LABS: CA 19-9 15 U/mL (0-35); Cancer Antigen (CA) 125 24.5 U/mL (0.0-38.1)
== END ==
PROVIDERS: PCP Emergency Medicine; Visit Provider Obstetrics & Gynecology
DX: N83.291 Other ovarian cyst, right side (principal)
CPT/HCPCS: 36415; 86316

== ENCOUNTER → 2022-11-09 01:25 | Outpatient (CLI) | payer OTHER, SELFPAY ==
[2022-11-09 18:07] LABS: Adenovirus,PCR Not Detected (NotDetected); Bordetella Pertussis Not Detected (NotDetected); Chlamydophila Pneumoniae, PCR Not Detected (NotDetected); Coronavirus 19, PCR Not Detected (NotDetected); Coronavirus 229E Not Detected (NotDetected); Coronavirus NL63 Not Detected (NotDetected); Coronavirus OC43 Not Detected (NotDetected); Coronovirus HKU1,PCR Not Detected (NotDetected); Human Metapneumovirus Not Detected (NotDetected); Influenza A, PCR Not Detected (NotDetected); Influenza AH1, 2009 Not Detected (NotDetected); Influenza AH1, PCR Not Detected (NotDetected); Influenza AH3,PCR Not Detected (NotDetected); Influenza B, PCR Not Detected (NotDetected); Mycoplasma Pneumoniae, PCR Not Detected (NotDetected); Parainfluenza 1, PCR Not Detected (NotDetected); Parainfluenza 2, PCR Not Detected (NotDetected); Parainfluenza 3, PCR Not Detected (NotDetected); Parainfluenza 4, PCR Not Detected (NotDetected); Respiratory Syncytial Virus Not Detected (NotDetected); Rhinovirus/Enterovirus Not Detected (NotDetected)
== END ==
PROVIDERS: PCP Student in an Organized Health Care Education/Training Program; Visit Provider Student in an Organized Health Care Education/Training Program
DX: R49.1 Aphonia (principal)
CPT/HCPCS: 87070; 87581; 87632; 87798; C9803; U0003; U0005

== ENCOUNTER 2022-11-17 10:36 | Day surgery (SDC) | payer OTHER, SELFPAY ==
--- NOTE | 2022-11-17 10:09 | EXP.GEN.HP ---
HPI HPI HPI: Patient presents for repeat colonoscopy.? I had seen her as a self-referral for hemorrhoids several months ago.? She has had problems with hemorrhoids for some time.? She previously had undergone colonoscopy with Dr. René Spence and had hemorrhoid banding.? She is unclear as to when this was performed.? She had seen Dr. Bautista in 2018 for this hemorrhoid problem and this was able to be managed without surgical intervention.? She does describe some problems with chronic constipation.? She has been started on Linzess by her primary care provider, Dr. Pratt, and this has helped.? She describes her symptoms as itching and burning and occasional minimal blood with bowel movements.? I started her on topical therapy.? I had performed attempted colonoscopy on 09/07/2022 and she had essentially an unprepped colon after taking the bowel prep as written. It was felt that she would need repeat colonoscopy with aggressive multi day bowel prep. However, until her constipation issues are resolved she may have ongoing hemorrhoid problems and would likely fail any surgical management. She could potentially benefit from PPH hemorrhoid stapling. Plan was made for repeat colonoscopy with aggressive multi day prep. [facility] Disclaimer: The information contained in this section may have been updated after the patient was seen, as this information can be updated by other users. Medical History (Updated 11/17/22 @ 11:02 by Ronny Frias MD) Attention deficit disorder (ADD) in adult Cardiac dysrhythmia Chest pain Dyspnea Edema Ex-smoker Generalized anxiety disorder Hemorrhoid History of anemia History of anxiety History of back pain History of depression History of diabetes mellitus History of gastroesophageal reflux (GERD) Hyperlipidemia Hypertension Irritable bowel syndrome (IBS) Kidney stone Major depressive disorder Sinus headache Sleep apnea Urinary tract infection Surgical History History of cholecystectomy History of colonoscopy History of hysterectomy History of removal of cyst History of tubal ligation Family History Other Family history of cancer Family history of cardiac disorder Family history of diabetes mellitus Social History Smoking Status: Former smoker pack-years: 12 second hand exposure: No alcohol intake: never counseling provided: none substance use type: denies use current occupational status: employed Travel in the last 8 weeks: None household members: significant other housing: house number of children: 2 current occupation: [employer] current occupational exposures/hazards: No caffeine: Yes Meds Home Medications and Allergies Home Medications Medication Instructions Recorded Confirmed Type oxybutynin chloride 10 mg 20 mg PO DAILY BLADDER #180 tabs 05/10/22 11/15/22 Rx tablet,extended release 24 hr aspirin 81 mg tablet,delayed 81 mg PO DAILY heart healthy 09/07/22 11/15/22 History release atorvastatin 80 mg tablet 80 mg PO DAILY Cholesterol 09/07/22 11/15/22 History carvedilol 25 mg tablet 25 mg PO BID bp 09/07/22 11/15/22 History clobetasol 0.05 % lotion 1 applic topical BID . 09/07/22 11/15/22 History hydrocortisone acetate 25 mg 25 mg SD DAILY . 09/07/22 11/15/22 History rectal suppository (Anusol-HC) losartan 100 mg tablet 100 mg PO DAILY . 09/07/22 11/15/22 History metformin 1,000 mg tablet 1,000 mg PO BID Diabetes 09/07/22 11/15/22 History omeprazole 40 mg capsule,delayed 40 mg PO DAILY Reflux/Acid reflux 09/07/22 11/15/22 History release ropinirole 1 mg tablet 1 mg PO HS restless leg 09/07/22 11/15/22 History cholecalciferol (vitamin D3) 1,250 50,000 unit PO WEEKLY . #14 caps 10/13/22 11/15/22 Rx mcg (50,000 unit) capsule fenofibrate 150 mg capsule 150 mg PO DAILY . #90 caps 10/23/22 0
[2022-11-17 10:50] VITALS: BP 141/103; PULSE 99; RESP 18; TEMP 36.6; O2SAT 99
--- NOTE | 2022-11-17 10:59 | P.PN_ITS ---
[facility] Disclaimer: The information contained in this section may have been updated after the patient was seen, as this information can be updated by other users. Medical History Attention deficit disorder (ADD) in adult Cardiac dysrhythmia Chest pain Dyspnea Edema Ex-smoker Generalized anxiety disorder Hemorrhoid History of anemia History of anxiety History of back pain History of depression History of diabetes mellitus History of gastroesophageal reflux (GERD) Hyperlipidemia Hypertension Irritable bowel syndrome (IBS) Kidney stone Major depressive disorder Sinus headache Sleep apnea Urinary tract infection Surgical History History of cholecystectomy History of colonoscopy History of hysterectomy History of removal of cyst History of tubal ligation Family History Other Family history of cancer Family history of cardiac disorder Family history of diabetes mellitus Social History Smoking Status: Former smoker pack-years: 12 second hand exposure: No alcohol intake: never counseling provided: none substance use type: denies use current occupational status: employed Travel in the last 8 weeks: None household members: significant other housing: house number of children: 2 current occupation: [employer] current occupational exposures/hazards: No caffeine: Yes [facility] Anesthesia Checklist Patient Identification Patient Identification: Arm Band Structural Data Admitted From: Home Planned Operative Procedure/s: colonoscopy Consent for Planned Operative Procedure(s) Verified: Yes Verified Documents: Surgical Consent and History and Physical NPO Status Verified Time NPO: 00:00 Additional verifications Anesthesia Reactions: No Hx Blood Transfusions: No Blood Transfusion Reaction: No Airway Assessment C-Spine Mobility Assessed: Yes TMJ Mobility Assessed: Yes Dentition: Good Dentition Neurological Assessment Level of Consciousness: Awake and Alert Anesthesia Plan Anesthesia Risk discussed: Yes Anesthesia Plan: Verified ASA Class: III Anesthesia Type: MAC
[2022-11-17 11:00] VITALS: BMI 36.2
[2022-11-17 11:01] VITALS: O2SAT 99
[2022-11-17 11:01] LABS: POC Glucose,Bedside 99 (70-110)
--- NOTE | 2022-11-17 11:52 | HMH.SCOPE ---
Procedure: Date: 11/17/22 Patient Date of :: 1975 Procedure Performed:: Total colonoscopy with polypectomy using cold snare Indications:: Patient presents for repeat colonoscopy.? I had seen her as a self-referral for hemorrhoids several months ago.? She is a 47-year-old who has had problems with hemorrhoids for some time.? She previously had undergone colonoscopy years ago with Dr. René Spence and had hemorrhoid banding.? She is unclear as to when this was performed.? She had seen Dr. Bautista in 2018 for this hemorrhoid problem and this was able to be managed without surgical intervention.? She does describe some problems with chronic constipation.? She had been started on Linzess by her primary care provider, Dr. Pratt, and this has helped.? She describes her symptoms as itching and burning and occasional minimal blood with bowel movements.? I started her on topical therapy.? I had performed attempted colonoscopy on 09/07/2022 and she had essentially an unprepped colon after taking the bowel prep as written.? It was felt that she would need repeat colonoscopy with aggressive multi day bowel prep.? However, until her constipation issues are resolved she may have ongoing hemorrhoid problems and would likely fail any surgical management.? She could potentially benefit from PPH hemorrhoid stapling.? Plan was made for repeat colonoscopy with aggressive multi day prep. Patient states that she feels this prep was more effective. Performing Provider:: Ronny Frias MD Referring Provider:: Hieu Pratt MD Sedation:: MAC sedation Procedure:: Patient history was obtained and appropriate physical examination was performed. Patient's medications and allergies were reviewed. Informed consent was obtained after explaining the benefits, alternatives, and risks of the procedure including, but not limited to, bleeding, perforation, missed lesions, and adverse reaction to anesthesia medications. Patient was transported to endoscopy procedure room. Patient was connected to monitoring devices. Throughout the procedure the patient's blood pressure, pulse, and oxygen saturations were monitored continuously. Patient identification and planned procedure were verified by the staff. Patient was positioned in lateral decubitus position. Digital anorectal exam was performed. Variable stiffness Olympus colonoscope was inserted and advanced under direct visualization to the cecum. Adequacy of the colonic preparation was noted. . The colonoscope was then slowly withdrawn while carefully examining the color, texture, anatomy, and integrity of the mucosoa circumferentially. Within the rectum retroflexion was performed. Colonoscope was then withdrawn. Findings:: Colonic preparation was rather poor. There was a large amount of particulate stool throughout the colon coating the bledsoe and a large amount of undigested vegetable matter. Massive high-volume transcolonoscopic irrigation and suctioning was performed with several liters resulting in only fair visualization. There were no obstructing masses. There was noted to be a polyp in the sigmoid colon which was removed with cold cutting snare. Within the rectum retroflexion was performed which revealed prolapsing nonbleeding internal hemorrhoids. Colonoscope was withdrawn. Impression: Poor colonic preparation with fair visualization despite large volume transcolonoscopic irrigation and suctioning Sigmoid polyp Prolapsing hemorrhoids Recommendations:: Patient's severe constipation seems to be quite a an issue. She may benefit from gastroenterology evaluation. Her chronic constipation is likely contributing to her hemorrhoid symptoms of rectal bleeding and occasional inflammation. It is unlikely that this would be amenable to treatment until constipation issues have resolved. Likely would need repeat colonoscopy within a year with extremely aggressive long-term bowel prep. Complications:: None immediately
[2022-11-17 11:55] VITALS: BP 102/62; PULSE 88; RESP 18; TEMP 36.4; O2SAT 94
[2022-11-17 12:05] VITALS: BP 113/71; PULSE 85; RESP 18; O2SAT 96
[2022-11-17 12:15] VITALS: BP 148/104; PULSE 90; RESP 18; O2SAT 97
[2022-11-17 12:30] VITALS: BP 161/99; PULSE 83; RESP 18; O2SAT 97
--- NOTE | 2022-11-17 12:32 | SUR.PHASEII ---
Spoke with Dr. Frias. in a meeting and is unable to complete discharge information for a while. Rec'd verbal order that pt can continue meds as per current med list at home, no changes.
--- NOTE | 2022-11-17 12:43 | SUR.PHASEII ---
offered patient a wheel chair to leave in but patient and family insisted she walk out because they want to go to the cafeteria to eat. pt ambulated out of post op area without issue.
== END 2022-11-17 12:43 | disposition home or self-care (01) ==
PROVIDERS: PCP Student in an Organized Health Care Education/Training Program; Visit Provider Surgery
PROC: 0DJD8ZZ Inspection of Lower Intestinal Tract, Via Natural or Artificial Opening Endoscopic (ICD-10-PCS; CPT 45385; principal; 2022-11-17 11:30)
DX: Z12.11 Encounter for screening for malignant neoplasm of colon (principal); K63.5 Polyp of colon; Z79.899 Other long term (current) drug therapy; E11.9 Type 2 diabetes mellitus without complications
CPT/HCPCS: 45385; 82962; J2704

== ENCOUNTER → 2022-11-27 23:30 | Outpatient (CLI) | payer OTHER, SELFPAY ==
[2022-11-27 19:06] LABS: Anion Gap 7.8 mEq/L (5-15); Blood Urea Nitrogen 17 mg/dl (7-17); Calcium 9.1 mg/dl (8.4-10.2); Carbon Dioxide 28 mmol/L (22.0-30.0); Chloride 107 mmol/L (98-107); Estimated Glomerular Filt Rate 67 ml/min (>60); GFR (African American) 81 ML/MIN (>60); Glucose 83 mg/dl (74-100); Potassium 3.8 mmoL/L (3.5-5.1); Sodium 139 mmol/L (136-145)
[2022-11-27 19:32] LABS: Hemoglobin A1C 7.5 % (4.0-6.0)
== END ==
PROVIDERS: PCP Emergency Medicine; Visit Provider Emergency Medicine
DX: E11.9 Type 2 diabetes mellitus without complications (principal); E66.01 Morbid (severe) obesity due to excess calories; Z68.35 Body mass index [BMI] 35.0-35.9, adult
CPT/HCPCS: 80048; 83036

== ENCOUNTER 2023-01-29 07:41 | Emergency (ER) | payer OTHER, SELFPAY ==
--- NOTE | 2023-01-29 07:41 | ECG_ITS ---
APPROVED REPORT Exam: Resting ECG HR:100 bpm ECG Measurements Heart Rate 100 AXES GA 155 P 33 QRSd 85 QRS 23 QT 324 T 31 QTc 381 Conclusion SINUS TACHYCARDIA Late R wave progression ABNORMAL RHYTHM ECG UNCONFIRMED REPORT Electronically signed by : Sang Araiza MD 01/29/2023 20:20:52
--- NOTE | 2023-01-29 07:44 | PC.NURSE ---
DR PALMA AT BEDSIDE
[2023-01-29 07:45] VITALS: BP 167/135; PULSE 100; RESP 17; TEMP 36.8; O2SAT 99; BMI 36.6
[2023-01-29 07:48] VITALS: BMI 36.6
[2023-01-29 08:00] VITALS: BP 162/119; PULSE 90; RESP 18; O2SAT 98
[2023-01-29 08:01] LABS: Basophils # 0.1 K/mm3 (0-0.2); Basophils % 0.6 % (0.1-2.0); Eosinophils # 0.1 K/mm3 (0.0-0.4); Eosinophils % 1.4 % (0.1-12.0); Hematocrit 40.9 % (37.0-47.0); Hemoglobin 13.5 g/dL (12.2-16.2); Lymphocytes # 1.8 K/mm3 (0.7-4.5); Lymphocytes % 20.8 % (10-50); Mean Corpuscular HGB Conc 32.9 g/dL (31.8-35.4); Mean Corpuscular Hemoglobin 26.5 pg (27.0-31.2); Mean Corpuscular Volume 80.6 fl (81-99); Mean Platelet Volume 7.5 fl (7.4-10.4); Monocytes # 0.4 K/mm3 (0.1-1.0); Monocytes % 4.8 % (1.7-9.3); Neutrophils # 6.4 K/mm3 (1.8-7.8); Neutrophils % 72.4 % (37.0-80.0); Platelet Count 361 K/mm3 (142-424); Red Blood Count 5.07 M/mm3 (4.20-5.40); Red Cell Distribution Width 14.8 % (11.5-17.5); White Blood Count 8.8 K/mm3 (4.8-10.8)
--- NOTE | 2023-01-29 08:01 | XR_ITS ---
FINAL REPORT CLINICAL HISTORY: CHEST PAIN COMPARISON: 09/04/2022 FINDINGS: A single portable view of the chest was obtained. The heart size and pulmonary vascularity are within normal limits. The mediastinum is within normal limits. There is left lung base opacity which may represent atelectasis or pneumonia. There is a moderate hiatal hernia. The bony thorax is intact. IMPRESSION: Left lung base atelectasis or pneumonia. Reviewed, Interpreted and Dictated by Ronny Stanley III, MD Transcribed by Radha Chappell Authenticated and [facility]
--- NOTE | 2023-01-29 08:02 | HMH.EDGENADL ---
Discharge Plan Disposition Patient Disposition: Home, Self-Care Prescriptions Prescriptions: New amoxicillin 500 mg capsule 1,000 mg PO TID 5 Days Qty: 30 0RF azithromycin 250 mg tablet See Rx Instructions .ROUTE .COMPLEX Qty: 6 0RF Rx Instructions: For 250 mg dose pack: take 500 mg today (day 1), then 250 mg for 4 days (days 2-5) benzonatate 100 mg capsule 100 mg PO TID PRN (Reason: cough) 5 Days Qty: 20 0RF ibuprofen 800 mg tablet 800 mg PO TID PRN (Reason: pain) 7 Days Qty: 20 0RF No Action cholecalciferol (vitamin D3) 1,250 mcg (50,000 unit) capsule 50,000 unit PO WEEKLY Qty: 14 0RF hydrocodone-acetaminophen 5-325 mg tablet 1 tab PO TID Qty: 90 0RF fenofibrate 150 mg capsule 150 mg PO DAILY Qty: 90 0RF cetirizine 10 mg tablet 10 mg PO DAILY Qty: 90 0RF Rx Instructions: TAKE ONE TABLET BY MOUTH DAILY losartan 100 mg tablet 100 mg PO DAILY Qty: 90 0RF oxybutynin chloride 10 mg tablet extended release 24hr 20 mg PO DAILY Qty: 180 0RF omeprazole 40 mg capsule,delayed release(DR/EC) See Rx Instructions .ROUTE .COMPLEX Qty: 90 0RF Dose Instruction: TAKE 1 CAPSULE BY MOUTH DAILY Rx Instructions: TAKE 1 CAPSULE BY MOUTH DAILY hydrochlorothiazide 25 mg tablet See Rx Instructions .ROUTE .COMPLEX Qty: 30 2RF Dose Instruction: TAKE 1 TABLET BY MOUTH DAILY FOR HIGH BLOOD PRESSURE Rx Instructions: TAKE 1 TABLET BY MOUTH DAILY FOR HIGH BLOOD PRESSURE trazodone 50 mg tablet 50 mg PO DAILY Qty: 30 3RF glipizide 10 mg tablet extended release 24hr 10 mg PO DAILY Qty: 90 0RF ropinirole 1 mg tablet See Rx Instructions .ROUTE .COMPLEX Qty: 90 0RF Dose Instruction: TAKE 1 TABLET BY MOUTH AT BEDTIME FOR RESTLESS LEG SYNDROME Rx Instructions: TAKE 1 TABLET BY MOUTH AT BEDTIME FOR RESTLESS LEG SYNDROME Linzess 145 mcg capsule See Rx Instructions .ROUTE .COMPLEX Qty: 30 2RF Dose Instruction: TAKE 1 CAPSULE BY MOUTH DAILY Rx Instructions: TAKE 1 CAPSULE BY MOUTH DAILY atorvastatin 80 mg tablet 80 mg PO DAILY Rx Instructions: TAKE 1 TABLET BY MOUTH EVERY DAY carvedilol 25 mg tablet 25 mg PO BID Rx Instructions: TAKE 1 TABLET BY MOUTH TWICE DAILY FOR BLOOD PRESSURE aspirin 81 mg tablet,delayed release (DR/EC) 81 mg PO DAILY Rx Instructions: TAKE ONE TABLET BY MOUTH DAILY hydrocortisone acetate [Anusol-HC] 25 mg suppository 25 mg [place] DAILY metformin 1,000 mg tablet 1,000 mg PO BID Rx Instructions: TAKE 1 TABLET BY MOUTH TWICE DAILY FOR DIABETES clobetasol 0.05 % lotion 1 applic TOPICAL BID Rx Instructions: Apply to affected area twice daily cyclobenzaprine 10 mg tablet 10 mg PO DAILY Rx Instructions: TAKE 1 TABLET BY MOUTH AT BEDTIME FOR MUSCLE SPASMS quetiapine [Seroquel] 200 mg tablet 200 mg PO HS potassium chloride 20 mEq tablet,ER particles/crystals 20 meq PO DAILY Rx Instructions: TAKE 1 TABLET BY MOUTH EVERY DAY FOR POTASSIUM REPLACEMENT gabapentin 800 mg tablet 800 mg PO TID bupropion HCl 75 mg tablet 75 mg PO BID fluticasone propionate [Flonase Allergy Relief] 50 mcg/actuation spray,suspension 1 spray intranasal DAILY Rx Instructions: administer into each nostril cholecalciferol (vitamin D3) 25 mcg (1,000 unit) capsule 25 mcg PO DAILY Qelbree 200 mg capsule,extended release 24hr 200 mg PO DAILY (DME) lancets [BD Ultra Fine Lancets] 33 gauge misc See Rx Instructions .Route Rx Instructions: As directed Referrals Follow up/Referrals: Richard Pratt MD [Primary Care Provider] - See instructions Activity Restrictions/Add. Instructions Additional Instructions/Restrictions: Return with worsening shortness of breath or other concerns otherwise follow-up with your primary care doctor within 1 week. Clinical Impress
--- NOTE | 2023-01-29 08:03 | PC.NURSE ---
DR LUQUE AT BEDSIDE
[2023-01-29 08:04] LABS: Chloride 104 mmol/L (98-107); Sodium 143 mmol/L (136-145)
[2023-01-29 08:07] LABS: Alanine Aminotransferase 22 U/L (12-78); Albumin/Globulin Ratio 1.3 (1.1-1.8); Alkaline Phosphatase 55 U/L (38-126); Aspartate Amino Transferase 22 U/L (14-36); Bilirubin,Total 0.4 mg/dl (0.2-1.3); Blood Urea Nitrogen 24 mg/dl (7-17); Carbon Dioxide 30 mmol/L (22.0-30.0); Creatinine Clearance Estimated 89 mL/min (50-200); Estimated Glomerular Filt Rate 53 ml/min (>60); GFR (African American) 64 ML/MIN (>60)
[2023-01-29 08:08] LABS: Calcium 10.1 mg/dl (8.4-10.2); Glucose 90 mg/dl (74-100)
--- NOTE | 2023-01-29 08:11 | PC.NURSE ---
rad at bedside for portable chest
[2023-01-29 08:23] LABS: Troponin I < 0.01 ng/ml (0.00-0.034)
[2023-01-29 08:30] VITALS: BP 153/101; PULSE 87; RESP 24; O2SAT 98
--- NOTE | 2023-01-29 08:38 | PC.NURSE ---
ROUNDED ON PT, WARM BLANKET PROVIDED. CALL LIGHT WITHIN REACH
--- NOTE | 2023-01-29 08:40 | PC.NURSE ---
DR LUQUE AT BEDSIDE TO UPDATE PT
[2023-01-29 08:43] LABS: Coronavirus 19, PCR Not Detected (NotDetected); Influenza A, PCR Not Detected (NotDetected); Influenza B, PCR Not Detected (NotDetected)
[2023-01-29 09:00] VITALS: BP 146/102; PULSE 73; RESP 21; O2SAT 93
--- NOTE | 2023-01-29 10:05 | PC.NURSE ---
ROUNDED ON PT, UPDATED AT THIS TIME. PILLOW GIVEN. NO FURTHER NEEDS AT THIS TIME
[2023-01-29 10:15] LABS: D-Dimer 0.81 ug/mL (0.0-0.5)
--- NOTE | 2023-01-29 10:24 | PC.NURSE ---
DR LUQUE AT BEDSIDE TO UPDATE PT ON POC
[2023-01-29 10:28] VITALS: BP 147/105; PULSE 90; RESP 18; TEMP 36.7; O2SAT 95
== END 2023-01-29 10:39 | disposition home or self-care (01) ==
PROVIDERS: Emergency Provider Student in an Organized Health Care Education/Training Program; PCP Emergency Medicine
DX: J18.8 Other pneumonia, unspecified organism (principal); R07.89 Other chest pain; R00.0 Tachycardia, unspecified; Z87.891 Personal history of nicotine dependence; R09.02 Hypoxemia; E66.9 Obesity, unspecified
CPT/HCPCS: 71045; 80053; 84484; 85025; 85378; 93005; 96374; 99285; C9803; U0003; U0005

== ENCOUNTER → 2023-02-13 23:27 | Outpatient (CLI) | payer OTHER, SELFPAY ==
[2023-02-13 19:50] LABS: T4 (Thyroxine) 7.6 ug/dl (5.53-11.0)
[2023-02-13 20:03] LABS: Thyroid Stimulating Hormone 2.51 uIU/mL (0.465-4.68)
[2023-02-13 20:36] LABS: Amphetamine/Metha Screen,Urine Negative ng/ml (<1000)
[2023-02-13 20:37] LABS: Benzodiazepines Screen,Urine Negative ng/ml (<200)
[2023-02-13 20:38] LABS: Barbiturates Screen,Urine Negative ng/ml (<200); Cocaine Screen,Urine Negative ng/ml (<300)
[2023-02-13 20:39] LABS: Opiate Screen,Urine Negative ng/ml (<300)
[2023-02-13 20:40] LABS: Methadone Screen,Urine Negative ng/ml (<300); Phencyclidine Screen,Urine Negative ng/ml (<25)
[2023-02-13 21:00] LABS: Cannabinoid Screen,Urine Positive ng/ml (<50)
== END ==
PROVIDERS: PCP Emergency Medicine; Visit Provider Emergency Medicine
DX: Z79.899 Other long term (current) drug therapy (principal); E11.69 Type 2 diabetes mellitus with other specified complication; E78.5 Hyperlipidemia, unspecified; Z79.84 Long term (current) use of oral hypoglycemic drugs
CPT/HCPCS: 80305; 84436; 84443

== ENCOUNTER 2023-02-17 06:18 | Emergency (ER) | payer OTHER, SELFPAY ==
[2023-02-17 06:20] VITALS: BP 133/92; PULSE 91; RESP 20; TEMP 36.7; O2SAT 96; BMI 37.8
--- NOTE | 2023-02-17 06:51 | HMH.EDGENADL ---
Discharge Plan Disposition Patient Disposition: Home, Self-Care Condition: Good Chief Complaint: Extremity Problem,Nontraumatic Prescriptions Prescriptions: No Action phentermine [Adipex-P] 37.5 mg tablet 37.5 mg PO DAILY Qty: 30 0RF Rx Instructions: must administer 30 minutes before or 1-2 hours after breakfast gabapentin 800 mg tablet 800 mg PO TID Qty: 90 1RF fenofibrate 150 mg capsule 150 mg PO DAILY Qty: 90 0RF cetirizine 10 mg tablet 10 mg PO DAILY Qty: 90 0RF Rx Instructions: TAKE ONE TABLET BY MOUTH DAILY losartan 100 mg tablet 100 mg PO DAILY Qty: 90 0RF oxybutynin chloride 10 mg tablet extended release 24hr 20 mg PO DAILY Qty: 180 0RF omeprazole 40 mg capsule,delayed release(DR/EC) See Rx Instructions .ROUTE .COMPLEX Qty: 90 0RF Dose Instruction: TAKE 1 CAPSULE BY MOUTH DAILY Rx Instructions: TAKE 1 CAPSULE BY MOUTH DAILY hydrochlorothiazide 25 mg tablet See Rx Instructions .ROUTE .COMPLEX Qty: 30 2RF Dose Instruction: TAKE 1 TABLET BY MOUTH DAILY FOR HIGH BLOOD PRESSURE Rx Instructions: TAKE 1 TABLET BY MOUTH DAILY FOR HIGH BLOOD PRESSURE trazodone 50 mg tablet 50 mg PO DAILY Qty: 30 3RF glipizide 10 mg tablet extended release 24hr 10 mg PO DAILY Qty: 90 0RF ropinirole 1 mg tablet See Rx Instructions .ROUTE .COMPLEX Qty: 90 0RF Dose Instruction: TAKE 1 TABLET BY MOUTH AT BEDTIME FOR RESTLESS LEG SYNDROME Rx Instructions: TAKE 1 TABLET BY MOUTH AT BEDTIME FOR RESTLESS LEG SYNDROME Linzess 145 mcg capsule See Rx Instructions .ROUTE .COMPLEX Qty: 30 2RF Dose Instruction: TAKE 1 CAPSULE BY MOUTH DAILY Rx Instructions: TAKE 1 CAPSULE BY MOUTH DAILY quetiapine [Seroquel] 200 mg tablet 200 mg PO HS Qty: 30 2RF cyclobenzaprine 10 mg tablet See Rx Instructions .ROUTE .COMPLEX Qty: 90 0RF Dose Instruction: TAKE 1 TABLET BY MOUTH AT BEDTIME FOR MUSCLE SPASMS Rx Instructions: TAKE 1 TABLET BY MOUTH AT BEDTIME FOR MUSCLE SPASMS hydrocodone-acetaminophen 5-325 mg tablet 1 tab PO TID Qty: 90 0RF atorvastatin 80 mg tablet 80 mg PO DAILY Rx Instructions: TAKE 1 TABLET BY MOUTH EVERY DAY carvedilol 25 mg tablet 25 mg PO BID Rx Instructions: TAKE 1 TABLET BY MOUTH TWICE DAILY FOR BLOOD PRESSURE aspirin 81 mg tablet,delayed release (DR/EC) 81 mg PO DAILY Rx Instructions: TAKE ONE TABLET BY MOUTH DAILY metformin 1,000 mg tablet 1,000 mg PO BID Rx Instructions: TAKE 1 TABLET BY MOUTH TWICE DAILY FOR DIABETES clobetasol 0.05 % lotion 1 applic TOPICAL BID Rx Instructions: Apply to affected area twice daily benzonatate 100 mg capsule 100 mg PO TID PRN (Reason: cough) 5 Days Qty: 20 0RF ibuprofen 800 mg tablet 800 mg PO TID PRN (Reason: pain) 7 Days Qty: 20 0RF potassium chloride 20 mEq tablet,ER particles/crystals 20 meq PO DAILY Rx Instructions: TAKE 1 TABLET BY MOUTH EVERY DAY FOR POTASSIUM REPLACEMENT bupropion HCl 75 mg tablet 75 mg PO BID fluticasone propionate [Flonase Allergy Relief] 50 mcg/actuation spray,suspension 1 spray intranasal DAILY Rx Instructions: administer into each nostril cholecalciferol (vitamin D3) 25 mcg (1,000 unit) capsule 25 mcg PO DAILY Qelbree 200 mg capsule,extended release 24hr 200 mg PO DAILY (DME) lancets [BD Ultra Fine Lancets] 33 gauge misc See Rx Instructions .Route Rx Instructions: As directed Referrals Follow up/Referrals: Terence (ED),Richard Wheeler MD [Primary Care Provider] - See instructions Activity Restrictions/Add. Instructions Additional Instructions/Restrictions: Home medication as directed. Clinical Impressions Clinical Impression: Acute low back pain with right-sided sciatica Discharge ED Provider: Will Meyer General Adult [facility] General Chief complaint: Extrem
[2023-02-17 06:59] VITALS: BP 140/90; PULSE 80; RESP 20; TEMP 36.7; O2SAT 96
== END 2023-02-17 07:07 | disposition home or self-care (01) ==
PROVIDERS: Emergency Provider Family Medicine; PCP Emergency Medicine
DX: M54.41 Lumbago with sciatica, right side (principal); Z87.891 Personal history of nicotine dependence; R22.43 Localized swelling, mass and lump, lower limb, bilateral
CPT/HCPCS: 99283; 99284

== ENCOUNTER → 2023-03-12 16:33 | Outpatient (CLI) | payer OTHER, SELFPAY ==
--- NOTE | 2023-03-12 16:37 | XR_ITS ---
PROCEDURE INFORMATION: Exam: XR Cervical Spine Exam date and time: 03/12/2023 4:38 PM Age: 47 years old Clinical indication: Neck pain; Patient HX: PT states hard time turning neck, no known injury; Additional info: Numbness left thumb TECHNIQUE: Imaging protocol: Radiologic exam of the cervical spine. Views: 6 or more views. COMPARISON: CR CS5 CERVICAL SPINE 4 OR 5 VIEWS 10/02/2016 4:32 PM FINDINGS: Bones/joints: Osseous alignment is normal. No acute fracture evident. There is [id number] multilevel uncovertebral spurring causing moderate narrowing of the right C5 and mild narrowing of the left C6 neural exit foramina. Soft tissues: Unremarkable. IMPRESSION: Moderate degenerative changes with narrowing of the right C5 and left C6 neural exit foramina as described
--- NOTE | 2023-03-12 16:37 | XR_ITS ---
PROCEDURE INFORMATION: Exam: XR Left Elbow Exam date and time: 03/12/2023 4:38 PM Age: 47 years old Clinical indication: Pain; Elbow; Left; Patient HX: No known injury; Additional info: Left elbow pain, tenderness TECHNIQUE: Imaging protocol: Radiologic exam of the left elbow. Views: 3 or more views. COMPARISON: CR XR HAND LT MIN 3V 11/08/2019 3:27 PM FINDINGS: Bones/joints: Normal. Soft tissues: Normal. IMPRESSION: No acute findings.
== END ==
PROVIDERS: PCP Emergency Medicine; Visit Provider Nurse Practitioner Family
DX: M54.2 Cervicalgia (principal); M21.6X1 Other acquired deformities of right foot; M21.6X2 Other acquired deformities of left foot; R20.0 Anesthesia of skin; M25.522 Pain in left elbow
CPT/HCPCS: 72052; 73080

== ENCOUNTER → 2023-03-27 12:40 | Outpatient (CLI) | payer OTHER, SELFPAY ==
--- NOTE | 2023-03-27 12:40 | MR_ITS ---
FINAL REPORT TECHNIQUE: Multiplanar MR without contrast CLINICAL HISTORY: mod deg changes with narrowing right c5 and c6 left arm pain x 2-3 weeks and left thumb numbness FINDINGS: Limited images of the posterior fossa are unremarkable. Vertebral bodies are normal height and alignment. Cervical spinal cord shows normal signal and contour. C2-3: No significant canal stenosis or neural foraminal narrowing. C3-4: Mild annular disc bulge with no significant canal stenosis or neural foraminal narrowing. C4-5: Moderate annular disc bulge with moderate right and mild left neural foraminal narrowing. C5-6: Moderate and nearly disc bulge with superior extension. Moderate central canal stenosis and moderate bilateral neural foraminal narrowing. C6-7: Mild to moderate annular disc bulge and mild bilateral neural foraminal narrowing. C7-T1: No significant canal stenosis or neural foraminal narrowing. T1-T2: Small left paracentral disc protrusion with superior extension. IMPRESSION: Multilevel degenerative changes with canal stenosis and neural foraminal narrowing most pronounced at C5-6. Reviewed, Interpreted and Dictated by Rehan Myers MD Transcribed by Nalini Olivares Authenticated and [facility]
== END ==
PROVIDERS: PCP Emergency Medicine; Visit Provider Nurse Practitioner Family
DX: R20.0 Anesthesia of skin (principal); M50.022 Cervical disc disorder at C5-C6 level with myelopathy
CPT/HCPCS: 72141; 76376

== ENCOUNTER 2023-03-27 14:10 | Outpatient (RCR) | payer OTHER, SELFPAY | END 2023-03-27 14:15 | disposition home or self-care (01) | LOC: OT 14:10 | PROVIDERS: PCP Emergency Medicine; Visit Provider Nurse Practitioner Family | DX: M25.522 Pain in left elbow (principal); M79.645 Pain in left finger(s); R20.2 Paresthesia of skin | CPT/HCPCS: 97165 ==

== ENCOUNTER → 2023-04-11 15:00 | Outpatient (CLI) | payer OTHER, SELFPAY ==
[2023-04-11 20:12] LABS: Creatinine,Urine Random 167 mg/dL (Not Estab.)
[2023-04-11 20:14] LABS: Microalbumin/Creatinine Ratio 5.6
[2023-04-11 20:16] LABS: Amphetamine/Metha Screen,Urine Positive ng/ml (<1000); Barbiturates Screen,Urine Negative ng/ml (<200)
[2023-04-11 20:17] LABS: Benzodiazepines Screen,Urine Negative ng/ml (<200)
[2023-04-11 20:18] LABS: Cannabinoid Screen,Urine Positive ng/ml (<50); Cocaine Screen,Urine Negative ng/ml (<300)
[2023-04-11 20:19] LABS: Methadone Screen,Urine Negative ng/ml (<300)
[2023-04-11 20:20] LABS: Opiate Screen,Urine Negative ng/ml (<300); Phencyclidine Screen,Urine Negative ng/ml (<25)
== END ==
PROVIDERS: PCP Emergency Medicine; Visit Provider Emergency Medicine
DX: Z79.899 Other long term (current) drug therapy (principal)
CPT/HCPCS: 80305; 82043; 82570

== ENCOUNTER → 2023-05-02 15:11 | Outpatient (POV) | payer OTHER, SELFPAY ==
--- NOTE | 2023-05-02 15:12 | EXP.PAIN.OV ---
HPI Data of Consult Patient: new to practice Consult date: 05/02/23 Requesting Physician: Felicitas Sebastian APRN Primary Care Provider: Richard Pratt MD Consult Narrative Reason for consult: Low back pain, bilateral leg pain History of present illness: Ms. Farfan is a 48 year old female who presents today as a new patient. She is a referral from Dr. Sang Saeed's office. Today she rates her pain a 7 out of 10. She states her pain is all in her low back with radiating symptoms into her bilateral lower extremities. She does state that the pain is worse in her right leg in comparison to her left. She states this has been going on for more than a couple of years unrelated to any specific trauma or injury. She does describe this as a sharp, throbbing sensation with numbness and tingling into her lower extremities. She does state the pain interferes with her ability perform activities of daily living such as cooking and cleaning. She does state that she cannot tolerate prolonged standing or walking due to the pain. She does state that she has not had any lumbar imaging in the past. Patient denies any previous back surgery or injective history. She has tried [id number] Tylenol and ibuprofen along with heat and ice and topicals with no additional relief. Patient denies any previous physical therapy or chiropractor therapy. She does have a heart history as well as history of diabetes. Patient is currently managed with gabapentin 800 mg 3 times a day and Deming 5 mg 3 times a day from Dr. Pratt's office. Patient denies any side effects from this medication. She does state the medication does help take the edge off. Her Wyatt is [phone]. Its been reviewed and appropriate. CC: Felicitas Sebastian APRN [facility] Disclaimer: The information contained in this section may have been updated after the patient was seen, as this information can be updated by other users. Medical History Attention deficit disorder (ADD) in adult Cardiac dysrhythmia Chest pain Dyspnea Edema left foot Ex-smoker Generalized anxiety disorder Hemorrhoid History of anemia History of anxiety History of back pain History of depression History of diabetes mellitus History of gastroesophageal reflux (GERD) Hyperlipidemia Hypertension Irritable bowel syndrome (IBS) Kidney stone Major depressive disorder Sinus headache Sleep apnea Urinary tract infection Surgical History History of cholecystectomy History of colonoscopy History of hysterectomy History of removal of cyst History of tubal ligation Family History Other Family history of cancer Family history of cardiac disorder Family history of diabetes mellitus Social History Smoking Status: Former smoker pack-years: 12 second hand exposure: No alcohol intake: never counseling provided: none substance use type: denies use current occupational status: employed Travel in the last 8 weeks: None household members: significant other housing: house number of children: 2 current occupation: [employer] current occupational exposures/hazards: No caffeine: Yes Review of Systems Review of Systems Review of systems:: pertinent systems reviewed and negative unless documented below Review of systems (narrative): Review of Systems: General: No recent weight changes, no fever, no sleep disturbances Respiratory: No cough, no shortness of air, no recurring pulmonary infections Cardiovascular/peripheral vascular: No chest pain, no palpitations, no edema, no shortness of breath Gastrointestinal: No new onset incontinence, normal bowel movements reported Genitourinary: No new onset incontinence Musculoskeletal: Low back pain, bilateral leg pain Psychiatric: [Normal mood/affect] Ne
[2023-05-02 15:27] VITALS: BP 165/97; PULSE 92; RESP 18; O2SAT 97; BMI 35.8
== END ==
PROVIDERS: PCP Emergency Medicine; Visit Provider Nurse Practitioner Family
DX: M54.16 Radiculopathy, lumbar region (principal); M54.50 Low back pain, unspecified; G89.29 Other chronic pain
CPT/HCPCS: 99202; G0463

== ENCOUNTER → 2023-05-02 15:49 | Outpatient (CLI) | payer OTHER, SELFPAY ==
--- NOTE | 2023-05-02 15:56 | XR_ITS ---
FINAL REPORT CLINICAL HISTORY: Low back pain FINDINGS: LUMBAR SPINE Five views demonstrate no acute fracture. There is mild anterolisthesis of L4 on L5. There is facet arthropathy in the lower lumbar spine. There are small vertebral osteophytes present. There is mild and moderate degenerative change. IMPRESSION: Mild and moderate degenerative change as stated above. Reviewed, Interpreted and Dictated by Ronny Stanley III, MD Transcribed by Pablo Seth Authenticated and . [facility]
== END ==
PROVIDERS: PCP Emergency Medicine; Visit Provider Nurse Practitioner Family
DX: M54.50 Low back pain, unspecified (principal)
CPT/HCPCS: 72110

== ENCOUNTER → 2023-05-16 16:08 | Outpatient (CLI) | payer OTHER, SELFPAY ==
[2023-05-21 03:37] LABS: D001-IgE D pteronyssinus <0.10 kU/L (Class 0); D002-IgE D farinae <0.10 kU/L (Class 0); E001-IgE Cat Dander <0.10 kU/L (Class 0); E005-IgE Dog Dander <0.10 kU/L (Class 0); E072-IgE Mouse Urine <0.10 kU/L (Class 0); G002-IgE Bermuda Grass <0.10 kU/L (Class 0); G006-IgE Timothy Grass <0.10 kU/L (Class 0); I006-IgE Cockroach, German <0.10 kU/L (Class 0); Immunoglobulin E, Total 61 IU/mL (6-495); M001-IgE Penicillium chrysogen <0.10 kU/L (Class 0); M002-IgE Cladosporium herbarum <0.10 kU/L (Class 0); M003-IgE Aspergillus fumigatus <0.10 kU/L (Class 0); M006-IgE Alternaria alternata <0.10 kU/L (Class 0); T001-IgE Maple/Box Elder <0.10 kU/L (Class 0); T003-IgE Common Silver Birch <0.10 kU/L (Class 0); T006-IgE Cedar, Mountain <0.10 kU/L (Class 0); T007-IgE Oak, White <0.10 kU/L (Class 0); T008-IgE Elm, American <0.10 kU/L (Class 0); T010-IgE Walnut <0.10 kU/L (Class 0); T011-IgE Maple Leaf Sycamore <0.10 kU/L (Class 0); T014-IgE Cottonwood <0.10 kU/L (Class 0); T015-IgE Ash, White <0.10 kU/L (Class 0); T022-IgE Pecan, Hickory <0.10 kU/L (Class 0); T070-IgE White Mulberry <0.10 kU/L (Class 0); W001-IgE Ragweed, Short <0.10 kU/L (Class 0); W011-IgE Thistle, Russian <0.10 kU/L (Class 0); W014-IgE Pigweed, Common <0.10 kU/L (Class 0); W018-IgE Sheep Sorrel <0.10 kU/L (Class 0)
== END ==
PROVIDERS: PCP Emergency Medicine; Visit Provider Nurse Practitioner
DX: H91.91 Unspecified hearing loss, right ear (principal); H93.11 Tinnitus, right ear; J33.8 Other polyp of sinus
CPT/HCPCS: 36415; 82785; 86003

== ENCOUNTER 2023-05-25 13:06 | Emergency (ER) | payer OTHER, SELFPAY ==
[2023-05-25 13:09] VITALS: BP 161/101; PULSE 97; RESP 18; TEMP 36.6; O2SAT 97; BMI 34.7
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
[2023-05-25 13:30] VITALS: BP 133/87; PULSE 96; O2SAT 97
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
--- NOTE | 2023-05-25 14:16 | PC.NURSE ---
Neosporin applied to abrasions, right forearm and left nasal bridge with bandaid application. Pt tolerated well.
[2023-05-25 14:17] VITALS: BP 143/96; PULSE 85; RESP 18; TEMP 36.6; O2SAT 94
== END 2023-05-25 14:18 | disposition home or self-care (01) ==
PROVIDERS: Emergency Provider Student in an Organized Health Care Education/Training Program; PCP Emergency Medicine
DX: S39.012A Strain of muscle, fascia and tendon of lower back, initial encounter (principal); S00.33XA Contusion of nose, initial encounter; S60.211A Contusion of right wrist, initial encounter; V47.5XXA Car driver injured in collision with fixed or stationary object in traffic accident, initial encounter; I10 Essential (primary) hypertension; E11.9 Type 2 diabetes mellitus without complications; E78.5 Hyperlipidemia, unspecified; F32.9 Major depressive disorder, single episode, unspecified; G47.30 Sleep apnea, unspecified; Z87.891 Personal history of nicotine dependence
CPT/HCPCS: 72131; 73110; 99284

== ENCOUNTER → 2023-08-28 08:54 | Outpatient (CLI) | payer OTHER, SELFPAY ==
[2023-08-28 21:15] LABS: Amphetamine/Metha Screen,Urine Negative ng/ml (<1000)
[2023-08-28 21:16] LABS: Benzodiazepines Screen,Urine Negative ng/ml (<200); Cannabinoid Screen,Urine Positive ng/ml (<50)
[2023-08-28 21:17] LABS: Cocaine Screen,Urine Negative ng/ml (<300)
[2023-08-28 21:18] LABS: Methadone Screen,Urine Negative ng/ml (<300); Opiate Screen,Urine Negative ng/ml (<300)
[2023-08-28 21:19] LABS: Phencyclidine Screen,Urine Negative ng/ml (<25)
[2023-08-28 22:31] LABS: Barbiturates Screen,Urine Negative ng/ml (<200)
== END ==
PROVIDERS: PCP Emergency Medicine; Visit Provider Emergency Medicine
DX: Z79.899 Other long term (current) drug therapy (principal)
CPT/HCPCS: 80305

== ENCOUNTER → 2023-10-08 13:25 | Outpatient (CLI) | payer OTHER, SELFPAY ==
[2023-10-08 18:35] LABS: Influenza A, PCR Not Detected (NotDetected); Influenza B, PCR Not Detected (NotDetected)
[2023-10-08 19:05] LABS: Coronavirus 19, PCR Detected (NotDetected)
== END ==
PROVIDERS: PCP Family Medicine; Visit Provider Family Medicine
DX: R52 Pain, unspecified (principal); U07.1 COVID-19
CPT/HCPCS: 87636

== ENCOUNTER 2023-10-24 07:06 | Outpatient (CLI) | payer OTHER, SELFPAY ==
[2023-10-24 22:33] LABS: Amphetamine/Metha Screen,Urine Negative ng/ml (<1000); Barbiturates Screen,Urine Negative ng/ml (<200); Benzodiazepines Screen,Urine Negative ng/ml (<200); Cannabinoid Screen,Urine Negative ng/ml (<50); Cocaine Screen,Urine Negative ng/ml (<300); Methadone Screen,Urine Negative ng/ml (<300); Opiate Screen,Urine Positive ng/ml (<300); Phencyclidine Screen,Urine Negative ng/ml (<25)
== END 2023-10-24 23:59 ==
LOC: LAB.DROPOF 10-25 07:07
PROVIDERS: PCP Family Medicine; Visit Provider Family Medicine
DX: Z79.899 Other long term (current) drug therapy (principal)
CPT/HCPCS: 80307

== ENCOUNTER 2023-10-24 12:56 | Outpatient (CLI) | payer OTHER, SELFPAY ==
--- NOTE | 2023-10-24 13:08 | XR_ITS ---
FINAL REPORT CLINICAL HISTORY: Shortness of breath, cough chest pain COMPARISON: 01/29/2023 FINDINGS: Two views of the chest were obtained. The heart size and pulmonary vascularity are within normal limits. There is a moderate hiatal hernia. There is mild bronchial wall thickening consistent with bronchitis. There is no pneumothorax. The bony thorax is intact. There are moderate degenerative changes in the thoracic spine. IMPRESSION: Bronchitis. Moderate hiatal hernia. Reviewed, Interpreted and Dictated by Ronny Stanley III, MD Transcribed by Sara Peace Authenticated and [facility]
== END 2023-10-24 23:59 ==
LOC: RAD 12:57
PROVIDERS: PCP Internal Medicine; Visit Provider Family Medicine
DX: B34.9 Viral infection, unspecified (principal); R06.02 Shortness of breath
CPT/HCPCS: 71046

== ENCOUNTER 2023-11-26 19:48 | Outpatient (CLI) | payer OTHER, SELFPAY ==
[2023-11-26 19:07] LABS: Basophils % 0.3 % (0.1-2.0); Eosinophils # 0.2 K/mm3 (0.0-0.4); Eosinophils % 2.1 % (0.1-12.0); Hematocrit 44.5 % (37.0-47.0); Hemoglobin 14.3 g/dL (12.2-16.2); Lymphocytes % 25.7 % (10-50); Mean Corpuscular Volume 84.4 fl (81-99); Mean Platelet Volume 8.8 fl (7.4-10.4); Monocytes # 0.4 K/mm3 (0.1-1.0); Monocytes % 4.7 % (1.7-9.3); Neutrophils # 5.3 K/mm3 (1.8-7.8); Neutrophils % 67.2 % (37.0-80.0); Platelet Count 453 K/mm3 (142-424); Red Blood Count 5.27 M/mm3 (4.20-5.40); Red Cell Distribution Width 13.5 % (11.5-17.5); White Blood Count 7.9 K/mm3 (4.8-10.8)
[2023-11-26 19:27] LABS: Hemoglobin A1C 5.4 % (4.0-6.0)
[2023-11-26 19:32] LABS: Alanine Aminotransferase 21 U/L (12-78); Albumin Level 4.4 g/dl (3.5-5.0); Albumin/Globulin Ratio 1.4 (1.1-1.8); Alkaline Phosphatase 88 U/L (38-126); Anion Gap 9.7 mEq/L (5-15); Aspartate Amino Transferase 23 U/L (14-36); Bilirubin,Total 0.6 mg/dl (0.2-1.3); Blood Urea Nitrogen 15 mg/dl (7-17); Calcium 9.9 mg/dl (8.4-10.2); Carbon Dioxide 28 mmol/L (22.0-30.0); Chloride 104 mmol/L (98-107); Chol/HDL Ratio 3.6 (1-3.5); Cholesterol 247 mg/dl (140-200); Estimated Glomerular Filt Rate 76 ml/min (>60); GFR (African American) 92 ML/MIN (>60); Globulin 3.2 g/dL (1.3-3.2); Glucose 94 mg/dl (74-100); HDL Cholesterol 68 mg/dl (40-60); Potassium 3.7 mmoL/L (3.5-5.1); Sodium 138 mmol/L (136-145); Total Protein,Serum 7.6 g/dl (6.3-8.2); Triglycerides 186 mg/dl (30-150); VLDL Cholesterol 37 mg/dL (0-40)
[2023-11-26 19:43] LABS: Direct LDL Cholesterol 106.52 mg/dL (100-129)
[2023-11-26 19:49] LABS: 25-OH Vitamin D, Total < 12.8 ng/mL (30-100)
[2023-11-26 20:02] LABS: Thyroid Stimulating Hormone 2.13 uIU/mL (0.465-4.68)
== END 2023-11-26 23:59 ==
LOC: LAB.DROPOF 19:48
PROVIDERS: PCP Family Medicine; Visit Provider Family Medicine
DX: E11.9 Type 2 diabetes mellitus without complications (principal); E55.9 Vitamin D deficiency, unspecified; Z68.33 Body mass index [BMI] 33.0-33.9, adult; Z79.84 Long term (current) use of oral hypoglycemic drugs; Z79.85 Long-term (current) use of injectable non-insulin antidiabetic drugs
CPT/HCPCS: 80053; 80061; 82306; 83036; 84443; 85025

== ENCOUNTER 2024-01-21 12:52 | Emergency (ER) | payer OTHER, SELFPAY ==
[2024-01-21 13:00] VITALS: BP 160/90; PULSE 77; RESP 18; TEMP 36.4; O2SAT 100; BMI 33.5
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
[2024-01-21 13:59] VITALS: BP 160/90; PULSE 77; RESP 18; TEMP 36.4; O2SAT 100
== END 2024-01-21 13:59 | disposition home or self-care (01) ==
PROVIDERS: Emergency Provider Nurse Practitioner Family; PCP Family Medicine
DX: S09.90XA Unspecified injury of head, initial encounter (principal); I10 Essential (primary) hypertension; E78.5 Hyperlipidemia, unspecified; E11.9 Type 2 diabetes mellitus without complications; K21.9 Gastro-esophageal reflux disease without esophagitis; Z79.84 Long term (current) use of oral hypoglycemic drugs; Z79.85 Long-term (current) use of injectable non-insulin antidiabetic drugs; W22.8XXA Striking against or struck by other objects, initial encounter
CPT/HCPCS: 99204; 99212; G0463

== ENCOUNTER 2024-01-24 21:20 | Emergency (ER) | payer OTHER, SELFPAY ==
[2024-01-24 21:21] VITALS: BP 177/117; PULSE 120; RESP 18; TEMP 36.9; O2SAT 95; BMI 33.5
[2024-01-24 21:34] VITALS: BP 189/118; PULSE 128; O2SAT 97
--- NOTE | 2024-01-24 21:37 | XR_ITS ---
PROCEDURE INFORMATION: Exam: XR Chest Exam date and time: 01/24/2024 9:41 PM Age: 48 years old Clinical indication: Cough and fever; Additional info: Cough, fever, bodyaches TECHNIQUE: Imaging protocol: Radiologic exam of the chest. Views: 1 view. COMPARISON: CR XR CHEST 2V 10/24/2023 1:08 PM FINDINGS: Lungs: There is consolidation in the right mid peripheral lung which is concerning for pneumonia. Pleural spaces: No large effusion or pneumothorax. Heart/Mediastinum: There is a moderate hiatal hernia. Bones/joints: No evidence of acute osseous abnormalities within the visualized portions of the thoracic spine and ribs. Osseous structures appear appropriate for patient age. IMPRESSION: There is consolidation in the right mid peripheral lung which is concerning for pneumonia.
[2024-01-24] MEDS: 0.9 % SODIUM CHLORIDE 1000ML 1,000 ML 999 ML IV (21:49)
[2024-01-24] MEDS: KETOROLAC 30MG/ML VIAL 15 MG IV (21:49)
[2024-01-24 21:53] LABS: Coronavirus 19, PCR Not Detected (NotDetected); Influenza A, PCR Not Detected (NotDetected); Influenza B, PCR Not Detected (NotDetected)
[2024-01-24 21:54] LABS: Basophils # 0.1 K/mm3 (0-0.2); Basophils % 0.5 % (0.1-2.0); Eosinophils % 0.3 % (0.1-12.0); Hematocrit 41.8 % (37.0-47.0); Hemoglobin 13.7 g/dL (12.2-16.2); Lymphocytes # 0.6 K/mm3 (0.7-4.5); Lymphocytes % 5.1 % (10-50); Mean Corpuscular HGB Conc 32.7 g/dL (31.8-35.4); Mean Corpuscular Hemoglobin 26.4 pg (27.0-31.2); Mean Corpuscular Volume 80.7 fl (81-99); Mean Platelet Volume 7.5 fl (7.4-10.4); Monocytes # 0.6 K/mm3 (0.1-1.0); Monocytes % 4.5 % (1.7-9.3); Neutrophils # 11.3 K/mm3 (1.8-7.8); Neutrophils % 89.6 % (37.0-80.0); Platelet Count 328 K/mm3 (142-424); Red Blood Count 5.18 M/mm3 (4.20-5.40); Red Cell Distribution Width 14.1 % (11.5-17.5); White Blood Count 12.6 K/mm3 (4.8-10.8)
[2024-01-24 21:58] LABS: MANUAL DIFFERENTIAL MANUAL DIFFERENTIAL (MANUAL DIFF)
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
[2024-01-24 22:03] LABS: Chloride 104 mmol/L (98-107); Potassium 3.2 mmoL/L (3.5-5.1); Sodium 139 mmol/L (136-145)
[2024-01-24 22:05] LABS: Alanine Aminotransferase 28 U/L (12-78); Alkaline Phosphatase 84 U/L (38-126); Aspartate Amino Transferase 32 U/L (14-36); Bilirubin,Total 0.4 mg/dl (0.2-1.3); Blood Urea Nitrogen 19 mg/dl (7-17); Creatinine Clearance Estimated 110 mL/min (50-200); Estimated Glomerular Filt Rate 76 ml/min (>60); GFR (African American) 92 ML/MIN (>60); Lactic Acid 1.5 mmol/L (0.7-2.1)
[2024-01-24 22:06] LABS: Albumin Level 4.2 g/dl (3.5-5.0); Albumin/Globulin Ratio 1.2 (1.1-1.8); Anion Gap 7.2 mEq/L (5-15); Carbon Dioxide 31 mmol/L (22.0-30.0); Chol/HDL Ratio 2.3 (1-3.5); Cholesterol 172 mg/dl (140-200); Globulin 3.4 g/dL (1.3-3.2); Glucose 126 mg/dl (74-100); HDL Cholesterol 76 mg/dl (40-60); Lipase 199 U/L (23-300); Total Protein,Serum 7.6 g/dl (6.3-8.2); Triglycerides 91 mg/dl (30-150); VLDL Cholesterol 18 mg/dL (0-40)
[2024-01-24 22:17] LABS: Direct LDL Cholesterol 66.64 mg/dL (100-129)
[2024-01-24 22:27] LABS: Acetone, Serum (Rapid) None Detected (None Detect)
[2024-01-24 22:37] LABS: Hemoglobin A1C 5.7 % (4.0-6.0)
[2024-01-24] MEDS: CEFTRIAXONE SODIUM 2 GM in 0.9 % SODIUM CHLORIDE 100 ML IV (22:37)
[2024-01-24 22:46] LABS: Troponin I < 0.01 ng/ml (0.00-0.034)
--- NOTE | 2024-01-24 22:48 | PC.NURSE ---
urine sent to lab
[2024-01-24 22:50] LABS: Microscopic, Urine URINE MICROSCOPIC (MICROSCOPIC)
[2024-01-24 22:52] VITALS: BP 190/106; PULSE 109; O2SAT 95
[2024-01-24 22:56] LABS: Eosinophils % 1 % (0-3); Lymphocytes % 9 % (10-50); Monocytes % 2 % (2-9); Neutrophils % 88 % (42-76); Platelet Estimate Normal; RBC Morphology Normal; Total Cells Counted 100
[2024-01-24 23:06] LABS: Appearance,Urine CLEAR (Clear); Bilirubin,Urine Negative (Negative); Blood, Urine Negative (Negative); Color,Urine YELLOW (Yellow); Glucose,Urine (UA) Negative (Negative); Ketones,Urine Negative (Negative); Leukocyte Esterase,Urine Negative (Negative); Nitrate,Urine Negative (Negative); PH,Urine 6.5 (5.0-8.5); Protein,Urine Negative (Negative); Specific Gravity, Urine 1.025 (1.005-1.030); Urobilinogen,Urine 0.2 EU/dl (0.2)
[2024-01-24 23:23] VITALS: BP 179/101; PULSE 89; RESP 18; TEMP 36.7; O2SAT 98
[2024-01-24 23:50] LABS: Squamous Epithelial Cell,Urine Occasional #/hpf (0-5)
--- NOTE | 2024-01-30 04:13 | PC.NURSE ---
no growth on prelim blood cx. no action at this time pending final results
== END 2024-01-24 23:25 | disposition home or self-care (01) ==
PROVIDERS: Emergency Provider Emergency Medicine; PCP Family Medicine
DX: J18.1 Lobar pneumonia, unspecified organism (principal); E87.6 Hypokalemia; R50.9 Fever, unspecified; R11.0 Nausea; R19.7 Diarrhea, unspecified; I10 Essential (primary) hypertension; E78.5 Hyperlipidemia, unspecified; E11.9 Type 2 diabetes mellitus without complications; Z79.84 Long term (current) use of oral hypoglycemic drugs; Z79.85 Long-term (current) use of injectable non-insulin antidiabetic drugs
CPT/HCPCS: 71045; 80053; 80061; 81001; 82009; 83036; 83605; 83690; 84484; 85007; 85025; 85378; 87040; 87636; 96365; 96375; 99285; J0696

== ENCOUNTER 2024-02-05 15:09 | Outpatient (CLI) | payer OTHER, SELFPAY ==
--- NOTE | 2024-02-05 15:09 | CA_ITS ---
APPROVED REPORT EXAM: Comprehensive 2D, Doppler, and color-flow Echocardiogram Director Of Payroll: Marina Branch RVT Ht: 5 ft 2 in Wt: 185lbs BSA: 1.85 BP: 176/92 mmHg Indications: DYSPENA, HTN 2D Dimensions LA Volume 47.00 mL LA Volume Index 25.41 mL/m2 (M/F) 16-34 M-Mode Dimensions RVDd 2.62 cm (0.9-2.6) LA Diam 3.85 cm (1.9-4.0) LVDd 3.81 cm (3.5-5.7) LVDs 2.33 cm (3.5-5.7) IVSd 0.99 cm (0.6-1.1) PWd 0.59 cm (0.6-1.1) EF (Teich) 70.00% FS 38.80% EDV (Teich) 62.30 mL TAPSE 1.70 (<1.7) ESV (Teich) 18.70 mL LV Diastology E Decel Time 150 (160-240 msec) E/A Ratio 1.1 Aortic Valve NEVILLE Index 1.47 cm2/m2 AoV Peak Sammy. 184.0 (50-130 cm/s) AO Peak GR. 13.50 mmHg AO Mean GR. 6.30 (<5 mmHg) AO VTI 29.1 (18-25 cm) NEVILLE (VTI) 2.77 (2.5-4.5 cm2) Mitral Valve MV E Max Sammy. 114.0 (40-130 cm/s) MV A Velocity 107.0 (40-130 cm/s) E/A Ratio 1.06 MV PHT 44.0 ms Pulmonary Valve PV Peak Velocity 99.0 (50-150 cm/s) Tricuspid Valve TR P. Velocity 282.00 cm/s RAP Estimate 10.00 mmHg RVSP 41.90 mmHg Left Ventricle The left ventricle is normal size. The left ventricular systolic function is normal. The left ventricular ejection fraction is within the normal range. There is increased LV wall thickness. There is normal LV segmental wall motion. The left ventricular diastolic function is normal. LVEF is 60%. Right Ventricle The right ventricle is mildly dilated. The right ventricular systolic function is normal. Atria The left atrium size is normal. The right atrium size is normal. There is no Doppler evidence of interatrial shunt. Aortic Valve The aortic valve opens well. There is no aortic valvular stenosis. No aortic regurgitation is present. Mitral Valve The mitral valve is normal in structure. No evidence of mitral valve stenosis. Mild mitral regurgitation. Tricuspid Valve The tricuspid valve leaflets are thin and pliable. Trace tricuspid regurgitation. There is insufficient TR jet to estimate RVSP. Pulmonic Valve The pulmonary valve is normal in structure. Trace pulmonic regurgitation. Great Vessels The aortic root is normal in size. The ascending aorta is not well visualized. IVC is normal in size and collapses >50% with inspiration. Pericardium There is no pericardial effusion. Other Information Study Quality: Fair Conclusion Normal biventricular systolic function. Mild RV dilation. Mild MR. Electronically signed by : Shonda Borges MD 02/10/2024 15:40:22
== END 2024-02-05 23:59 ==
LOC: RT 15:09
PROVIDERS: PCP Family Medicine; Visit Provider Family Medicine
DX: R06.02 Shortness of breath (principal); I10 Essential (primary) hypertension; R94.31 Abnormal electrocardiogram [ECG] [EKG]
CPT/HCPCS: 93306

== ENCOUNTER 2024-02-08 07:52 | Outpatient (CLI) | payer OTHER, SELFPAY ==
--- NOTE | 2024-02-08 07:53 | CA_ITS ---
FINAL REPORT TECHNIQUE: Grayscale, color Doppler and duplex Doppler ultrasound of the kidneys, aorta and renal arteries was performed. Multiple velocities were measured. CLINICAL HISTORY: HTN,DM,HLD COMPARISON: None FINDINGS: Aorta velocity: 108 cm/sec Right kidney: 11.4 cm. No evidence of hydronephrosis or mass. Right intrarenal RI: 0.41-0.66 Right renal artery velocity: 157 cm/sec. Right RAR (Renal artery-Aortic Ratio): 1.45 Left Kidney: 12.2 cm. No evidence of hydronephrosis or mass. Left intrarenal RI: 0.50-0.61 Left renal artery velocity: 178 cm/sec, borderline elevated. Left RAR (Renal Artery-Aortic Ratio): 1.64 IMPRESSION: No evidence of significant renal artery stenosis on the right. Borderline elevated velocity left renal artery origin it may be due to borderline stenosis. CT angiogram or postcontrast MR angiogram would be more sensitive for evaluation of possible renal artery stenosis. Reviewed, Interpreted and Dictated by Pool Alexandra MD Transcribed by Sara Peace Authenticated and . [facility]
--- NOTE | 2024-02-08 08:19 | MM_ITS ---
PROCEDURE INFORMATION: Exam: MG Bilateral Screening 3D Mammography Exam date and time: 02/08/2024 8:45 AM Age: 48 years old Clinical indication: Screening examination TECHNIQUE: Imaging protocol: Bilateral Screening tomosynthesis and 2D mammography including computer-aided detection (CAD) when performed. COMPARISON: 1. MG MM DIG MAMM DX UNILAT LT CAD 01/11/2022 2:29 PM 2. MG MM DIG SCREENING MAMM BI W/CAD 12/23/2021 1:55 PM FINDINGS: MAMMOGRAPHY: Breast composition: There are scattered areas of fibroglandular density. Mass: None. Architectural distortion: None. Calcifications: No suspicious calcifications. Asymmetric density: None. Skin thickening: None. Axillary adenopathy: None. IMPRESSION: No mammographic evidence of malignancy. Annual screening is recommended unless otherwise clinically indicated. ASSESSMENT: BI-RADS Category 1: Negative
--- NOTE | 2024-02-08 08:19 | US_ITS ---
FINAL REPORT CLINICAL HISTORY: Hypertension COMPARISON: None FINDINGS: RENAL ULTRASOUND Ultrasound images of the kidneys were obtained. Limited images of the liver parenchyma demonstrates normal echogenicity. The right kidney measures 11.8 cm in length. It is normal echogenicity. There is no hydronephrosis. There is a prominent pelvis. The left kidney measures 11.8 cm in length. There is no hydronephrosis. There is a 5 mm echogenic shadowing focus probably representing nonobstructing stone. There is a 9 mm cyst noted. IMPRESSION: Probable nonobstructing stone on the left. Left renal cyst. No evidence of hydronephrosis. Reviewed, Interpreted and Dictated by Pool Alexandra MD Transcribed by Sara Peace Authenticated and [facility]
== END 2024-02-08 23:59 | disposition home or self-care (01) ==
LOC: RT 07:53
PROVIDERS: PCP Family Medicine; Visit Provider Family Medicine
DX: I10 Essential (primary) hypertension (principal); Z12.31 Encounter for screening mammogram for malignant neoplasm of breast; N64.4 Mastodynia
CPT/HCPCS: 76770; 77063; 77067; 93976

== ENCOUNTER 2024-08-18 13:30 | Emergency (ER) | payer OTHER, SELFPAY ==
[2024-08-18 13:31] VITALS: BP 134/70; PULSE 96; RESP 18; TEMP 37.1; O2SAT 98; BMI 34.7
[2024-08-18 14:00] VITALS: BP 115/83; PULSE 81; O2SAT 98
--- NOTE | 2024-08-18 14:07 | XR_ITS ---
PROCEDURE INFORMATION: Exam: XR Left Knee Exam date and time: 08/18/2024 2:03 PM Age: 49 years old Clinical indication: Pain; Knee; Left; Additional info: Knee pain TECHNIQUE: Imaging protocol: Radiologic exam of the left knee. Views: 3 views. COMPARISON: CR XR FOOT WT BEARING LT 3V 11/18/2020 2:33 PM FINDINGS: Bones/joints: There is tricompartmental osteoarthritis of the knee with loss of joint space, subchondral sclerosis, and productive changes. The osseous structures are intact, with no signs of acute fracture, dislocation, or malalignment. There is no evidence of abnormal bone density or destructive lesions. Soft tissues: The soft tissues appear within normal limits. IMPRESSION: At the time of imaging, the study shows no acute osseous abnormalities but does reveal signs of tricompartmental osteoarthritis.
--- NOTE | 2024-08-18 14:07 | XR_ITS ---
PROCEDURE INFORMATION: Exam: XR Left Tibia and Fibula Exam date and time: 08/18/2024 2:03 PM Age: 49 years old Clinical indication: Pain; Lower leg; Left; Additional info: Fall left leg pain TECHNIQUE: Imaging protocol: Radiologic exam of the left tibia and fibula. Views: 2 views. COMPARISON: CR XR ANKLE LT 2V 08/18/2024 2:03 PM FINDINGS: Bones/joints: Lucency through the lateral malleolar tip is described on the radiographic examination of the ankle. The osseous structures are intact, with no signs of acute fracture, dislocation, or malalignment. Age-related degenerative changes are observed. There is no evidence of abnormal bone density or destructive lesions. Soft tissues: The soft tissues appear within normal limits. IMPRESSION: At the time of imaging, the study shows no acute osseous abnormalities but does reveal signs of age-related degenerative changes.
--- NOTE | 2024-08-18 14:08 | XR_ITS ---
PROCEDURE INFORMATION: Exam: XR Left Hip Exam date and time: 08/18/2024 2:02 PM Age: 49 years old Clinical indication: Hip pain and pelvic pain; Left hip; Additional info: Left hip pain after fall TECHNIQUE: Imaging protocol: Radiologic exam of the left hip. Views: 2 or 3 views hip with pelvis when performed. COMPARISON: CT ABDOMEN PELVIS W CON 06/02/2022 10:50 AM FINDINGS: Bones/joints: There is mild osteoarthritis of the hips with joint space narrowing, productive changes, and subchondral sclerosis. There are partially visualized degenerative changes of the sacroiliac joints and lumbar spine as well as some degenerative disease of the pubic symphysis. The osseous structures are intact, with no signs of acute fracture, dislocation, or malalignment. Age-related degenerative changes are observed. There is no evidence of abnormal bone density or destructive lesions. Soft tissues: The soft tissues appear within normal limits. Intraperitoneal space: There are surgical clips in the pelvis. IMPRESSION: At the time of imaging, the study shows no acute osseous abnormalities but does reveal signs of age-related degenerative changes.
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
--- NOTE | 2024-08-18 14:14 | XR_ITS ---
PROCEDURE INFORMATION: Exam: XR Left Ankle Exam date and time: 08/18/2024 2:03 PM Age: 49 years old Clinical indication: Pain; Ankle; Left; Additional info: Left ankle pain TECHNIQUE: Imaging protocol: Radiologic exam of the left ankle. Views: 1 or 2 views. COMPARISON: CR XR TIBIA FIBULA LT 2V 08/18/2024 2:03 PM FINDINGS: Bones/joints: There is a lucency through the lateral malleolar tip and correlation for point tenderness to rule out nondisplaced fracture is suggested. There is diffuse degenerative disease of the visualized osseous structures. Soft tissues: There is diffuse soft tissue swelling. IMPRESSION: There is a lucency through the lateral malleolar tip and correlation for point tenderness to rule out nondisplaced fracture is suggested.
[2024-08-18] MEDS: IBUPROFEN 400 MG TABLET PO (14:21)
[2024-08-18 14:30] VITALS: BP 117/81; PULSE 76; O2SAT 98
[2024-08-18 15:00] VITALS: BP 119/80; PULSE 74; O2SAT 96
[2024-08-18 15:57] VITALS: BP 93/58; PULSE 80; RESP 18; TEMP 37.1; O2SAT 97
== END 2024-08-18 16:03 | disposition home or self-care (01) ==
PROVIDERS: Emergency Provider Student in an Organized Health Care Education/Training Program; PCP Family Medicine
DX: M79.605 Pain in left leg (principal); M25.572 Pain in left ankle and joints of left foot; M25.552 Pain in left hip; M25.562 Pain in left knee; T14.8XXA Other injury of unspecified body region, initial encounter; W01.0XXA Fall on same level from slipping, tripping and stumbling without subsequent striking against object, initial encounter; Y93.K1 Activity, walking an animal; Y92.89 Other specified places as the place of occurrence of the external cause
CPT/HCPCS: 73502; 73562; 73590; 73600; 99283

== ENCOUNTER 2024-08-21 13:19 | Outpatient (CLI) | payer OTHER, SELFPAY ==
--- NOTE | 2024-08-21 13:24 | XR_ITS ---
PROCEDURE INFORMATION: Exam: XR Right Foot Complete; Alignment Exam date and time: 08/21/2024 1:46 PM Age: 49 years old Clinical indication: Pain; Foot; Right; Additional info: Foot pain TECHNIQUE: Imaging protocol: Radiologic exam of the right foot. Views: 3 or more views. COMPARISON: CR XR FOOT WT BEARING RT 3V 08/21/2024 1:46 PM FINDINGS: Bones/joints: No acute fracture. Mild degenerative changes of first MTP joint. Mild degenerative changes of mid foot. No dislocation. Plantar calcaneal enthesophyte. Soft tissues: Unremarkable. IMPRESSION: No fracture. If pain persists, consider nonemergent MRI for further evaluation.
--- NOTE | 2024-08-21 13:24 | XR_ITS ---
PROCEDURE INFORMATION: Exam: XR Right Ankle Exam date and time: 08/21/2024 1:46 PM Age: 49 years old Clinical indication: Pain; Ankle; Right; Additional info: Ankle pain TECHNIQUE: Imaging protocol: Radiologic exam of the right ankle. Views: 3 or more views. COMPARISON: No relevant prior studies available. FINDINGS: Bones/joints: No acute fracture. No dislocation. No significant joint effusion. Soft tissues: Unremarkable. IMPRESSION: No fracture. If pain persists, consider nonemergent MRI for further evaluation.
--- NOTE | 2024-08-21 13:24 | XR_ITS ---
PROCEDURE INFORMATION: Exam: XR Left Foot Complete; Alignment Exam date and time: 08/21/2024 1:46 PM Age: 49 years old Clinical indication: Pain; Foot; Left; Additional info: Foot pain TECHNIQUE: Imaging protocol: Radiologic exam of the left foot. Views: 3 or more views. COMPARISON: CR XR FOOT WT BEARING LT 3V 08/21/2024 1:46 PM FINDINGS: Bones/joints: No acute fracture. Severe degenerative changes of first MTP joint. Mild degenerative changes of mid foot. No dislocation. Plantar calcaneal enthesophyte. Soft tissues: Unremarkable. IMPRESSION: No fracture. If pain persists, consider nonemergent MRI for further evaluation.
--- NOTE | 2024-08-21 13:24 | XR_ITS ---
PROCEDURE INFORMATION: Exam: XR Left Ankle Exam date and time: 08/21/2024 1:46 PM Age: 49 years old Clinical indication: Patient HX: Left ankle pain; Additional info: Foot pain TECHNIQUE: Imaging protocol: Radiologic exam of the left ankle. Views: 3 or more views. COMPARISON: CR XR ANKLE LT 2V 08/18/2024 2:03 PM FINDINGS: Bones/joints: No acute fracture. No dislocation. No significant joint effusion. Soft tissues: Unremarkable. IMPRESSION: No fracture. If pain persists, consider nonemergent MRI for further evaluation.
== END 2024-08-21 23:59 | disposition home or self-care (01) ==
LOC: RAD 13:20
PROVIDERS: PCP Family Medicine; Visit Provider Podiatrist
DX: M79.671 Pain in right foot (principal); M79.672 Pain in left foot
CPT/HCPCS: 73610; 73630

== ENCOUNTER 2024-10-03 15:38 | Outpatient (CLI) | payer OTHER, SELFPAY ==
--- NOTE | 2024-10-03 15:39 | MR_ITS ---
PROCEDURE INFORMATION: Exam: MR Right Lower Extremity Joint Without and With Contrast; Ankle Exam date and time: 10/03/2024 4:00 PM Age: 49 years old Clinical indication: Patient HX: Pain in right ankle; Additional info: Evaluate for possible tear/ligament injury TECHNIQUE: Imaging protocol: Magnetic resonance imaging of the right lower extremity without and with contrast. Exam focused on the ankle. Contrast material: PROHANCE; Contrast volume: 18 ml; Contrast route: IV; COMPARISON: CR XR ANKLE WT BEARING RT MIN 3V 08/21/2024 1:46 PM FINDINGS: Limitations: Motion artifact. Bones/joints: No bone abnormalities. Articular cartilage is normal. No joint effusion. No abnormal bone marrow enhancement. LIGAMENTS: Distal tibiofibular syndesmosis: No tear. Anterior talofibular ligament: No tear. Posterior talofibular ligament: No tear. Calcaneofibular ligament: No tear. Deltoid ligament complex: No tear. TENDONS: Flexor tendons of foot: Flexor digitorum longus is frayed and probably torn posterior to the medial malleolus. No other tears or signal abnormalities. Tibialis posterior tendon: No tear or fluid. Peroneal tendons: No tear or fluid. Extensor tendons of foot: No tears or fluid. Tibialis anterior tendon: No tear or fluid. Achilles tendon: No tear, thickening, or adjacent fluid. Tarsal canal (Sinus tarsi): Normal signal of the fat. Tarsal tunnel: No signal abnormalities. Soft tissues: No soft tissue masses or significant swelling. No enhancing lesions. Plantar fascia: No masses or edema. IMPRESSION: 1. Flexor digitorum longus is greater torn posterior to the medial malleolus in the right ankle. 2. No other ligament or tendon abnormalities in the right ankle. No enhancing lesions.
[2024-10-03 16:10] LABS: Blood Urea Nitrogen 13 mg/dl (7-17); Estimated Glomerular Filt Rate 76 ml/min (>60); GFR (African American) 92 ML/MIN (>60)
[2024-10-03] MEDS: GADOTERIDOL INJ 20ML SYRINGE 18 ML IV (17:39)
[2024-10-03] MEDS: SODIUM CHLORIDE 0.9% 10ML SYR (RAD ONLY) 10 ML IV (17:39)
== END 2024-10-03 23:59 | disposition home or self-care (01) ==
LOC: RAD 15:39
PROVIDERS: PCP Family Medicine; Visit Provider Nurse Practitioner
DX: M25.571 Pain in right ankle and joints of right foot (principal); M25.471 Effusion, right ankle; S93.491A Sprain of other ligament of right ankle, initial encounter
CPT/HCPCS: 73723; 82565; 84520; A9576

== ENCOUNTER 2024-12-04 09:04 | Outpatient (RCR) | payer OTHER, SELFPAY ==
--- NOTE | 2024-12-04 13:28 | HMH.PTOPEV ---
PT Outpatient Evaluation Rehab PT Outpatient Evaluation Start: 12/04/24 09:06 Freq: Status: Active Protocol: Document 12/04/24 09:07 BERTRAND (Rec: 12/04/24 13:28 BERTRAND [id number]) E-signed By Felicitas Tejada, PT Outpatient Therapy Subjective History Subjective History P is a 49 y/o female who reports to PT for R ankle sprain and FDL tear shown on MRI on 10/03/24 treated conservatively. Pt states the injury occurred when she fell on 08/18/24 while walking her dog. Pt reports initial R medial/lateral ankle pain and swelling so she went to the ED . Pt reports she wore a walking boot for a couple months and was told last week she could transition to a supportive tennis shoe with an ankle brace. Pt states the ankle brace irritates her foot but she is wearing it to work . Pt reports continued pain of the medial malleoli, medial arch and lateral malleoli. Pt denies numbness/tingling. Pt reports pain is aggravated by prolonged standing, walking, and stair climbing. Pt reports she has 3 flights of stairs at home to traverse. Pt states she uses a cane as needed due to altered balance since the injury. Pt reports she fell last night due to tripping over her fan, denies serious injuries from the fall but does report slight increase in soreness. Pt reports she returns to Dr. Phan on 01/05 for her next follow-up visit. Work: [employer] Medical History: Hypertension, Hyperlipidemia, GERD, Type II Diabetes, Depression, Anxiety , IBS, Hx of R ankle surgery in 2016 Edema: Figure 8 cm- 52 cm New diagnosis of cancer in past 12 No months? Chief Complaint Pain,Swelling Symptom Type Ache,Sharp,Dull Symptoms Relieved By Rest/Positioning,OTC Meds Symptoms Aggravated By Standing,Physical Activity, Walking Current Functional Limitations Housework,Standing,Recreation Activity,Walking,Stairs, Balance Symptom Description Constant but Variable Level of pain today (0-10) 3 Pain scale - at its best (0-10) 3 Pain scale - at its worst (0-10) 8 Ankle/Foot Eval Gait Observation General Gait Pattern Observation Antalgic Gait Assistive Device Ambulation Assistive Device None Palpation Tenderness right Ankle/Foot Palpation Findings Tenderness Ankle/Foot Palpation Overall Comment medial arch, med/lat malleoli ROM Ankle/Foot Dorsiflexion w/Knee Extended 12 Active Range Motion (degrees) Ankle/Foot Plantar Flexion Active Range 40 of Motion (degrees) Ankle/Foot Eversion Active Range of 12 Motion (degrees) Ankle/Foot Inversion Active Range of 12 Motion (degrees) Great Toe Metatarsophalangeal Extension 45 Active Range Motion (degrees) Great Toe Metatarsophalangeal Flexion 25 Active Range of Motion (degrees) MMT Ankle Dorsiflexion Strength Grade 4 Good Ankle Plantarflexion Strength Grade 4 Good Foot Eversion Strength Grade 4- Good- Foot Inversion Strength Grade 4- Good- Special Tests Foot/Heel Tap/Percussion Test Negative Right Lower Extremity Functional Index Activities Today, do you or would you have any difficulty at all with: a.Any of your usual work, housework or No difficulty school activities b. Your usual hobbies, recreational or A little bit of difficulty sporting activities c. Getting into or out of the bath No difficulty d. Walking between rooms Moderate difficulty e. Putting on your shoes or socks A little bit of difficulty f. Squatting No difficulty g. Lifting an object, like a bag of Quite a bit of difficulty groceries from the floor h. Performing light activities around Moderate difficulty your home i. Performing heavy activities around A little bit of difficulty your home j. Getting into or out of a car No difficulty k. Walking 2 blocks No difficulty l. Walking a mile No difficulty m. Going up or down 10 stairs (about 1 A little bit of difficulty flight of stairs) n. Standing for 1 hour No difficulty o. Sitting for 1 hour Moderate difficulty p. Running on even ground No difficulty q. Running on uneven ground No difficulty r. Making sharp turns while running fast A little bit of difficulty s. Hopping A little bit of difficulty t. Rolling over in bed Moderate difficulty LEFI Score Lower Extremity Functional Index Score 63 Outpatient Therapy Assessment Impairments Problems/Impairmments Palpation Tenderness,Impaired Range of Motion,Impaired Strength,Impaired Walking, Impaired Standing,Impaired Stair Climbing,Impaired Incline Stepping,Impaired Stepping on Uneven Surface, Impaired Recreational Activities,Impaired Balance, Increased Edema,Subjective C/O Pain,Impaired Self Care/Self Management Prognosis Rehab Potential Good Clinical Impression Consistent with Diagnosis Yes Short Term Goals Number of Weeks 3 Increase Strength Yes: Improve R ankle Inv/Ev MMT to 4-/5 grossly Improve Gait Pattern without Assistive Yes: non-antalgic to decrease Device fall risk Decrease Subjective C/O Pain Yes: Improve pain at worst to 6/10 to improve overall QOL Improve Self Care/Self Management Yes Patient to be Ind w/ HEP Yes [employer] 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 Goals Number of Weeks 6 Increase Range of Motion Yes: Improve R ankle AROM Inv to at least 25, Ev to 15, PF to 45 Increase Strength Yes: Improve R ankle MMT to 4+ /5 grossly to assist with function Improve Tolerance to Work Activities Yes: report ability to work a full shift with pain 4/10 or less Improve LEFI Score Yes: Improve score to at least 68/80 to improve overall QOL Decrease Subjective C/O Pain Yes: Improve pain at worst to 4/10 to improve overall QOL Outpatient Therapy Plan of Care Treatment Plan May Include Therapeutic Exercise Including Home Yes Exercise Program Manual Therapy Techniques Yes Neuromuscular Re-education Yes Therapeutic Activities to Return to Yes Previous Functional/Work Level Gait Training Yes ADL/Self Care Education Yes Dry Needling Yes Thermal Modalities Yes Electrical Stimulation Yes Ultrasound/Phonophoresis Yes Iontophoresis Yes Orthotics/Bracing/Splinting Yes Vasopneumatic Compression Pump Yes Massage Yes Manual Lymphatic Drainage Yes Eval/Re-Eval Yes Frequency Times per week 2 Duration Number of Weeks 4-6 Addendums This patient is a candidate for social No or vocational rehab? Patient/Guardian verbally acknowledges Yes understanding of treatment program and consents to further treatment? Patient/Guardian verbally acknowledges Yes understanding of diagnosis, prognosis and goals for treatment? Eval Complexity PT Charges 79992 - Moderate Complexity Shoulder/Elbow Eval Shoulder Objective Measurements Elbow Objective Measurements PHYSICIAN CERTIFICATION: I certify the specified therapy services for Ena Farfan are required, authorized, and reviewed every 30 days.
== END 2024-12-04 23:59 | disposition home or self-care (01) ==
LOC: PT 09:04
PROVIDERS: Visit Provider Podiatrist
DX: M25.571 Pain in right ankle and joints of right foot (principal); M25.471 Effusion, right ankle; S93.491D Sprain of other ligament of right ankle, subsequent encounter
CPT/HCPCS: 97110; 97163

== ENCOUNTER 2024-12-30 08:49 | Emergency (ER) | payer OTHER, SELFPAY ==
[2024-12-30] VITALS (17 sets, daily range): BP systolic 87–128; BP diastolic 57–89; PULSE 64–87; RESP 13–23; TEMP 36.6–36.7; O2SAT 91–98; BMI 33.6
--- NOTE | 2024-12-30 09:12 | PC.NURSE ---
pt given a warm blanket and has no other needs at this time; call light within reach
[2024-12-30 09:13] LABS: Coronavirus 19, PCR Not Detected (NotDetected); Influenza B, PCR Not Detected (NotDetected)
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
--- NOTE | 2024-12-30 09:29 | XR_ITS ---
FINAL REPORT TECHNIQUE: Chest PA & Lateral CLINICAL HISTORY: productive cough, body aches x 3 days COMPARISON: 10/24/2023 FINDINGS: 2 views of the chest were performed. The lungs are underinflated. Mild cardiomegaly is present. A moderate-sized hiatal hernia is noted. There is mild bilateral peribronchial wall thickening, that may represent bronchitis. There are no pleural effusions. There is no pneumothorax. The bony thorax appears intact. IMPRESSION: Mild bilateral peribronchial wall thickening, may represent bronchitis. Reviewed, Interpreted and Dictated by Pool Alexandra MD Transcribed by Ifeoma Steen Authenticated and [facility]
[2024-12-30 09:40] LABS: Strep Scrn Group A (Rapid) Negative (Negative)
[2024-12-30] MEDS: ONDANSETRON 4MG ODT 4 MG SL (09:40)
[2024-12-30 09:54] LABS: Influenza A, PCR Detected (NotDetected)
--- NOTE | 2024-12-30 10:05 | PC.NURSE ---
pt given another blanket and given some water; okay'd by Dr. Wei
--- NOTE | 2024-12-30 10:15 | PC.NURSE ---
PT MOVED TO ROOM 7 FROM 12 DUE TO PT BP, TOAN RAMIREZ AT BS DOING LEONARDO AND GIVING PT A BOLUS AT THIS TIME
[2024-12-30] MEDS: 0.9 % SODIUM CHLORIDE 1000ML 1,000 ML 999 ML IV (10:35)
[2024-12-30 10:49] LABS: Basophils % 0.8 % (0.1-2.0); Eosinophils # 0.2 K/mm3 (0.0-0.4); Eosinophils % 3.8 % (0.1-12.0); Hematocrit 34.9 % (37.0-47.0); Hemoglobin 11.4 g/dL (12.2-16.2); Lymphocytes # 1.4 K/mm3 (0.7-4.5); Lymphocytes % 35.4 % (10-50); Mean Corpuscular HGB Conc 32.7 g/dL (31.8-35.4); Mean Corpuscular Hemoglobin 25.7 pg (27.0-31.2); Mean Corpuscular Volume 78.8 fl (81-99); Mean Platelet Volume 9.5 fl (7.4-10.4); Monocytes # 0.5 K/mm3 (0.1-1.0); Neutrophils # 1.8 K/mm3 (1.8-7.8); Neutrophils % 46.5 % (37.0-80.0); Platelet Count 298 K/mm3 (142-424); Red Blood Count 4.43 M/mm3 (4.20-5.40); Red Cell Distribution Width 13.9 % (11.5-17.5); White Blood Count 3.9 K/mm3 (4.8-10.8)
[2024-12-30 10:54] LABS: Alanine Aminotransferase 26 U/L (12-78); Albumin Level 3.9 g/dl (3.5-5.0); Albumin/Globulin Ratio 1.3 (1.1-1.8); Alkaline Phosphatase 48 U/L (38-126); Anion Gap 10.1 mEq/L (5-15); Aspartate Amino Transferase 34 U/L (14-36); Bilirubin,Total 0.4 mg/dl (0.2-1.3); Blood Urea Nitrogen 21 mg/dl (7-17); Calcium 9.2 mg/dl (8.4-10.2); Carbon Dioxide 28 mmol/L (22.0-30.0); Chloride 102 mmol/L (98-107); Creatinine Clearance Estimated 97 mL/min (50-200); Estimated Glomerular Filt Rate 66 ml/min (>60); GFR (African American) 80 ML/MIN (>60); Globulin 3.1 g/dL (1.3-3.2); Glucose 146 mg/dl (74-100); Potassium 3.1 mmoL/L (3.5-5.1); Sodium 137 mmol/L (136-145)
[2024-12-30] MEDS: POTASSIUM CHLORIDE 20MEQ TAB 60 MEQ PO (11:08)
--- NOTE | 2024-12-30 11:16 | PC.NURSE ---
1st set of blood cultures sent to lab
--- NOTE | 2024-12-30 11:18 | PC.NURSE ---
Lab/RT aware of VBG order
[2024-12-30 11:27] LABS: Lactate Venous 1.4 mmol/L (0.4-2.0); VBG Base Excess -3.4 mmol/L (-2.4-2.3); VBG HCO3 21.9 mmol/L (23-30); VBG Oxygen Saturation 91.3 % (50-70); VBG PCO2 38.8 mmol/L (35-51); VBG PH 7.37 mmol/L (7.31-7.41); VBG Total CO2 23.1 mmol/L (23-27)
[2024-12-30 11:44] LABS: HIV Combo NEGATIVE (Negative)
[2024-12-30 11:52] LABS: Hepatitis C Ab Qual. W/ RFX NEGATIVE (Negative)
== END 2024-12-30 13:00 | disposition home or self-care (01) ==
PROVIDERS: Emergency Provider Emergency Medicine; PCP Family Medicine
DX: J10.1 Influenza due to other identified influenza virus with other respiratory manifestations (principal); R11.2 Nausea with vomiting, unspecified; M79.10 Myalgia, unspecified site; R06.02 Shortness of breath; R09.3 Abnormal sputum; Z20.828 Contact with and (suspected) exposure to other viral communicable diseases
CPT/HCPCS: 71046; 80053; 82803; 85025; 86803; 87040; 87389; 87430; 87636; 96360; 96361; 99283; J7030; Q0162

== ENCOUNTER 2025-01-21 15:00 | Outpatient (CLI) | payer OTHER, SELFPAY ==
[2025-01-21 18:13] LABS: Basophils % 0.3 % (0.1-2.0); Eosinophils % 0.3 % (0.1-12.0); Hematocrit 37.9 % (37.0-47.0); Hemoglobin 12.4 g/dL (12.2-16.2); Lymphocytes # 1.9 K/mm3 (0.7-4.5); Lymphocytes % 32.3 % (10-50); Mean Corpuscular HGB Conc 32.7 g/dL (31.8-35.4); Mean Corpuscular Hemoglobin 25.9 pg (27.0-31.2); Mean Corpuscular Volume 79.3 fl (81-99); Mean Platelet Volume 9.4 fl (7.4-10.4); Monocytes # 0.4 K/mm3 (0.1-1.0); Monocytes % 7.2 % (1.7-9.3); Neutrophils # 3.6 K/mm3 (1.8-7.8); Neutrophils % 59.7 % (37.0-80.0); Platelet Count 407 K/mm3 (142-424); Red Blood Count 4.78 M/mm3 (4.20-5.40); Red Cell Distribution Width 14.6 % (11.5-17.5)
[2025-01-21 20:10] LABS: Albumin Level 4.3 g/dl (3.5-5.0); Chloride 99 mmol/L (98-107)
[2025-01-21 20:11] LABS: Potassium 3.6 mmoL/L (3.5-5.1); Sodium 138 mmol/L (136-145)
[2025-01-21 20:13] LABS: Alanine Aminotransferase 26 U/L (12-78); Anion Gap 10.6 mEq/L (5-15); Aspartate Amino Transferase 27 U/L (14-36); Blood Urea Nitrogen 20 mg/dl (7-17); Carbon Dioxide 32 mmol/L (22.0-30.0); Estimated Glomerular Filt Rate 66 ml/min (>60); GFR (African American) 80 ML/MIN (>60)
[2025-01-21 20:14] LABS: Albumin/Globulin Ratio 1.3 (1.1-1.8); Alkaline Phosphatase 83 U/L (38-126); Bilirubin,Total 0.5 mg/dl (0.2-1.3); Calcium 10.1 mg/dl (8.4-10.2); Chol/HDL Ratio 3.4 (1-3.5); Cholesterol 237 mg/dl (140-200); Globulin 3.4 g/dL (1.3-3.2); Glucose 86 mg/dl (74-100); HDL Cholesterol 70 mg/dl (40-60); Total Protein,Serum 7.7 g/dl (6.3-8.2); Triglycerides 131 mg/dl (30-150); VLDL Cholesterol 26 mg/dL (0-40)
[2025-01-21 20:25] LABS: Direct LDL Cholesterol 117.55 mg/dL (100-129)
[2025-01-21 20:37] LABS: 25-OH Vitamin D, Total 37.3 ng/mL (30-100)
[2025-01-21 20:45] LABS: Thyroid Stimulating Hormone 1.26 uIU/mL (0.465-4.68)
[2025-01-21 22:00] LABS: Hemoglobin A1C 5.7 % (4.0-6.0)
== END 2025-01-21 23:59 | disposition home or self-care (01) ==
LOC: LAB.DROPOF 01-22 09:47
PROVIDERS: PCP Family Medicine; Visit Provider Family Medicine
DX: E11.42 Type 2 diabetes mellitus with diabetic polyneuropathy (principal); I10 Essential (primary) hypertension; E78.49 Other hyperlipidemia; E55.9 Vitamin D deficiency, unspecified
CPT/HCPCS: 80053; 80061; 82306; 83036; 84443; 85025

== ENCOUNTER 2025-05-28 21:14 | Outpatient (CLI) | payer OTHER, SELFPAY | END 2025-05-28 23:59 | disposition home or self-care (01) | LOC: LAB.DROPOF 21:16 | PROVIDERS: PCP Family Medicine; Visit Provider Family Medicine | DX: E11.42 Type 2 diabetes mellitus with diabetic polyneuropathy (principal) | CPT/HCPCS: 82043; 82570 ==

== ENCOUNTER 2025-06-18 09:12 | Outpatient (CLI) | payer OTHER, SELFPAY ==
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
[2025-06-18 15:59] LABS: Chloride 103 mmol/L (98-107); Potassium 3.8 mmoL/L (3.5-5.1); Sodium 135 mmol/L (136-145)
[2025-06-18 16:02] LABS: Anion Gap 9.8 mEq/L (5-15); Blood Urea Nitrogen 14 mg/dl (7-17); Carbon Dioxide 26 mmol/L (22.0-30.0); Creatinine,Serum 0.60 mg/dl (0.52-1.04); Estimated Glomerular Filt Rate 105 ml/min (>60); GFR (African American) 127 ML/MIN (>60)
[2025-06-18 16:03] LABS: Calcium 9.7 mg/dl (8.4-10.2); Glucose 97 mg/dl (74-100)
== END 2025-06-18 23:59 | disposition home or self-care (01) ==
LOC: RAD 09:13
PROVIDERS: PCP Family Medicine; Visit Provider Podiatrist
DX: M19.071 Primary osteoarthritis, right ankle and foot (principal); S99.921A Unspecified injury of right foot, initial encounter; M79.89 Other specified soft tissue disorders; R60.9 Edema, unspecified; W19.XXXA Unspecified fall, initial encounter
CPT/HCPCS: 73630; 80048

== ENCOUNTER 2025-07-16 10:52 | Outpatient (CLI) | payer OTHER, SELFPAY ==
[2025-07-16 12:23] LABS: Anion Gap 9.9 mEq/L (5-15); Blood Urea Nitrogen 14 mg/dl (7-17); Calcium 10.2 mg/dl (8.4-10.2); Carbon Dioxide 31 mmol/L (22.0-30.0); Chloride 101 mmol/L (98-107); Creatinine,Serum 0.80 mg/dl (0.52-1.04); Estimated Glomerular Filt Rate 75 ml/min (>60); GFR (African American) 91 ML/MIN (>60); Glucose 97 mg/dl (74-100); Potassium 3.9 mmoL/L (3.5-5.1); Sodium 138 mmol/L (136-145)
== END 2025-07-16 23:59 | disposition home or self-care (01) ==
LOC: LAB 10:53
PROVIDERS: PCP Family Medicine; Visit Provider Nurse Practitioner Family
DX: I49.9 Cardiac arrhythmia, unspecified (principal); R60.0 Localized edema; M79.89 Other specified soft tissue disorders; I51.89 Other ill-defined heart diseases; E78.5 Hyperlipidemia, unspecified
CPT/HCPCS: 36415; 80048

== ENCOUNTER 2025-08-06 12:50 | Outpatient (CLI) | payer OTHER, SELFPAY ==
--- NOTE | 2025-08-06 13:00 | CA_ITS ---
APPROVED REPORT EXAM: Comprehensive 2D, Doppler, and color-flow Echocardiogram Balance Staff Inspector: RAJI Jay, RVS Ht: 5 ft 2 in Wt: 197lbs BSA: 1.90 HR: 100 bpm BP: 165/74 mmHg Indications: Diastolic Dysfunction, LVH, CAD, Exsmoker, DM, HTN, HLD 2D Dimensions IVSd 1.56 cm F: 0.6-1.0 LA Volume 88.10 mL PWd 1.32 cm F: 0.6 - 1.0 LA Volume Index 46.37 mL/m2 (M/F) 16-34 Left Atrium 2.32 cm F: 2.7 - 3.8 EF AP4 49.00 % GL Strain -15.7 % M-Mode Dimensions RVDd 2.38 cm (0.9-2.6) LA Diam 2.86 cm (1.9-4.0) LVDd 4.11 cm (3.5-5.7) LVDs 2.56 cm (3.5-5.7) IVSd 1.26 cm (0.6-1.1) PWd 1.24 cm (0.6-1.1) EF (Teich) 68.30% EPSs 0.40 cm FS 37.70% EDV (Teich) 74.70 mL TAPSE 2.06 (<1.7) ESV (Teich) 23.70 mL LV Diastology E Decel Time 187 (160-240 msec) E/A Ratio 0.82 MED A' 11.00 cm/s LAT A' 12.90 cm/s Aortic Valve NEVILLE Index 1.49 cm2/m2 AoV Peak Sammy. 144.0 (50-130 cm/s) AO Peak GR. 8.30 mmHg AO Mean GR. 4.20 (<5 mmHg) AO VTI 24.8 (18-25 cm) NEVILLE (VTI) 2.91 (2.5-4.5 cm2) Mitral Valve MV A Velocity 100.0 (40-130 cm/s) E/A Ratio 0.82 Tricuspid Valve TR P. Velocity 245.00 cm/s RAP Estimate 10.00 mmHg RVSP 33.90 mmHg Left Ventricle The left ventricle is normal size. Left ventricular systolic function is normal. The left ventricular ejection fraction is within the normal range. There is increased left ventricular wall thickness. Asymmetric proximal septal thickening is present. IVSD is 1.4 cm. There is no LVOT obstruction at rest or with Valsalva. There is normal LV segmental wall motion. The left ventricular diastolic function is normal. LVEF is 55% Right Ventricle The right ventricle is normal size. The right ventricular systolic function is normal. Atria The left atrium is mildly dilated. The right atrium is mildly dilated. There is no color Doppler evidence of interatrial shunt. Aortic Valve The aortic valve is mildly thickened. There is no hemodynamically significant aortic valvular stenosis. No aortic regurgitation is present. Mitral Valve The mitral valve is normal in structure. No evidence of systolic anterior motion. No evidence of mitral valve stenosis. Trace mitral regurgitation is present. Tricuspid Valve The tricuspid valve leaflets are thin and pliable. Mild tricuspid regurgitation. RVSP is 20-25 mmHg. Pulmonic Valve The pulmonary valve is grossly normal in structure. Trace pulmonic valve regurgitation is present. Great Vessels The aortic root is normal in size. IVC is normal in size and collapses >50% with inspiration. Pericardium There is no pericardial effusion. Other Information Study Quality: Fair Conclusion Normal biventricular systolic function. There is increased left ventricular wall thickness. Asymmetric proximal septal thickening is present. IVSD is 1.4 cm. There is no LVOT obstruction at rest or with Valsalva. Mild TR. In the setting of asymmetric increase in LV wall thickness (IVSd 1.4 cm), further evaluation with cardiac MRI (HCM protocol) is suggested to rule out HCM. Clinical correlation is required. Electronically signed by : Shonda Borges MD 08/06/2025 17:17:19
== END 2025-08-06 23:59 | disposition home or self-care (01) ==
LOC: RT 12:51
PROVIDERS: PCP Family Medicine; Visit Provider Nurse Practitioner Family
DX: I07.1 Rheumatic tricuspid insufficiency (principal); I11.9 Hypertensive heart disease without heart failure; I49.9 Cardiac arrhythmia, unspecified; M79.89 Other specified soft tissue disorders; E78.5 Hyperlipidemia, unspecified; Z87.891 Personal history of nicotine dependence; E11.9 Type 2 diabetes mellitus without complications; R93.1 Abnormal findings on diagnostic imaging of heart and coronary circulation
CPT/HCPCS: 93306

== ENCOUNTER 2025-08-17 13:28 | Outpatient (CLI) | payer OTHER, SELFPAY ==
--- NOTE | 2025-08-17 13:30 | CT_ITS ---
FINAL REPORT TECHNIQUE: Pre-and postcontrast images of the abdomen were performed by computed tomography. Extensive 3-D reconstruction images were performed. A CTA was performed. This study was performed with techniques to keep radiation doses as low as reasonably achievable (ALARA). Individualized dose reduction techniques using automated exposure control or adjustment of mA and/or kV according to the patient's size were employed. CLINICAL HISTORY: penny COMPARISON: None FINDINGS: ABDOMEN: The lung bases are clear. There is a large hiatal hernia eccentric to the left. The gallbladder is absent. Precontrast images demonstrate no evidence of nephrolithiasis. No adrenal masses are identified. The liver, spleen and pancreas are unremarkable. CTA: The abdominal aorta is proper caliber. The SMA, celiac axis, and AAMIR are patent. There is no significant stenosis or calcification. The renal arteries are patent bilaterally without evidence of significant stenosis. IMPRESSION: No evidence of renal vascular hypertension or significant renal artery stenosis. Reviewed, Interpreted and Dictated by Pool Alexandra MD Transcribed by Ifeoma Steen Authenticated and [facility]
[2025-08-17 13:56] LABS: Blood Urea Nitrogen 15 mg/dl (7-17); Creatinine,Serum 0.90 mg/dl (0.52-1.04); Estimated Glomerular Filt Rate 66 ml/min (>60); GFR (African American) 80 ML/MIN (>60)
[2025-08-17] MEDS: SODIUM CHLORIDE 0.9% 10ML SYR (RAD ONLY) 10 ML IV (14:31)
[2025-08-17] MEDS: 0.9 % SODIUM CHLORIDE 50 ML VIAL 40 ML IV (14:31)
[2025-08-17] MEDS: IOPAMIDOL-370 (76%);100ML BOTTLE 100 ML IV (14:31)
== END 2025-08-17 23:59 | disposition home or self-care (01) ==
LOC: RAD 13:30
PROVIDERS: PCP Family Medicine; Visit Provider Nurse Practitioner Family
DX: I70.1 Atherosclerosis of renal artery (principal)
CPT/HCPCS: 36415; 74175; 82565; 84520; Q9967